=== PATIENT | male | born 1945 | race Caucasian/White ===

== ENCOUNTER 2020-11-05 15:00 | Emergency (ER) | payer MEDICARE, SELFPAY ==
[2020-11-05 15:14] VITALS: BP 174/87; PULSE 91; RESP 18; TEMP 37.4; O2SAT 98
--- NOTE | 2020-11-05 15:46 | ED.SKABFB ---
HPI - Skin/Abscess/Foreign Bdy General Chief complaint: Skin/Abscess/Foreign Body Stated complaint: rash to side of head Time Seen by Provider: 11/05/20 15:46 History of Present Illness HPI narrative: 75 yo male presents to the ED for a rash. Painful scabbed rash to the right side of the scalp for the past few days. No other symptoms. He has not tried anything for treatment. Related Data Allergies Allergy/AdvReac Type Severity Reaction Status Date / Time amoxicillin [From Augmentin] AdvReac Vomiting Verified 11/05/20 15:19 clavulanic acid AdvReac Vomiting Verified 11/05/20 15:19 [From Augmentin] oxycodone AdvReac Other Verified 11/05/20 15:19 Review of Systems Constitutional: Constitutional: Denies fever(s) and Denies weakness Eyes: Eyes: Reports no additional eye complaints and Denies change in vision ENT: Denies dizziness and Denies sore throat Cardiovascular: Cardiovascular: Denies chest pain Respiratory: Respiratory: Denies dyspnea Gastrointestinal: Gastrointestinal: Denies nausea Neurologic: Denies dizziness and Denies weakness PMFSH Past Medical History Medical History Diabetes mellitus, type II HTN (hypertension) Social History Social History Gender identity (if verbalized by the patient): Male Exam Const: General: no acute distress and alert Nutritional Appearance: well nourished Orientation/consciousness: patient oriented x3 HENMT: Ears: external ears normal and EAC's normal Other: vesicular rash with some open and scabbed areas in the right C2 dermatome. No facial involvement. Eyes: Conjunctivae: conjunctivae normal Pupils: Equal, round and reactive pupils present EOM: EOMs intact bilaterally Neck: Neck: normal visual inspection Resp: Effort & Inspection: normal respiratory effort Auscultation: clear to auscultation bilaterally Cardio: Rate: regular rate Rhythm: regular rhythm Skin: General skin exam: normal color Neuro: General: patient oriented x3, moves all extremities, no focal motor deficits and CN's II-XI intact bilaterally Speech: normal speech Psych: Mental Status: mental status grossly normal Affect: normal affect Course Vital Signs Vital signs: Vital Signs Temperature 37.4 C 11/05/20 15:14 Pulse Rate 91 11/05/20 15:14 Respiratory Rate 18 11/05/20 15:14 Blood Pressure 174/87 H 11/05/20 15:14 Pulse Oximetry 98 11/05/20 15:14 Temperature 37.4 C 11/05/20 15:14 Pulse Rate 91 11/05/20 15:14 Respiratory Rate 18 11/05/20 15:14 Blood Pressure 174/87 H 11/05/20 15:14 Pulse Oximetry 98 11/05/20 15:14 MDM - Skin/Abscess/Foreign Bdy MDM Narrative Medical decision making narrative: Examine consistent with shingles Medical Records Attestation: I reviewed the patient's medical records. Discharge Plan Discharge Clinical Impression: Shingles Patient Disposition: Home, Self-Care Condition: Stable Instructions: Antibiotic Pham Orosco (ED) Prescriptions: New valacyclovir 1 gram tablet 1,000 mg PO Q8H Qty: 20 RF: 0 Follow-up/Referrals: PHYSICIAN NOT ON STAFF,NONSTAFF [Non-Staff] -
[2020-11-05] MEDS: valACYclovir HCL 500 MG TABLET 1000 MG PO (16:35)
== END 2020-11-05 16:36 | disposition home or self-care (01) ==
PROVIDERS: Emergency Provider Emergency Medicine; PCP Internal Medicine
DX: B02.9 Zoster without complications (principal); E11.9 Type 2 diabetes mellitus without complications; I10 Essential (primary) hypertension
CPT/HCPCS: 99283; A9270

== ENCOUNTER 2023-05-15 09:05 | Inpatient (IN) | payer MEDICARE, SELFPAY ==
[2023-05-15] VITALS (11 sets, daily range): BP systolic 126–166; BP diastolic 67–94; PULSE 63–91; RESP 14–19; TEMP 36.2–37.6; O2SAT 97–100; BMI 23.6
--- NOTE | ~2023-05-15 | XR_ITS ---
Cervical Spine: AP, lateral, open-mouth views Clinical History: Pain Findings: There is anterior fusion from C6 to C7. There are anterior osteophytes throughout the cervi bonifacio spine. Remaining disc spaces are well preserved. There is moderate facet arthropathy throughout t he cervical spine. Pre-vertebral soft tissues are unremarkable. Impression: Moderate degenerative spondylosis. Anterior fusion of C6-C7. No fracture or subluxation evident. Reviewed, dictated and finalized at location . Impression: Moderate degenerative spondylosis. Anterior fusion of C6-C7. No fracture or subluxation evident.
--- NOTE | ~2023-05-15 | US_ITS ---
EXAMINATION: US carotid duplex BI DATE: 05/15/2023 15:33 INDICATION: Old infarct in the right basal ganglia. Cerebrovascular accident. TECHNIQUE: Grayscale, color Doppler, and pulsed Doppler images of the cervical carotid arteries were obtained. The degree of vessel stenosis is placed in one of the following categories: normal, <50%, 5 0-69%, >=70% but less than near-occlusion, near-occlusion, or total occlusion. Note that percent sten osis relative to normal distal artery lumen diameter is indirectly measured from velocity measurement s as described by Eusebio, et al. Radiology 2003; 229:340-346. COMPARISON: None. FINDINGS: RIGHT: The right common carotid artery (CCA) peak systolic velocity (PSV) is 63 cm/s. The right internal car otid artery (ICA) PSV is 10 cm/s. The right ICA end-diastolic velocity (EDV) is 5 cm/s. The right ICA /CCA PSV ratio is 0.1. Grayscale and color Doppler images yield an estimate of >=50% diameter reducti on from plaque in the ICA. There is antegrade flow in the right vertebral artery. LEFT: The left CCA PSV is 71 cm/s. The left ICA PSV is 92 cm/s. The left ICA EDV is 29 cm/s. The left ICA/C CA PSV ratio is 1.3. Grayscale and color Doppler images yield an estimate of <50% diameter reduction from plaque in the ICA. There is antegrade flow in the left vertebral artery. IMPRESSION: 1. 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 2. <50% stenosis in the left internal carotid artery. Reviewed, dictated and finalized at location A.
--- NOTE | ~2023-05-15 | CT_ITS ---
EXAMINATION: CT brain wo con DATE: 05/15/2023 10:01 INDICATION: One month of left-sided weakness TECHNIQUE: Computed tomography (CT) of the head was performed without intravenous contrast. Sagittal and coronal reconstructions were performed. The mA was adjusted according to patient size. Iterative reconstruction technique was employed. The dose-length product was 605.33 mGy-cm. COMPARISON: None FINDINGS: Moderate-sized region of encephalomalacia in the right frontal lobe extending to the insula and right basal ganglia consistent with sequela of chronic infarct. No acute intracranial hemorrhage, acute in farction or abnormal extra axial fluid collection. Symmetric prominence of the sulci consistent with mild age-appropriate diffuse cerebral volume loss. Ventricles are normal and symmetric. No mass/mass effect. Changes of bilateral intraocular lens replacement. The orbits, paranasal sinuses and mastoid air cells are normal. Intracranial calcified cerebral atherosclerosis is noted. IMPRESSION: 1. Encephalomalacia consistent with moderate-sized chronic infarct involving the right frontal lobe, basal ganglia and insula. Reviewed, dictated and finalized at location B. IMPRESSION: 1. Encephalomalacia consistent with moderate-sized chronic infarct involving th e right frontal lobe, basal ganglia and insula.
--- NOTE | ~2023-05-15 | MR_ITS ---
EXAMINATION: MR brain/brain stem wo/w con DATE: 05/15/2023 14:02 INDICATION: Cerebrovascular accident. Left hemiparesis. TECHNIQUE: Magnetic resonance imaging (MRI) of the brain and brainstem was performed without and with 15 mL MultiHance intravenous contrast. COMPARISON: Head CT 05/15/2023 FINDINGS: There are small old infarcts in left cerebellum. There is chronic encephalomalacia involvin g the right basal ganglia, right insula, and right frontoparietal region. There are old blood product s in the right basal ganglia. There are scattered areas of nonspecific increased T2-weighted signal i ntensity in the cerebral white matter, which is within normal limits for the patient's age. The ventr icles are normal in size. There are likely changes of ocular lens replacement surgeries. The paranasa l sinuses are clear. The mastoid air cells are normal. IMPRESSION: 1. Old infarcts involving the left cerebellum, right basal ganglia, right insula, and right frontopar ietal region. Reviewed, dictated and finalized at location A. IMPRESSION: 1. Old infarcts involving the left cerebellum, right basal ganglia, right insul a, and right frontoparietal region.
--- NOTE | ~2023-05-15 | CT_ITS ---
EXAMINATION: CTA brain carotid DATE: 05/16/2023 13:11 INDICATION: Cerebrovascular accident. Near occlusion stenosis of the right internal carotid artery. TECHNIQUE: Computed tomographic angiography (CTA) of the head was performed without and with 100 mL O mnipaque-350 intravenous contrast. CTA of the neck was performed with intravenous contrast. Automated exposure control and iterative reconstruction technique were employed. The dose-length product was 1 957.74 mGy-cm. Maximum intensity projection and volume rendered 3D-reconstructions were created by nohemi vasquez technologist on a separate workstation. COMPARISON: Head CT 05/15/2023, brain MRI 05/15/2023 FINDINGS: HEAD CTA: There is an old infarct in left cerebellum. There is an old infarct involving the right bas al ganglia, right insula, and right frontoparietal region. There is no intracranial hemorrhage, acute infarction, or abnormal intracranial mass lesion. The ventricles are normal in size. There are likel y changes of ocular lens replacement surgeries. There is mild mucosal thickening in left maxillary si nus. The mastoid air cells are normal. Left vertebral artery is dominant. There is no significant roseann nosis of basilar artery or the posterior cerebral arteries. There is total occlusion of right interna l carotid artery with supraclinoid reconstitution. There is no significant stenosis of left internal carotid artery. There is no significant stenosis of the anterior or middle cerebral arteries. Anterio r communicating artery is normal. The posterior communicating arteries are normal. There is no aneury sm. NECK CTA: There are no pathologically enlarged lymph nodes. There is no significant stenosis of the v ertebral arteries. 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 There is plaque in prox imal left internal carotid artery. There is 17% stenosis of the proximal left internal carotid artery relative to normal distal artery lumen diameter. There are changes of anterior fusion procedure at C 6-C7. There is moderate cervical spondylosis. IMPRESSION: 1. Old infarcts involving the left cerebellum, right basal ganglia, right insula, and right frontopar ietal region. 2. 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 3. 17% stenosis of the proximal left internal carotid artery relative to normal distal artery lumen d iameter (NASCET criteria). Reviewed, dictated and finalized at location A. IMPRESSION: 1. Old infarcts involving the left cerebellum, right basal ganglia, right insul a, and right frontoparietal region. 2. 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 3. 17% stenosis of the proximal left internal carotid artery relative to normal distal artery lumen diameter (NASCET criteria).
--- NOTE | 2023-05-15 09:08 | ECG_ITS ---
Measurements Intervals [place] Rate: 92 P: -31 [place]: 255 QRS: -27 QRSD: 134 T: 60 QT: 406 QTc: 502 Interpretive Statements SINUS RHYTHM WITH FIRST DEGREE AV BLOCK INTRAVENTRICULAR CONDUCTION DELAY INFERIOR INFARCT, AGE INDETERMINATE ANTERIOR INFARCT, AGE INDETERMINATE BORDERLINE ST-T WAVE ABNORMALITY- HIGH LATERAL LEADS BASELINE ARTIFACT- I, AVL ABNORMAL ECG NO PREVIOUS ECG AVAILABLE FOR COMPARISON Electronically Signed On 05-15-2023 9:50:36 CDT by Kal Rocha D.O.
[2023-05-15 09:19] LABS: Glucose Point of Care 144 mg/dl (65-105)
[2023-05-15 09:28] LABS: Basophils Percent Auto 0.4 % (0.2-1.2); Eosinophils Percent Auto 0.5 % (0-4.4); Hematocrit 42.5 % (42.0-52.0); Hemoglobin 14.2 g/dL (14.0-18.0); Immature Granulocyte Absolute 0.03 K/mm3 (0.00-0.031); Immature Granulocyte Percent A 0.4 % (0-0.5); Immature Platelet Fraction Pct 4.6 % (0.9-11.2); Lymphocytes Absolute Auto 1.18 K/mm3 (0.9-3.2); Lymphocytes Percent Auto 15.1 % (18.3-44.2); Mean Corpuscular HGB Conc 33.4 g/dl (32-36); Mean Corpuscular Hemoglobin 30.7 pg (26-34); Mean Platelet Volume 10.2 fl (7.4-10.4); Monocytes Absolute Auto 0.6 K/mm3 (0.1-0.6); Monocytes Percent Auto 7.1 % (2.6-8.5); Neutrophils Percent Auto 76.5 % (45.5-73.1); Platelet Count Result 129 k/mm3 (150-375); Red Blood Count 4.62 M/mm3 (4.6-6.20); Red Cell Distribution Width 12.8 % (11.5-14.5); White Blood Count 7.8 K/mm3 (4.5-10.0)
[2023-05-15 09:36] LABS: Alanine Aminotransferase 32 U/L (6-50); Albumin Level 4.5 g/dL (3.5-5.1); Alkaline Phosphatase 69 U/L (38-126); Anion Gap 9 mmol/L (8-16); Aspartate Amino Transferase 44 U/L (17-59); Bilirubin,Total 0.9 mg/dL (0.2-1.3); Blood Urea Nitrogen 16 mg/dL (9-20); Calcium 8.8 mg/dL (8.4-10.2); Carbon Dioxide 26 mmol/L (22-30); Chloride 107 mmol/L (98-107); Estimated CRCL calculation 62 ml/min; Estimated Glomerular Filt Rate > 60; Glucose 131 mg/dL (65-110); Sodium 142 mmol/L (137-145)
[2023-05-15 10:37] LABS: Appearance Urine Clear (Clear); Bacteria Urine None Seen /hpf; Bilirubin Urine Negative (Negative); Blood Urine 2+ (Negative); Color Urine Yellow (Yellow); Glucose Urine UA 2+ mg/dL (Negative); Ketones Urine Negative (Negative); Leukocyte Esterase Ur Negative LEU/UL (Negative); Nitrate Urine Negative (Negative); Non Pathogenic Casts 0-2; Protein Urine 1+ mg/dL (Negative); RBC Urine 0-2 /hpf (0-2); Specific Grav Ur 1.013 (1.001-1.035); Squamous Epithelial Cell Urine None seen /hpf (Few); Urobilinogen Urine 0.2 mg/dL (<2.0); WBC Urine 0-5 /hpf; pH Urine 5.5 (5.0-9.0)
[2023-05-15 10:44] LABS: Add Urine Microscopic? YES
--- NOTE | 2023-05-15 11:02 | PC.NURSE ---
Patient report given to LOBO De Dios. All questions answered and care of patient transferred.
--- NOTE | 2023-05-15 11:04 | ED.GENADULT ---
HPI - General Adult General Chief complaint: Weakness Stated complaint: weakness Time Seen by Provider: 05/15/23 09:07 History of Present Illness HPI narrative: 77-year-old male present emerged department for evaluation of generalized weakness, hypoglycemia and left-sided deficit that has been ongoing for months. Patient is a known diabetic and is on insulin. Patient is very noncompliant with his medications. Patient states that he was feeling weak this morning was unable to get off the floor and EMS was called. Upon arrival to the scene patient's blood sugar was 42. He was treated with oral glucose and patient's blood sugar improved but he still had generalized weakness. Patient was transported to the ED for further evaluation. Upon arrival to the ED patient does admit that he has had increased left hand weakness over the course of the last month. Patient states that he does have a prior history of CVA approximately 5 years ago but had no deficit from this. Patient does not take any blood thinners and does not take his prescribed aspirin. Related Data Home Medications Medication Instructions Recorded Confirmed atorvastatin 80 mg tablet 80 mg PO HS 05/15/23 05/15/23 dapagliflozin propanediol 5 mg 20 mg PO HS 05/15/23 05/15/23 tablet (Farxiga) gabapentin 400 mg capsule 400 mg PO HS PRN nerve pain 05/15/23 05/15/23 glimepiride 4 mg tablet 4 mg PO HS 05/15/23 05/15/23 lisinopril 5 mg tablet 5 mg PO HS 05/15/23 05/15/23 Allergies Allergy/AdvReac Type Severity Reaction Status Date / Time amoxicillin [From Augmentin] AdvReac Vomiting Verified 11/05/20 15:19 clavulanic acid AdvReac Vomiting Verified 11/05/20 15:19 [From Augmentin] oxycodone AdvReac Other Verified 11/05/20 15:19 Review of Systems Review of Systems: All systems reviewed & are unremarkable except as noted in HPI and below PMFSH Past Medical History Medical History (Updated 05/15/23 @ 13:36 by Katherin Marsh PA-C) Cerebrovascular accident Coronary artery disease Hypertension Nicotine dependence Shingles Type 2 diabetes mellitus Surgical History Surgical History (Updated 05/15/23 @ 13:32 by Katherin Marsh PA-C) History of amputation of toe (2016) History of cardiac catheterization History of coronary artery bypass graft (05/11/08) Family History Family History (Updated 05/15/23 @ 13:33 by Katherin Marsh PA-C) Other Cancer Diabetes mellitus Heart disease Social History Social History (Updated 05/15/23 @ 13:35 by Katherin Marsh PA-C) Social History: Surrogate medical decision maker: Domonique Adler, spouse. Code status: Full code. Smoking status: Current some day smoker Tobacco type: cigars Alcohol intake: current Drinks per week: 7 Substance use: never Lack of Transportation: No Lack of Food: Never True Current Housing: I Have Housing Concerned About Future Housing: No Difficulty Paying Gas/Electric Bills: No Difficulty Paying for Meds: No Currently Unemployed: No Education: Decline to Answer Difficulty w/ Childcare or Family Care: No Additional living arrangements comments: Lives with spouse in [place]. Additional occupation/education comments: Retired. Spiritual care concerns: No Exam Narrative: APPEARANCE: Well appearing, no pain, no distress, well-nourished. HEAD: normocephalic, atraumatic. EYES: PERRLA/EOMI, conjunctivae clear. NOSE: Normal no drainage NECK: Supple. No adenopathy, no masses. RESPIRATORY: Airway patent, respirations nonlabored. Clear to auscultation bilaterally, no rales, rhonchi, wheezing. CARDIOVASCULAR: Regular rate and rhythm without murmurs rubs or gallops. ABDOMINAL: Soft, nontender, nondistended, normal bowel sounds MUSCULOSKELETAL: Moves all extremities. Strength/ROM intact, No edema, No calf tenderness. NEURO: Left hand drift and ataxia SKIN: Warm, dry. Normal Color PSYCHIATRIC: Normal affect/mood. Course Course Emergenc
[2023-05-15] MEDS: ASPIRIN 81 MG CHEWABLE TABLET 324 MG PO (12:03)
--- NOTE | 2023-05-15 12:33 | ADMGEN ---
This patient, Santhosh Adler, was admitted to Medical Room 345-01. Patient/family oriented to hospital policies and general routines including ID bracelet, bed and alarms, visiting hours, pain management, procedures, bathroom and other care routines, personal items, smoking policy, room service/diet, and visiting hours. Information on how to activate the Rapid Response Team has been discussed. Patient/Family are encouraged to report perceived risks to care and to ask questions if they do not understand what they are told or what they should do.
--- NOTE | 2023-05-15 13:29 | PM.IMHP ---
H&P: HPI History of Present Illness Date/Time: 05/15/23 13:30 Chief Complaint: Weakness. Narrative: This is a 77-year-old male with history of stroke, coronary artery disease, hypertension, and type 2 diabetes mellitus who presented to the emergency department via EMS from home for evaluation of weakness. The patient provides the following history. He was feeling weak this morning and apparently had a fall and was unable to get off the floor. It is not unusual for him to fall as he has balance issues for several reasons. 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 EMS was summoned and his glucose was 42 on their arrival. He received oral glucose with improvement however he was still very weak and he was brought in for evaluation. On arrival to the ED he was noticed to have left-sided weakness however he goes on to say that this has been present for months however more recently his left arm and especially his left hand have been more weak and he is dropping things. He has thus far blames his symptoms on peripheral neuropathy. He had a stroke 5 years ago but reports having no deficits from that. CT of the brain shows an area of encephalomalacia related to a chronic infarct in the right frontal lobe, basal ganglia, and insula consistent with these findings. Vital signs have been stable since arrival. Labs are pretty unremarkable. He is being admitted in this setting for further workup and PT/OT evaluation as he was unable to ambulate without assistance in the ED. at the time my evaluation he has no acute complaints. Review of Systems Review of Systems: Twelve systems were reviewed. He has chronically poor balance as detailed above with frequent falls. No recent cold or flu symptoms. No chest pain, pleuritic pain, or palpitations. He denies cough and shortness of breath. Appetite has been good. No nausea, vomiting, or diarrhea. No dysuria. Except as documented, all other systems were reviewed and are negative PMFSH Past Medical History Medical History (Updated 05/15/23 @ 13:36 by Katherin Marsh PA-C) Cerebrovascular accident Coronary artery disease Hypertension Nicotine dependence Shingles Type 2 diabetes mellitus Surgical History Surgical History (Updated 05/15/23 @ 13:32 by Katherin Marsh PA-C) History of amputation of toe (2016) History of cardiac catheterization History of coronary artery bypass graft (05/11/08) Family History Family History (Updated 05/15/23 @ 13:33 by Katherin Marsh PA-C) Other Cancer Diabetes mellitus Heart disease Social History Social History (Updated 05/15/23 @ 13:35 by Katherin Marsh PA-C) Social History: Surrogate medical decision maker: Domonique Adler, spouse. Code status: Full code. Smoking status: Current some day smoker Tobacco type: cigars Alcohol intake: current Drinks per week: 7 Substance use: never Lack of Transportation: No Lack of Food: Never True Current Housing: I Have Housing Concerned About Future Housing: No Difficulty Paying Gas/Electric Bills: No Difficulty Paying for Meds: No Currently Unemployed: No Education: Decline to Answer Difficulty w/ Childcare or Family Care: No Additional living arrangements comments: Lives with spouse in [place]. Additional occupation/education comments: Retired. Spiritual care concerns: No Meds Home Medications and Allergies Home Medications Medication Instructions Recorded Confirmed Type atorvastatin 80 mg tablet 80 mg PO HS 05/15/23 05/15/23 History dapagliflozin propanediol 5 mg 20 mg PO HS 05/15/23 05/15/23 History tablet (Farxiga) gabapentin 400 mg capsule 400 mg PO HS PRN nerve pain 05/15/23 05/15/23 History glimepiride 4 mg tablet 4 mg PO HS 05/15/23 05/15/23 History lisinopril 5 mg tablet 5 mg PO HS 05/15/23 05/15/23 History Allergies Allergy/AdvReac Type Severity Reaction Status Date / Ti
[2023-05-15 13:54] LABS: Creatine Kinase 859 U/L (55-170)
[2023-05-15 13:56] LABS: Hemoglobin A1C 6.1 % (<5.7)
[2023-05-15 14:52] LABS: Thyroid Stimulating Hormone Reflex 0.588 uIU/mL (0.465-4.68)
[2023-05-15 17:03] LABS: Glucose Point of Care 207 mg/dl (65-105)
[2023-05-15] MEDS: lisinopriL 5 MG TABLET PO (20:02)
[2023-05-15 20:44] LABS: Glucose Point of Care 256 mg/dl (65-105)
[2023-05-16] VITALS (9 sets, daily range): BP systolic 118–148; BP diastolic 64–77; PULSE 52–81; RESP 13–16; TEMP 36.1–36.8; O2SAT 98–100
--- NOTE | 2023-05-16 | ECHO_ITS ---
Patient Info Name: Santhosh Adler Age: 77 years : 1945 Gender: Male Ht: 70 in Wt: 215 lbs BSA: 2.22 m2 HR: 70 bpm BP: 148 / 77 mmHg Heart Rhythm: Sinus Rhythm Technical Quality: Fair Exam Date: 05/16/2023 11:27 AM Exam Location: [facility] Pulmonary Patient Status: Inpatient Admit Date: 05/15/2023 Staff Ordering Physician: Katherin Marsh PA-C Radiology Interventional Physician: Karime Lima RDCS Attending Provider: Gomez Luis MD Referring Physician: Salma MILTON; Exam Type: CA echo doppler color flow Study Info Indications - cva/htn/cad Complete two-dimensional, color flow and Doppler transthoracic echocardiogram is performed. Summary 1. Complete two-dimensional, color flow and Doppler transthoracic echocardiogram is performed. 2. Left ventricular chamber dimension is normal. 3. Left ventricular systolic function is mildly reduced, estimated at 45-50%. 4. There is moderately increased left ventricular wall thickness. 5. Left ventricular septal wall motion is abnormal with septal motion related to bundle branch block. The inferior wall appears hypokinetic. The apex appears hypokinetic on some views. 6. Right ventricular chamber dimension is normal. 7. Right ventricular systolic function is reduced. 8. There is moderate mitral valve regurgitation. 9. There is trace tricuspid valve regurgitation. 10. The aortic root size at the sinus of Valsalva is dilated. Left Ventricle Left ventricular chamber dimension is normal. Left ventricular systolic function is mildly reduced, estimated at 45-50%. There is moderately increased left ventricular wall thickness. Left ventricular septal wall motion is abnormal with septal motion related to bundle branch block. The inferior wall appears hypokinetic. The apex appears hypokinetic on some views. Right Ventricle Right ventricular chamber dimension is normal. Right ventricular systolic function is reduced. Left Atria Left atrial chamber dimension is normal. Right Atria Right atrial chamber dimension is normal. Atrial Septum Intact interatrial septum visualized by color flow imaging. Aortic Valve The aortic valve is probable trileaflet. There is no aortic valve stenosis. There is no aortic valve regurgitation. There is mild aortic valve calcification. Pulmonic Valve The pulmonic valve is not well visualized. Mitral Valve There is moderate mitral valve regurgitation. The mitral valve annulus is mildly calcified. Tricuspid Valve There is trace tricuspid valve regurgitation. Pericardium/Pleural There is no pericardial effusion. Inferior Vena Cava Normal inferior vena cava with >50% collapse upon inspiration consistent with normal right atrial pressure, 3 mmHg. Aorta The aortic root size at the sinus of Valsalva is dilated. Left Ventricular Outflow Tract Name Value Normal LVOT 2D LVOT Diameter 2.2 cm LVOT Doppler LVOT Peak Gradient 3 mmHg LVOT Mean Gradient 1 mmHg LVOT VTI 14 cm LVOT VTI/AV VTI Ratio 0.6 LVOT Stroke Volume 52 ml LVOT CO 3.4 l/min
[2023-05-16 05:48] LABS: Hematocrit 42.1 % (42.0-52.0); Hemoglobin 13.9 g/dL (14.0-18.0); Immature Platelet Fraction Pct 5.7 % (0.9-11.2); Mean Corpuscular Hemoglobin 30.5 pg (26-34); Mean Corpuscular Volume 92.3 fl (80-100); Mean Platelet Volume 10.8 fl (7.4-10.4); Platelet Count Result 127 k/mm3 (150-375); Red Blood Count 4.56 M/mm3 (4.6-6.20); Red Cell Distribution Width 12.8 % (11.5-14.5); White Blood Count 6.4 K/mm3 (4.5-10.0)
[2023-05-16 05:57] LABS: Anion Gap 7 mmol/L (8-16); Blood Urea Nitrogen 18 mg/dL (9-20); Calcium 8.9 mg/dL (8.4-10.2); Carbon Dioxide 29 mmol/L (22-30); Chloride 105 mmol/L (98-107); Estimated CRCL calculation 64 ml/min; Estimated Glomerular Filt Rate > 60; Glucose 124 mg/dL (65-110); Sodium 141 mmol/L (137-145)
[2023-05-16] MEDS: GABAPENTIN 400 MG CAPSULE PO (06:39)
[2023-05-16] MEDS: ASPIRIN 81 MG ENTERIC TABLET PO (08:34)
[2023-05-16 08:37] LABS: Glucose Point of Care 112 mg/dl (65-105)
--- NOTE | 2023-05-16 10:04 | PM.IMPN ---
Progress Note: A&P Assessment and Plan (1) Generalized weakness: Code(s): R53.1 - Weakness Status: Acute (2) Hypoglycemia: Code(s): E16.2 - Hypoglycemia, unspecified Status: Acute (3) Cerebrovascular accident: Code(s): I63.9 - Cerebral infarction, unspecified Status: Acute (4) Type 2 diabetes mellitus: Code(s): E11.9 - Type 2 diabetes mellitus without complications Status: Acute (5) Thrombocytopenia: Code(s): D69.6 - Thrombocytopenia, unspecified Status: Acute (6) Hypertension: Code(s): I10 - Essential (primary) hypertension Status: Acute (7) Coronary artery disease: Code(s): I25.10 - Atherosclerotic heart disease of [place] coronary artery without angina pectoris Status: Acute (8) Carotid arterial disease: Code(s): I77.9 - Disorder of arteries and arterioles, unspecified Status: Acute (9) Acute CVA (cerebrovascular accident): Code(s): I63.9 - Cerebral infarction, unspecified Status: Acute Plan General weakness Multiple factors, overt CVA and hypoglycemia Hypoglycemia Oral medications Start is standing scale Hypoglycemia protocol is initiated Currently hypoglycemia is corrected Right internal carotid stenosis Neurologist saw examined the patient, continue aspirin Plavix p.o. Will transfer patient to other facility for vascular surgeon evaluation treatment old CVA Patient is on aspirin and Plavix Neuro check fall precaution Neurologist also recommended to continue home medications Atorvastatin 80 mg at night 2. Farsi eager 20 mg at night 3. Gabapentin 400 mg at night on p.r.n. lisinopril 5 mg at night .? Subjective Date/time seen: 05/16/23 10:04 Interval history: I saw on exam patient today, patient still has general weakness, Exam Narrative: GENERAL: Pleasant, in no acute distress. Well-nourished. - EYES: EOMI. Anicteric. - HENT: Moist mucous membranes. - LUNGS: Clear to auscultation bilaterally, no wheezing, rhonchi, or rales. - CARDIOVASCULAR: Regular rate and rhythm. No murmur. No JVD. - ABDOMEN: Soft, non-tender and non-distended. No palpable masses. - EXTREMITIES: No edema. Peripheral pulses 2+. Non-tender. - NEUROLOGIC: left hemiparesis and left hypoesthesia with hyperreflexia and upgoing left plantar response. . CN II-XII grossly intact. - PSYCHIATRIC: Awake, Alert and oriented x 3. Appropriate mood and affect. - SKIN: No rashes or lesions. Warm. - LYMPH: No cervical lymphadenopathy. Objective Data Vital Signs Vital Signs: Vital Signs - 24 hr 05/15/23 10:34 05/15/23 10:35 05/15/23 10:36 Temperature Pulse Rate 91 91 90 Respiratory Rate 19 19 15 Blood Pressure 144/78 H Pulse Oximetry 99 100 99 Oxygen Delivery 05/15/23 10:45 05/15/23 10:46 05/15/23 12:30 Temperature Pulse Rate 84 77 Respiratory Rate 17 16 Blood Pressure 126/67 Pulse Oximetry 98 98 Oxygen Delivery Room Air 05/15/23 14:51 05/15/23 16:00 05/15/23 20:00 Temperature 97.1 F L Pulse Rate 78 63 71 Respiratory Rate 16 Blood Pressure 158/78 H Pulse Oximetry 100 Oxygen Delivery 05/15/23 21:37 05/16/23 00:00 05/15/23 21:18 Temperature 99.6 F Pulse Rate 83 54 L Respiratory Rate 14 Blood Pressure 161/83 H Pulse Oximetry 97 97 Oxygen Delivery Room Air 05/16/23 04:00 05/16/23 05:40 05/16/23 08:30 Temperature 97.6 F Pulse Rate 66 70 Respiratory Rate 13 Blood Pressure 148/77 H Pulse Oximetry 98 Oxygen Delivery Room Air 05/16/23 08:00 Temperature Pulse Rate 81 Respiratory Rate Blood Pressure Pulse Oximetry Oxygen Delivery Intake/Output Intake/Output: Intake & Output 05/13/23 05/14/23 05/15/23 05/16/23 23:59 23:59 23:59 23:59 Intake Total 840 1560 Balance 840 1560 Meds/Results Medications: Active Medications Generic Name Dose Route Start Last Admin Trade Name Freq PRN Reason Stop Dose
--- NOTE | 2023-05-16 11:39 | WPDNEURCNPN ---
Assessment and Plan Assessment and plan (1) Type 2 diabetes mellitus: Qualifiers: Diabetes mellitus terminal makeup operator insulin use: with terminal makeup operator use Diabetes mellitus complication status: with circulatory complication Code(s): E11.9 - Type 2 diabetes mellitus without complications Status: Acute (2) Hypertension: Code(s): I10 - Essential (primary) hypertension Status: Acute (3) Coronary artery disease: Code(s): I25.10 - Atherosclerotic heart disease of [place] coronary artery without angina pectoris Status: Acute (4) Nicotine dependence: Code(s): F17.200 - Nicotine dependence, unspecified, uncomplicated Status: Acute (5) Carotid arterial disease: Code(s): I77.9 - Disorder of arteries and arterioles, unspecified Status: Acute Plan 1. 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 Near occlusion of the right internal carotid artery 3. Diabetic neuropathy plan obtain the echocardiogram in addition to the CTA of the brain and then arrange for the transfer to the vascular service. In the meantime will be continued on aspirin and Plavix. Consult date: 05/16/23 HPI: Santhosh Adler is a 77 year old maleAdmitted to the hospital through the emergency room for the complaints of generalized weakness in addition to the history of being diabetic, having had the left-sided neurological deficit from the previous stroke, and with the history that he has been on insulin as well though reportedly he is very noncompliant with his medication on the day of admission it was mentioned that he was feeling weak the morning and was unable to get off the floor when the EMS were called to the scene upon arrival his blood sugar was documented only 42 he was treated with oral glucose supplement but still he was complaining of being weak and was transported to emergency room for further evaluation. His medications included 1. Atorvastatin 80 mg at night 2. Farsi eager 20 mg at night 3. Gabapentin 400 mg at night on p.r.n. basis 4. glimepiride 4 mg at night 5.. lisinopril 5 mg at night . He does have ongoing history of hypertension, type 2 diabetes mellitus, coronary artery disease, and previous stroke in addition to the history of amputation of the toe and coronary artery bypass grafting in May of 2008 he is currently alcohol intake her 7 drinks per week currently some day smoker. Initial evaluation in the Emergency Room documented him to have the blood pressure 166/94 though he was afebrile CBC with low platelet count of 129 BMP he blood sugar of [address] normal lab. Initial CT of the head documented encephalomalacia consistent with moderate size chronic infarct involving the right frontal lobe basal ganglia and insular EKG revealed no atrial fibrillation. Subsequent to the hospitalization has had the brain MRI which documented in addition to right basal gangliar right insular and right frontoparietal stroke old infarcts involving the left cerebellum as well. And the carotid study showed near occlusion stenosis in the right internal carotid artery with less than 50% stenosis in left internal carotid artery. Echocardiogram is being done at this time. [facility] Past Medical History Medical History (Updated 05/16/23 @ 11:50 by Winston Foy MD) Cerebrovascular accident Coronary artery disease Hypertension Nicotine dependence Shingles Type 2 diabetes mellitus Surgical History Surgical History (Updated 05/15/23 @ 13:32 by Katherin Marsh PA-C) History of amputation of toe (2016) History of cardiac catheterization History of coronary artery bypass graft (05/11/08) Family History Family History (Updated 05/15/23 @ 13:33 by Katherin Marsh PA-C) Other Cancer Diabetes mellitus Heart disease Social History Social History (Updated 05/15/23 @ 13:35 by Katherin Marsh PA-C) Social History: Surrogate medical decision maker: Domonique Nayely, spouse. Code status: Full code. Smoking status: Curr
[2023-05-16] MEDS: CLOPIDOGREL BISULFATE 75 MG TABLET PO (12:29)
--- NOTE | 2023-05-16 13:21 | PCPTNOTE ---
On 05/16/23, the student, [Brisa Jones], provided care and completed [facility] documentation on this patient. I have reviewed the student's documentation and agree with the findings.
[2023-05-16 13:25] LABS: Glucose Point of Care 213 mg/dl (65-105)
[2023-05-16 17:02] LABS: Glucose Point of Care 263 mg/dl (65-105)
[2023-05-16] MEDS: INSULIN ASPART (*BKC) 100 UNITS/ML SUB-Q (17:08)
[2023-05-16] MEDS: lisinopriL 5 MG TABLET PO (20:25)
[2023-05-16 20:39] LABS: Glucose Point of Care 285 mg/dl (65-105)
[2023-05-17] VITALS (9 sets, daily range): BP systolic 130–150; BP diastolic 66–74; PULSE 49–83; RESP 16–18; TEMP 36.2–36.8; O2SAT 97–100
[2023-05-17 08:20] LABS: Glucose Point of Care 149 mg/dl (65-105)
[2023-05-17] MEDS: CLOPIDOGREL BISULFATE 75 MG TABLET PO (09:30)
[2023-05-17] MEDS: ASPIRIN 81 MG ENTERIC TABLET PO (09:30)
[2023-05-17 12:03] LABS: Glucose Point of Care 239 mg/dl (65-105)
[2023-05-17] MEDS: INSULIN ASPART (*BKC) 100 UNITS/ML SUB-Q ×2 (12:16→17:34)
--- NOTE | 2023-05-17 13:02 | PC.NURSE ---
Pt's came to nurses station requesting to speak with the RN. Pt's stated she wants the pt to be transferred to another hospital and stated that nothing is really being done here at [place]. RN educated pt's on CTA results and what neurology had written in their note yesterday. Family verbalized understanding. RN notified the hospitalist, Bryan, and neurologist, Yousif who both stated they would come and talk to the pt and family.
--- NOTE | 2023-05-17 14:29 | PM.IMPN ---
Progress Note: A&P Assessment and Plan (1) Generalized weakness: Code(s): R53.1 - Weakness Status: Acute (2) Hypoglycemia: Code(s): E16.2 - Hypoglycemia, unspecified Status: Acute (3) Cerebrovascular accident: Code(s): I63.9 - Cerebral infarction, unspecified Status: Acute (4) Type 2 diabetes mellitus: Qualifiers: Diabetes mellitus [facility] insulin use: with intermodal truck driver use Diabetes mellitus complication status: with circulatory complication Code(s): E11.9 - Type 2 diabetes mellitus without complications Status: Acute (5) Thrombocytopenia: Code(s): D69.6 - Thrombocytopenia, unspecified Status: Acute (6) Hypertension: Code(s): I10 - Essential (primary) hypertension Status: Acute (7) Coronary artery disease: Code(s): I25.10 - Atherosclerotic heart disease of [place] coronary artery without angina pectoris Status: Acute (8) Carotid arterial disease: Code(s): I77.9 - Disorder of arteries and arterioles, unspecified Status: Acute (9) Acute CVA (cerebrovascular accident): Code(s): I63.9 - Cerebral infarction, unspecified Status: Acute (10) Bradycardia: Code(s): R00.1 - Bradycardia, unspecified Status: Acute Plan General weakness Multiple factors, overt CVA and hypoglycemia Hypoglycemia Oral medications Start is standing scale Hypoglycemia protocol is initiated Currently hypoglycemia is corrected Right internal carotid stenosis Neurologist saw examined the patient, continue aspirin Plavix p.o. Management per neurologist recommendation old CVA Patient is on aspirin and Plavix Neuro check fall precaution Bradycardia Patient was monitors bradycardia 28 in the night Unclear etiology S Patient is not on beta-nida or calcium channel nida Consult court officer for evaluation and treatment, need to rule out sick sinus Neurologist also recommended to continue home medications Atorvastatin 80 mg at night 2. Farsi eager 20 mg at night 3. Gabapentin 400 mg at night on p.r.n. lisinopril 5 mg at night .? Subjective Date/time seen: 05/17/23 14:29 Interval history: I saw on exam patient today, patient still has general weakness, library monitor revealed bradycardia about 28 per minutes in the night Exam Narrative: GENERAL: Pleasant, in no acute distress. Well-nourished. - EYES: EOMI. Anicteric. - HENT: Moist mucous membranes. - LUNGS: Clear to auscultation bilaterally, no wheezing, rhonchi, or rales. - CARDIOVASCULAR: Regular rate and rhythm. No murmur. No JVD. - ABDOMEN: Soft, non-tender and non-distended. No palpable masses. - EXTREMITIES: No edema. Peripheral pulses 2+. Non-tender. - NEUROLOGIC: left hemiparesis and left hypoesthesia with hyperreflexia and upgoing left plantar response. . CN II-XII grossly intact. - PSYCHIATRIC: Awake, Alert and oriented x 3. Appropriate mood and affect. - SKIN: No rashes or lesions. Warm. - LYMPH: No cervical lymphadenopathy. Objective Data Vital Signs Vital Signs: Vital Signs - 24 hr 05/16/23 15:25 05/16/23 16:00 05/16/23 20:00 Temperature 97.0 F L Pulse Rate 52 L 70 61 Respiratory Rate 16 Blood Pressure 118/68 Pulse Oximetry 100 Oxygen Delivery 05/16/23 20:23 05/17/23 00:00 05/17/23 04:00 Temperature 98.2 F Pulse Rate 64 63 49 L Respiratory Rate 16 Blood Pressure 137/64 Pulse Oximetry 100 Oxygen Delivery 05/17/23 06:00 05/17/23 09:34 05/17/23 08:00 Temperature 97.2 F L Pulse Rate 75 67 Respiratory Rate 18 Blood Pressure 139/74 Pulse Oximetry 98 Oxygen Delivery Room Air 05/17/23 12:00 05/17/23 13:49 Temperature 97.3 F L Pulse Rate 83 76 Respiratory Rate 16 Blood Pressure 130/67 Pulse Oximetry 100 Oxygen Delivery Intake/Output Intake/Output: Intake & Output 05/14/23 05/15/23 05/16/23 05/17/23 23:59 23:59 23:59 23:59 Intake Tot
[2023-05-17 16:55] LABS: Glucose Point of Care 232 mg/dl (65-105)
--- NOTE | 2023-05-17 18:37 | PM.CNCAR ---
Assessment and Plan Assessment and plan (1) Second degree AV block, Mobitz type I: Code(s): I44.1 - Atrioventricular block, second degree Status: Acute Assessment and Plan: Asymptomatic second-degree AV block Mobitz type 1 on telemetry noted predominantly while patient is sleeping raising clinical concern for underlying obstructive sleep apneas contribution. -Avoid AV [place] blocking agents to avoid worsening or potentially symptomatic bradycardia or higher grade AV block. No prolonged pauses or high-grade AV blocks thus far. Transient 2:1 AV block while asleep with Mobitz type 1 noted elsewhere. Patient has evidence for conduction system disease with underlying first-degree AV block and QRS duration of 134 milliseconds with evidence of prior anterior and inferior infarct. there is no indication for pacemaker implantation at this time. TSH stable, electrolytes unremarkable last evaluation. Recheck electrolytes and renal function in a.m.. - Apnea link overnight to screen for obstructive sleep apnea. - Repeat 12 lead ECG in a.m.. Continue telemetry monitoring to assess for symptomatic radha or progressive conduction system disease. (2) Coronary artery disease: Qualifiers: Coronary Disease-Associated Artery/Lesion type: [place] artery [place] vs. transplanted heart: [place] heart Associated angina: without angina Qualified Code(s): I25.10 - Atherosclerotic heart disease of [place] coronary artery without angina pectoris Code(s): I25.10 - Atherosclerotic heart disease of [place] coronary artery without angina pectoris Status: Acute Assessment and Plan: Patient reports remote history of CABG 2007 at [place]. Will obtain records as available. Details unknown at this time. Continue aggressive medical therapy aspirin 81 mg daily, clopidogrel 75 mg daily, atorvastatin 80 mg at bedtime. repeat 12 lead ECG in a.m.. Continue telemetry. DVT prophylaxis - atorvastatin held secondary to elevated CK level 859 at a concern for patient's presenting complaint of weakness. Recheck CK level in a.m.. - PT OT (3) Ischemic cardiomyopathy: Code(s): I25.5 - Ischemic cardiomyopathy Status: Acute Assessment and Plan: patient well-compensated but EF 45-50% by echocardiogram whereas prior echo 2018 per records EF 60%. no report of recent ischemic evaluation. Although patient does not report ischemic symptoms further workup appropriate period optimization medical management as appropriate to include at minimum MONET-inhibitor therapy, resumption of Farxiga when able. Continue antiplatelet therapy with aspirin and clopidogrelas well as atorvastatin 80 mg bedtime. Anticipate outpatient ischemic workup when clinically appropriate given new LV dysfunction by echocardiogram. patient is well compensated and not in decompensated heart rate this time. (4) Carotid arterial disease: Qualifiers: Carotid artery disease type: occlusion Laterality: right Qualified Code(s): I65.21 - Occlusion and stenosis of right carotid artery Code(s): I77.9 - Disorder of arteries and arterioles, unspecified Status: Acute Assessment and Plan: Chronic total occlusion of right internal carotid artery, mild stenosis of the left by CTA neck. MRI negative for acute CVA although patient has history of old strokes. Aggressive atherosclerotic risk reduction, medical management. BP control, avoid significant hypotension. Resume atorvastatin 80 mg at bedtime when able, continued aspirin 81 mg daily and clopidogrel 75 mg daily to reduce risk for thrombotic emboli. Monitor for bleeding. Follow-up with neurology and or vascular surgery as outpatient. (5) Hypertension: Qualifiers: Hypertension type: secondary to endocrine disorders Qualified Code(s): I15.2 - Hypertension secondary to endocrine disorders Code(s): I10 - Essential (primary) hypertension Status: Acute Assess
[2023-05-17] MEDS: lisinopriL 5 MG TABLET PO (20:09)
[2023-05-17 21:09] LABS: Glucose Point of Care 310 mg/dl (65-105)
[2023-05-18] VITALS (10 sets, daily range): BP systolic 123–149; BP diastolic 56–86; PULSE 52–90; RESP 16–18; TEMP 36.4–37; O2SAT 95–100
[2023-05-18 06:25] LABS: Hematocrit 44.2 % (42.0-52.0); Hemoglobin 14.4 g/dL (14.0-18.0); Immature Platelet Fraction Pct 4.6 % (0.9-11.2); Mean Corpuscular HGB Conc 32.6 g/dl (32-36); Mean Corpuscular Volume 92.1 fl (80-100); Mean Platelet Volume 10.3 fl (7.4-10.4); Platelet Count Result 133 k/mm3 (150-375); Red Cell Distribution Width 12.5 % (11.5-14.5); White Blood Count 7.1 K/mm3 (4.5-10.0)
[2023-05-18 06:39] LABS: Anion Gap 3 mmol/L (8-16); Blood Urea Nitrogen 21 mg/dL (9-20); Carbon Dioxide 29 mmol/L (22-30); Chloride 103 mmol/L (98-107); Creatine Kinase 288 U/L (55-170); Estimated CRCL calculation 56 ml/min; Estimated Glomerular Filt Rate > 60; Glucose 218 mg/dL (65-110); Potassium 4.2 mmol/L (3.4-5.0); Sodium 135 mmol/L (137-145)
--- NOTE | 2023-05-18 08:00 | ECG_ITS ---
Measurements Intervals [place] Rate: 58 P: [place]: 0 QRS: -23 QRSD: 134 T: 60 QT: 433 QTc: 426 Interpretive Statements SINUS RHYTHM WITH 2ND DEGREE AV BLOCK, MOBITZ TYPE I ([place]) INTRAVENTRICULAR CONDUCTION DELAY ANTEROLATERAL INFARCT, AGE INDETERMINATE INFERIOR INFARCT, AGE INDETERMINATE BORDERLINE ST-T WAVE ABNORMALITY- HIGH LATERAL LEADS BASELINE ARTIFACT- I, II, III, AVR, AVL, AVF ABNORMAL ECG COMPARED TO ECG 05/15/2023 09:24:39 SECOND DEGREE AV BLOCK, TYPE I NOW PRESENT Electronically Signed On 05-18-2023 16:42:13 CDT by Kal Rocha D.O.
[2023-05-18 08:07] LABS: Glucose Point of Care 207 mg/dl (65-105)
[2023-05-18] MEDS: ASPIRIN 81 MG ENTERIC TABLET PO (08:52)
[2023-05-18] MEDS: CLOPIDOGREL BISULFATE 75 MG TABLET PO (08:52)
[2023-05-18] MEDS: INSULIN ASPART (*BKC) 100 UNITS/ML SUB-Q ×3 (08:52→17:27)
[2023-05-18 12:10] LABS: Glucose Point of Care 322 mg/dl (65-105)
--- NOTE | 2023-05-18 12:36 | PM.IMPN ---
Progress Note: A&P Assessment and Plan (1) Generalized weakness: Code(s): R53.1 - Weakness Status: Acute (2) Hypoglycemia: Code(s): E16.2 - Hypoglycemia, unspecified Status: Acute (3) Cerebrovascular accident: Code(s): I63.9 - Cerebral infarction, unspecified Status: Acute (4) Type 2 diabetes mellitus: Qualifiers: Diabetes mellitus watermelon inspector insulin use: with watermelon inspector use Diabetes mellitus complication status: with circulatory complication Code(s): E11.9 - Type 2 diabetes mellitus without complications Status: Acute (5) Thrombocytopenia: Code(s): D69.6 - Thrombocytopenia, unspecified Status: Acute (6) Hypertension: Qualifiers: Hypertension type: secondary to endocrine disorders Qualified Code(s): I15.2 - Hypertension secondary to endocrine disorders Code(s): I10 - Essential (primary) hypertension Status: Acute (7) Coronary artery disease: Qualifiers: Coronary Disease-Associated Artery/Lesion type: [place] artery [place] vs. transplanted heart: [place] heart Associated angina: without angina Qualified Code(s): I25.10 - Atherosclerotic heart disease of [place] coronary artery without angina pectoris Code(s): I25.10 - Atherosclerotic heart disease of [place] coronary artery without angina pectoris Status: Acute (8) Carotid arterial disease: Qualifiers: Carotid artery disease type: occlusion Laterality: right Qualified Code(s): I65.21 - Occlusion and stenosis of right carotid artery Code(s): I77.9 - Disorder of arteries and arterioles, unspecified Status: Acute (9) Acute CVA (cerebrovascular accident): Code(s): I63.9 - Cerebral infarction, unspecified Status: Acute (10) Bradycardia: Code(s): R00.1 - Bradycardia, unspecified Status: Acute Plan General weakness Multiple factors, overt CVA and hypoglycemia Hypoglycemia Start insulin sliding scale, hold oral medications for diabetes Hypoglycemia protocol is initiated Currently hypoglycemia is corrected Patient has difficulty with use and with hand feeding himself, and also has unstable gait, per PT OT evaluation, patient will benefit from rehab placement Right internal carotid stenosis Neurologist saw examined the patient, continue aspirin Plavix p.o. Discuss case with Dr. Dodd, she does not consider patient needs surgical intervention Management per neurologist recommendation old CVA Patient is on aspirin and Plavix Neuro check fall precaution Neurologist also recommended to continue aspirin 81 mg daily p.o., Plavix 75 mg daily p.o., Bradycardia Patient was monitors bradycardia 28 in the night Unclear etiology S Patient is not on beta-nida or calcium channel nida Consult computer education professor, and appreciate their recommendation, patient has type 2 av block Mobitz 1 and no need of pacemaker Patient is awaiting for placement to rehab Subjective Date/time seen: 05/18/23 12:36 Interval history: I saw on exam patient today, patient still has general weakness, and also has trouble to use right hand to feed himself. Per PT OT evaluation, patient will benefit from rehab and discharge. Patient is no new issue even over the night Exam Narrative: GENERAL: Pleasant, in no acute distress. Well-nourished. - EYES: EOMI. Anicteric. - HENT: Moist mucous membranes. - LUNGS: Clear to auscultation bilaterally, no wheezing, rhonchi, or rales. - CARDIOVASCULAR: Regular rate and rhythm. No murmur. No JVD. - ABDOMEN: Soft, non-tender and non-distended. No palpable masses. - EXTREMITIES: No edema. Peripheral pulses 2+. Non-tender. - NEUROLOGIC: left hemiparesis and left hypoesthesia with hyperreflexia and upgoing left plantar response. . CN II-XII grossly intact. - PSYCHIATRIC: Awake, Alert and oriented x 3. Appropriate mood and affect. - SKIN: No rashes or lesions. Warm. - LYMPH: No cervi
--- NOTE | 2023-05-18 13:55 | PM.PNCARD ---
Progress Note: A&P Assessment and Plan (1) Second degree AV block, Mobitz type I: Code(s): I44.1 - Atrioventricular block, second degree Status: Acute Assessment and Plan: Asymptomatic second-degree AV block Mobitz type 1 on telemetry noted predominantly while patient is sleeping raising clinical concern for underlying obstructive sleep apneas contribution. ApneaLink was fairly borderline, suggesting mild GEORGE, may not be contributing much. No prolonged pauses or high-grade AV blocks thus far. Transient 2:1 AV block while asleep with Mobitz type 1 noted elsewhere. --Avoid AV [place] blocking agents to avoid worsening or potentially symptomatic bradycardia or higher grade AV block. --Patient has evidence for conduction system disease with underlying first-degree AV block and QRS duration of 134 milliseconds with evidence of prior anterior and inferior infarct. there is no indication for pacemaker implantation at this time. However, he may have progressive conduction system disease as he ages and will need regular follow-up. --OPT 30 day monitor and office FU (2) Coronary artery disease: Qualifiers: Associated angina: without angina Coronary Disease-Associated Artery/Lesion type: [place] artery [place] vs. transplanted heart: eagle heart Qualified Code(s): I25.10 - Atherosclerotic heart disease of [place] coronary artery without angina pectoris Code(s): I25.10 - Atherosclerotic heart disease of [place] coronary artery without angina pectoris Status: Acute Assessment and Plan: Patient reports remote history of CABG 2007 at [place]. Appears to have an old IMI. Does not have a current contact acid plant operator. --Continue aggressive medical therapy for secondary prevention, with aspirin 81 mg daily, clopidogrel 75 mg daily, atorvastatin 80 mg at bedtime (on discharge). --atorvastatin held secondary to elevated CK level 859 at a concern for patient's presenting complaint of weakness. CPK today was 288, improving in. Probably had a degree of rhabdomyolysis. --resume atorvastatin on discharge (3) Ischemic cardiomyopathy: Code(s): I25.5 - Ischemic cardiomyopathy Status: Acute Assessment and Plan: patient well-compensated but EF 45-50% by echocardiogram. Appears to have an old inferior NM. --Continue medical therapy with aspirin and clopidogrel, lisinopril, as well as atorvastatin 80 mg bedtime. --Anticipate outpatient ischemic workup when clinically appropriate given LV dysfunction by echocardiogram. Patient is well compensated without a diuretic. (4) Hypertension: Qualifiers: Hypertension type: secondary to endocrine disorders Qualified Code(s): I15.2 - Hypertension secondary to endocrine disorders Code(s): I10 - Essential (primary) hypertension Status: Acute Assessment and Plan: BP reasonably controlled at this time. --continue lisinopril, try to titrate to 10 mg daily for blood pressure and LV dysfunction. (5) History of CVA (cerebrovascular accident): Code(s): Z86.73 - Personal history of transient ischemic attack (TIA), and cerebral infarction without residual deficits Status: Acute Assessment and Plan: History of old CVA by CT and MRI of brain without acute events. Severe carotid arterial disease with occlusion of the right internal carotid artery. --Continue antiplatelet therapy with aspirin, clopidogrel and atorvastatin when able to resume, for risk reduction. (6) Hypoglycemia: Code(s): E16.2 - Hypoglycemia, unspecified Status: Acute Assessment and Plan: Admitted with weakness, likely due to hypoglycemia. --Diabetes medications adjusted by hospitalist. --Resume Farxiga? (7) Hand numbness: Code(s): R20.0 - Anesthesia of skin Status: Acute Assessment and Plan: Complains of bilateral hand numbness, right side more acute. CT did not suggest any acute strokes. Etiology un
[2023-05-18 17:15] LABS: Glucose Point of Care 231 mg/dl (65-105)
[2023-05-18 21:01] LABS: Glucose Point of Care 338 mg/dl (65-105)
[2023-05-18] MEDS: lisinopriL 5 MG TABLET PO (21:35)
[2023-05-19] VITALS (10 sets, daily range): BP systolic 134–149; BP diastolic 65–82; PULSE 45–85; RESP 18; TEMP 36.4–37.1; O2SAT 97–99
--- NOTE | 2023-05-19 06:02 | ECG_ITS ---
Measurements Intervals [place] Rate: 63 P: SC: 0 QRS: -18 QRSD: 134 T: 92 QT: 438 QTc: 452 Interpretive Statements SINUS RHYTHM WITH SECOND DEGREE AV BLOCK, TYPE I INTRAVENTRICULAR CONDUCTION DELAY EXTENSIVE ANTERIOR INFARCT, AGE INDETERMINATE INFERIOR INFARCT, AGE INDETERMINATE BORDERLINE ST-T WAVE ABNORMALITY- HIGH LATERAL LEADS BASELINE ARTIFACT- I, III, AVR, AVL, AVF ABNORMAL ECG COMPARED TO ECG 05/18/2023 13:05:22 NO SIGNIFICANT CHANGES Electronically Signed On 05-19-2023 7:40:02 CDT by Kal Rocha D.O.
--- NOTE | 2023-05-19 06:30 | PC.NURSE ---
Dr Pratt notified of possible rhythm change to 3rd degree heart block. EKG was taken which reads 2nd degree heart block type 1. Provider notified of EKG report.
[2023-05-19 08:14] LABS: Glucose Point of Care 221 mg/dl (65-105)
[2023-05-19] MEDS: CLOPIDOGREL BISULFATE 75 MG TABLET PO (08:34)
[2023-05-19] MEDS: ASPIRIN 81 MG ENTERIC TABLET PO (08:34)
[2023-05-19] MEDS: INSULIN ASPART (*BKC) 100 UNITS/ML SUB-Q ×3 (08:34→17:31)
--- NOTE | 2023-05-19 10:37 | PM.IMPN ---
Progress Note: A&P Assessment and Plan (1) Generalized weakness: Code(s): R53.1 - Weakness Status: Acute (2) Hypoglycemia: Code(s): E16.2 - Hypoglycemia, unspecified Status: Acute (3) Cerebrovascular accident: Code(s): I63.9 - Cerebral infarction, unspecified Status: Acute (4) Type 2 diabetes mellitus: Qualifiers: Diabetes mellitus complication status: with circulatory complication Diabetes mellitus termite control representative insulin use: with termite control representative use Code(s): E11.9 - Type 2 diabetes mellitus without complications Status: Acute (5) Thrombocytopenia: Code(s): D69.6 - Thrombocytopenia, unspecified Status: Acute (6) Hypertension: Qualifiers: Hypertension type: secondary to endocrine disorders Qualified Code(s): I15.2 - Hypertension secondary to endocrine disorders Code(s): I10 - Essential (primary) hypertension Status: Acute (7) Coronary artery disease: Qualifiers: Associated angina: without angina Coronary Disease-Associated Artery/Lesion type: [place] artery [place] vs. transplanted heart: [place] heart Qualified Code(s): I25.10 - Atherosclerotic heart disease of [place] coronary artery without angina pectoris Code(s): I25.10 - Atherosclerotic heart disease of [place] coronary artery without angina pectoris Status: Acute (8) Carotid arterial disease: Qualifiers: Carotid artery disease type: occlusion Laterality: right Qualified Code(s): I65.21 - Occlusion and stenosis of right carotid artery Code(s): I77.9 - Disorder of arteries and arterioles, unspecified Status: Acute (9) Acute CVA (cerebrovascular accident): Code(s): I63.9 - Cerebral infarction, unspecified Status: Acute (10) Bradycardia: Code(s): R00.1 - Bradycardia, unspecified Status: Acute Plan General weakness Multiple factors, overt CVA and hypoglycemia Hypoglycemia Start insulin sliding scale, hold oral medications for diabetes Hypoglycemia protocol is initiated Currently hypoglycemia is corrected Patient has difficulty with use and with hand feeding himself, and also has unstable gait, per PT OT evaluation, patient will benefit from rehab placement Right internal carotid stenosis Neurologist saw examined the patient, continue aspirin Plavix p.o. Discuss case with Dr. Dodd, she does not consider patient needs surgical intervention Management per neurologist recommendation old CVA Patient is on aspirin and Plavix Neuro check fall precaution Neurologist also recommended to continue aspirin 81 mg daily p.o., Plavix 75 mg daily p.o., Bradycardia Patient was monitors bradycardia 28 in the night Unclear etiology S Patient is not on beta-nida or calcium channel nida Consult sand shoveler, and appreciate their recommendation, patient has type 2 av block Mobitz 1 and no need of pacemaker Patient is awaiting for placement to rehab Subjective Date/time seen: 05/19/23 10:37 Interval history: I saw on exam patient today, patient has no new issue events overnight. Patient still has general weakness, and also has trouble to use right hand to feed himself.? Patient is awaiting for placement to rehab Exam Narrative: GENERAL: Pleasant, in no acute distress. Well-nourished. - EYES: EOMI. Anicteric. - HENT: Moist mucous membranes. - LUNGS: Clear to auscultation bilaterally, no wheezing, rhonchi, or rales. - CARDIOVASCULAR: Regular rate and rhythm. No murmur. No JVD. - ABDOMEN: Soft, non-tender and non-distended. No palpable masses. - EXTREMITIES: No edema. Peripheral pulses 2+. Non-tender. Has difficulty to coordinate right arm to feed himself - NEUROLOGIC: left hemiparesis and left hypoesthesia with hyperreflexia and upgoing left plantar response. . CN II-XII grossly intact. - PSYCHIATRIC: Awake, Alert and oriented x 3. Appropriate mood and affect. - SKIN: No rashes or lesi
[2023-05-19] MEDS: GABAPENTIN 400 MG CAPSULE PO ×2 (11:54→20:04)
[2023-05-19 12:16] LABS: Glucose Point of Care 211 mg/dl (65-105)
--- NOTE | 2023-05-19 15:45 | WPDNEUROPN ---
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 On today's visit patient was concerned about the complaints of numbness in the right hand which he did not have before and was explained that he will need the EMG nerve conduction study as an outpatient to rule out the possibility of the carpal tunnel syndrome versus ulnar neuropathy which he is most likely prone to but the MRI does not explain his symptoms otherwise. Also patient being monitored for bradycardia which could be additional risk factor. Patient has been seen by the autoc[employer] with diagnosis of a symptomatic second-degree AV block Mobitz type 1 with underlying first-degree AV block and QRS prolongation and previous anterior and inferior infarct but no indication for the pacemaker at this stage though he will require a follow-up an outpatient monitoring for 30 days Objective Data Vital Signs Vital Signs: Vital Signs - 24 hr 05/18/23 16:00 05/18/23 20:01 05/18/23 20:18 Temperature 37.0 C Pulse Rate 56 L 52 L 81 Respiratory Rate 16 Blood Pressure 137/86 Pulse Oximetry 98 Oxygen Delivery 05/19/23 04:25 05/19/23 00:00 05/19/23 04:00 Temperature 37.1 C Pulse Rate 85 73 56 L Respiratory Rate 18 Blood Pressure 148/82 H Pulse Oximetry 97 Oxygen Delivery 05/19/23 08:30 05/19/23 14:00 05/19/23 08:00 Temperature 36.4 C Pulse Rate 85 72 71 Respiratory Rate 18 18 Blood Pressure 134/65 Pulse Oximetry 97 99 Oxygen Delivery Room Air 05/19/23 12:00 Temperature Pulse Rate 45 L Respiratory Rate Blood Pressure Pulse Oximetry Oxygen Delivery Intake/Output Intake/Output: Intake & Output 05/16/23 05/17/23 05/18/23 05/19/23 23:59 23:59 23:59 23:59 Intake Total 2340 1790 1690 830 Output Total 400 1300 1150 700 Balance 1940 490 540 130 Meds/Results Medications: Active Medications Generic Name Dose Route Start Last Admin Trade Name Oj PRN Reason Stop Dose Admin Aspirin 81 mg 05/16/23 09:00 05/19/23 08:34 Aspirin 81 Mg Enteric Tablet PO 81 mg QAM SARAH BETH Administration Clopidogrel Bisulfate 75 mg 05/16/23 12:30 05/19/23 08:34 Clopidogrel Bisulfate 75 Mg Tablet PO 75 mg QAM SARAH BETH Administration Dextrose 12.5 gm 05/15/23 13:26 Dextrose 50% 25 Gm/50 Ml Syringe IV PUSH PRN PRN Hypoglycemia Protocol Gabapentin 400 mg 05/15/23 13:27 05/19/23 11:54 Gabapentin 400 Mg Capsule PO 400 mg HS PRN Administration nerve pain Glucagon 1 mg 05/15/23 13:26 Glucagon For Inj 1 Mg Vial IM PRN PRN Hypoglycemia Protocol Glucose 15 gm 05/15/23 13:26 Glucose Oral Gel 15 Gm Of Glucse In 37.5 Gm Tube PO PRN PRN Hypoglycemia Protocol Dextrose 1,000 mls @ 100 mls/hr 05/15/23 13:26 Dextrose 5% 1,000 Ml IVPB PRN PRN Hypoglycemia Protocol Insulin Aspart 2 - 5 units 05/16/23 17:00 05/19/23 12:34 Insulin Aspart (*Bkc) 100 Units/Ml SUB-Q 2 units TIDWM SARAH BETH Administration Protocol Lisinopril 5 mg 05/15/23 21:00 05/18/23 21:35 Lisinopril 5 Mg Tablet PO 5 mg HS SARAH BETH Administration Radiology Results: ITS Impressions Head CT 05/15/23 10:06 IMPRESSION: 1. Encephalomalacia consistent with moderate-sized chronic infarct involving the right frontal lobe, basal ganglia and insula. Brain MRI 05/15/23 14:04 IMPRESSION: 1. Old infarcts involving the left
[2023-05-19 16:59] LABS: Glucose Point of Care 277 mg/dl (65-105)
[2023-05-19] MEDS: lisinopriL 5 MG TABLET PO (20:04)
[2023-05-19 22:07] LABS: Glucose Point of Care 217 mg/dl (65-105)
[2023-05-20] VITALS (10 sets, daily range): BP systolic 97–129; BP diastolic 54–61; PULSE 48–83; RESP 15–18; TEMP 36.2–37; O2SAT 95–96
[2023-05-20 08:15] LABS: Glucose Point of Care 146 mg/dl (65-105)
[2023-05-20] MEDS: CLOPIDOGREL BISULFATE 75 MG TABLET PO (09:54)
[2023-05-20] MEDS: ASPIRIN 81 MG ENTERIC TABLET PO (09:54)
[2023-05-20 12:05] LABS: Glucose Point of Care 181 mg/dl (65-105)
--- NOTE | 2023-05-20 12:28 | WPDNEUROPN ---
Subjective Date/time seen: 05/20/23 12:28 Interval history: remains awake alert follows all the instruction is still complaining of the numbness of the right hand for which obviously will need the EMG and nerve conduction study and he has been advised accordingly will be done as an outpatient even otherwise the machine is down right now Objective Data Vital Signs Vital Signs: Vital Signs - 24 hr 05/19/23 14:00 05/19/23 16:00 05/19/23 20:34 Temperature 36.4 C 37.2 C Pulse Rate 72 67 73 Respiratory Rate 18 18 Blood Pressure 134/65 152/61 H Pulse Oximetry 99 97 Oxygen Delivery 05/19/23 20:00 05/19/23 21:01 05/19/23 20:00 Temperature 37.0 C Pulse Rate 82 71 71 Respiratory Rate 18 18 Blood Pressure 149/69 H Pulse Oximetry 98 98 Oxygen Delivery Room Air 05/20/23 00:00 05/20/23 04:00 05/20/23 04:35 Temperature 37.0 C Pulse Rate 72 83 62 Respiratory Rate 18 Blood Pressure 129/61 Pulse Oximetry 95 Oxygen Delivery 05/20/23 09:55 Temperature Pulse Rate 62 Respiratory Rate 18 Blood Pressure Pulse Oximetry 95 Oxygen Delivery Room Air Intake/Output Intake/Output: Intake & Output 05/17/23 05/18/23 05/19/23 05/20/23 23:59 23:59 23:59 23:59 Intake Total 1790 1690 1570 610 Output Total 1300 1150 1150 1200 Balance 490 540 420 -590 Meds/Results Medications: Active Medications Generic Name Dose Route Start Last Admin Trade Name Freq PRN Reason Stop Dose Admin Aspirin 81 mg 05/16/23 09:00 05/20/23 09:54 Aspirin 81 Mg Enteric Tablet PO 81 mg QAM SARAH BETH Administration Clopidogrel Bisulfate 75 mg 05/16/23 12:30 05/20/23 09:54 Clopidogrel Bisulfate 75 Mg Tablet PO 75 mg QAM SARAH BETH Administration Dextrose 12.5 gm 05/15/23 13:26 Dextrose 50% 25 Gm/50 Ml Syringe IV PUSH PRN PRN Hypoglycemia Protocol Gabapentin 300 mg 05/20/23 13:00 Gabapentin 300 Mg Capsule PO TID SARAH BETH Glucagon 1 mg 05/15/23 13:26 Glucagon For Inj 1 Mg Vial IM PRN PRN Hypoglycemia Protocol Glucose 15 gm 05/15/23 13:26 Glucose Oral Gel 15 Gm Of Glucse In 37.5 Gm Tube PO PRN PRN Hypoglycemia Protocol Dextrose 1,000 mls @ 100 mls/hr 05/15/23 13:26 Dextrose 5% 1,000 Ml IVPB PRN PRN Hypoglycemia Protocol Insulin Aspart 2 - 5 units 05/16/23 17:00 05/20/23 09:50 Insulin Aspart (*Bkc) 100 Units/Ml SUB-Q Not Given TIDWM SARAH BETH Protocol Lisinopril 5 mg 05/15/23 21:00 05/19/23 20:04 Lisinopril 5 Mg Tablet PO 5 mg HS SARAH BETH Administration Radiology Results: ITS Impressions Head CT 05/15/23 10:06 IMPRESSION: 1. Encephalomalacia consistent with moderate-sized chronic infarct involving the right frontal lobe, basal ganglia and insula. Brain MRI 05/15/23 14:04 IMPRESSION: 1. Old infarcts involving the left cerebellum, right basal ganglia, right insula, and right frontoparietal region. Carotid Doppler Study 05/15/23 15:35 IMPRESSION: 1. 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 2. <50% stenosis in the left internal carotid artery. Head/Neck CTA 05/16/23 13:14 IMPRESSION: 1. Old infarcts involving the left cerebellum, right basal ganglia, right insula, and right frontoparietal region. 2. 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 3. 17% stenosis of the proximal left internal carotid artery relative to normal distal artery lumen diameter (NASCET criteria). Labs Labs: Laboratory Results - last 24 hr 05/19/23 05/19/23 05/20/23 16:57 21:07 08:11 POC Capillary Glucose 277 H 217 H 146 H 05/20/23 11:53 POC Capillary Glucose 181 H Amg [facility]up [facility]illing [facility] Follow-up Hospital Follow-up: [id number] [facility] [place]
[2023-05-20] MEDS: GABAPENTIN 300 MG CAPSULE PO ×2 (13:04→17:39)
--- NOTE | 2023-05-20 14:15 | PM.IMPN ---
Progress Note: A&P Assessment and Plan (1) Generalized weakness: Code(s): R53.1 - Weakness Status: Acute (2) Hypoglycemia: Code(s): E16.2 - Hypoglycemia, unspecified Status: Acute (3) Cerebrovascular accident: Code(s): I63.9 - Cerebral infarction, unspecified Status: Acute (4) Type 2 diabetes mellitus: Qualifiers: Diabetes mellitus fdc insulin use: with petroleum terminal plant operator use Diabetes mellitus complication status: with circulatory complication Code(s): E11.9 - Type 2 diabetes mellitus without complications Status: Acute (5) Thrombocytopenia: Code(s): D69.6 - Thrombocytopenia, unspecified Status: Acute (6) Hypertension: Qualifiers: Hypertension type: secondary to endocrine disorders Qualified Code(s): I15.2 - Hypertension secondary to endocrine disorders Code(s): I10 - Essential (primary) hypertension Status: Acute (7) Coronary artery disease: Qualifiers: Coronary Disease-Associated Artery/Lesion type: [place] artery [place] vs. transplanted heart: [place] heart Associated angina: without angina Qualified Code(s): I25.10 - Atherosclerotic heart disease of [place] coronary artery without angina pectoris Code(s): I25.10 - Atherosclerotic heart disease of [place] coronary artery without angina pectoris Status: Acute (8) Carotid arterial disease: Qualifiers: Carotid artery disease type: occlusion Laterality: right Qualified Code(s): I65.21 - Occlusion and stenosis of right carotid artery Code(s): I77.9 - Disorder of arteries and arterioles, unspecified Status: Acute (9) Acute CVA (cerebrovascular accident): Code(s): I63.9 - Cerebral infarction, unspecified Status: Acute (10) Bradycardia: Code(s): R00.1 - Bradycardia, unspecified Status: Acute Plan General weakness Multiple factors, overt CVA and hypoglycemia Hypoglycemia Start insulin sliding scale, hold oral medications for diabetes Hypoglycemia protocol is initiated Currently hypoglycemia is corrected Right hand numbness Patient has difficulty with use and with hand feeding himself, and also has unstable gait, per PT OT evaluation, patient will benefit from rehab placement Suspecting carpal tunnel syndrome. patient had history of left hand carpal tunnel syndrome, resolves under surgical treatment Neurologist recommends Right internal carotid stenosis Neurologist saw examined the patient, continue aspirin Plavix p.o. Discuss case with Dr. Dodd, she does not consider patient needs surgical intervention Management per neurologist recommendation old CVA Patient is on aspirin and Plavix Neuro check fall precaution Neurologist also recommended to continue aspirin 81 mg daily p.o., Plavix 75 mg daily p.o., Bradycardia Patient was monitors bradycardia 28 in the night Unclear etiology S Patient is not on beta-nida or calcium channel nida Consult ems manager, and appreciate their recommendation, patient has type 2 av block Mobitz 1 and no need of pacemaker Patient is awaiting for placement to rehab Subjective Date/time seen: 05/20/23 14:15 Interval history: I saw examination today, patient still has numbness of right hand, no no focal deficit, patient denies palpitation, dizziness, chest pain, belly pain, nausea vomiting diarrhea Exam Narrative: GENERAL: Pleasant, in no acute distress. Well-nourished. - EYES: EOMI. Anicteric. - HENT: Moist mucous membranes. - LUNGS: Clear to auscultation bilaterally, no wheezing, rhonchi, or rales. - CARDIOVASCULAR: Regular rate and rhythm. No murmur. No JVD. - ABDOMEN: Soft, non-tender and non-distended. No palpable masses. - EXTREMITIES: No edema. Peripheral pulses 2+. Non-tender. Has difficulty to coordinate right arm to feed himself - NEUROLOGIC: left hemiparesis and left hypoesthesia with hyperreflexia and upgoing left planta
[2023-05-20 17:23] LABS: Glucose Point of Care 210 mg/dl (65-105)
[2023-05-20] MEDS: INSULIN ASPART (*BKC) 100 UNITS/ML SUB-Q (17:36)
[2023-05-20] MEDS: lisinopriL 5 MG TABLET PO (20:16)
[2023-05-20 21:40] LABS: Glucose Point of Care 214 mg/dl (65-105)
[2023-05-21] VITALS (9 sets, daily range): BP systolic 103–127; BP diastolic 50–53; PULSE 50–86; RESP 14–16; TEMP 36.2–36.6; O2SAT 96–99
[2023-05-21 07:23] LABS: Glucose Point of Care 165 mg/dl (65-105)
[2023-05-21] MEDS: GABAPENTIN 300 MG CAPSULE PO ×3 (09:10→17:24)
[2023-05-21] MEDS: ASPIRIN 81 MG ENTERIC TABLET PO (09:10)
[2023-05-21] MEDS: CLOPIDOGREL BISULFATE 75 MG TABLET PO (09:10)
[2023-05-21 11:51] LABS: Glucose Point of Care 230 mg/dl (65-105)
[2023-05-21] MEDS: INSULIN ASPART (*BKC) 100 UNITS/ML SUB-Q (11:58)
--- NOTE | 2023-05-21 13:09 | PM.IMPN ---
Progress Note: A&P Assessment and Plan (1) Generalized weakness: Code(s): R53.1 - Weakness Status: Acute (2) Hypoglycemia: Code(s): E16.2 - Hypoglycemia, unspecified Status: Acute (3) Cerebrovascular accident: Code(s): I63.9 - Cerebral infarction, unspecified Status: Acute (4) Type 2 diabetes mellitus: Qualifiers: Diabetes mellitus senior care insulin use: with laborer marine terminal use Diabetes mellitus complication status: with circulatory complication Code(s): E11.9 - Type 2 diabetes mellitus without complications Status: Acute (5) Thrombocytopenia: Code(s): D69.6 - Thrombocytopenia, unspecified Status: Acute (6) Hypertension: Qualifiers: Hypertension type: secondary to endocrine disorders Qualified Code(s): I15.2 - Hypertension secondary to endocrine disorders Code(s): I10 - Essential (primary) hypertension Status: Acute (7) Coronary artery disease: Qualifiers: Coronary Disease-Associated Artery/Lesion type: [place] artery [place] vs. transplanted heart: [place] heart Associated angina: without angina Qualified Code(s): I25.10 - Atherosclerotic heart disease of [place] coronary artery without angina pectoris Code(s): I25.10 - Atherosclerotic heart disease of [place] coronary artery without angina pectoris Status: Acute (8) Carotid arterial disease: Qualifiers: Carotid artery disease type: occlusion Laterality: right Qualified Code(s): I65.21 - Occlusion and stenosis of right carotid artery Code(s): I77.9 - Disorder of arteries and arterioles, unspecified Status: Acute (9) Acute CVA (cerebrovascular accident): Code(s): I63.9 - Cerebral infarction, unspecified Status: Acute (10) Bradycardia: Code(s): R00.1 - Bradycardia, unspecified Status: Acute Plan General weakness Multiple factors, overt CVA Right hand numbness Patient has difficulty with use and with hand feeding himself, and also has unstable gait, per PT OT evaluation, patient will benefit from rehab placement Suspecting carpal tunnel syndrome. patient had history of left hand carpal tunnel syndrome, resolves under surgical treatment Neurologist recommends, order joint panel and xray of neck Right internal carotid stenosis Neurologist saw examined the patient, continue aspirin Plavix p.o. Discuss case with Dr. Dodd, she does not consider patient needs surgical intervention Management per neurologist recommendation old CVA Patient is on aspirin and Plavix Neuro check fall precaution Neurologist also recommended to continue aspirin 81 mg daily p.o., Plavix 75 mg daily p.o., Bradycardia Patient was monitors bradycardia 28 in the night Unclear etiology S Patient is not on beta-nida or calcium channel nida Consult warehouser, and appreciate their recommendation, patient has type 2 av block Mobitz 1 and no need of pacemaker Patient is awaiting for placement to rehab Subjective Date/time seen: 05/21/23 13:09 Interval history: I saw examination today, patient still has numbness of right hand history of old CVA on left side I will order Arthropathy panel and neck xray Pt awaiting placement continue PT here for now More exercises to the thigh Review of Systems Review of Systems: Weakness, recent numbness to R hand Exam Narrative: GENERAL: Pleasant, in no acute distress. Well-nourished. - EYES: EOMI. Anicteric. - HENT: Moist mucous membranes. - LUNGS: Clear to auscultation bilaterally, no wheezing, rhonchi, or rales. - CARDIOVASCULAR: Regular rate and rhythm. No murmur. No JVD. - ABDOMEN: Soft, non-tender and non-distended. No palpable masses. - EXTREMITIES: No edema. Peripheral pulses 2+. Non-tender. Has difficulty to coordinate right arm to feed himself - NEUROLOGIC: left hemiparesis and left hypoesthesia with hyperreflexia and upgoing left planta
[2023-05-21 14:31] LABS: CRP 4.3 mg/dL (<1.0); Rheumatoid Factor < 12.0 IU/ML (<12)
[2023-05-21 15:25] LABS: Erythrocyte Sedimentation Rate 22 mm/hr (0-20)
[2023-05-21 16:45] LABS: Glucose Point of Care 177 mg/dl (65-105)
[2023-05-21 21:08] LABS: Glucose Point of Care 246 mg/dl (65-105)
[2023-05-21] MEDS: lisinopriL 5 MG TABLET PO (21:10)
[2023-05-22] VITALS: PULSE 76
[2023-05-22 04:00] VITALS: PULSE 75
[2023-05-22 06:00] VITALS: BP 150/86; PULSE 75; RESP 14; TEMP 36.4; O2SAT 100
[2023-05-22 08:31] LABS: Glucose Point of Care 154 mg/dl (65-105)
[2023-05-22] MEDS: CLOPIDOGREL BISULFATE 75 MG TABLET PO (08:38)
[2023-05-22] MEDS: ASPIRIN 81 MG ENTERIC TABLET PO (08:38)
[2023-05-22] MEDS: GABAPENTIN 300 MG CAPSULE PO ×2 (08:38→12:58)
[2023-05-22 12:00] VITALS: PULSE 43
--- NOTE | 2023-05-22 12:15 | PM.DS ---
DS: Admitting Diagnosis Discharge Date 05/22/2023 Admitting Diagnosis Weakness. DS: Discharge Diagnosis Discharge Diagnosis (1) Generalized weakness: Code(s): R53.1 - Weakness Status: Acute (2) Hypoglycemia: Code(s): E16.2 - Hypoglycemia, unspecified Status: Acute (3) Cerebrovascular accident: Code(s): I63.9 - Cerebral infarction, unspecified Status: Acute (4) Type 2 diabetes mellitus: Qualifiers: Diabetes mellitus termite inspector insulin use: with termite inspector use Diabetes mellitus complication status: with circulatory complication Code(s): E11.9 - Type 2 diabetes mellitus without complications Status: Acute (5) Thrombocytopenia: Code(s): D69.6 - Thrombocytopenia, unspecified Status: Acute (6) Hypertension: Qualifiers: Hypertension type: secondary to endocrine disorders Qualified Code(s): I15.2 - Hypertension secondary to endocrine disorders Code(s): I10 - Essential (primary) hypertension Status: Acute (7) Coronary artery disease: Qualifiers: Coronary Disease-Associated Artery/Lesion type: [place] artery [place] vs. transplanted heart: [place] heart Associated angina: without angina Qualified Code(s): I25.10 - Atherosclerotic heart disease of [place] coronary artery without angina pectoris Code(s): I25.10 - Atherosclerotic heart disease of [place] coronary artery without angina pectoris Status: Acute (8) Carotid arterial disease: Qualifiers: Carotid artery disease type: occlusion Laterality: right Qualified Code(s): I65.21 - Occlusion and stenosis of right carotid artery Code(s): I77.9 - Disorder of arteries and arterioles, unspecified Status: Acute (9) Acute CVA (cerebrovascular accident): Code(s): I63.9 - Cerebral infarction, unspecified Status: Acute (10) Bradycardia: Code(s): R00.1 - Bradycardia, unspecified Status: Acute Plan General weakness Multiple factors, overt CVA Right hand numbness Patient has difficulty with use and with hand feeding himself, and also has unstable gait, per PT OT evaluation, patient will benefit from rehab placement Suspecting carpal tunnel syndrome. patient had history of left hand carpal tunnel syndrome, resolves under surgical treatment Neurologist recommends nerve conduction and EMB on return clinic visit, I order joint panel and xray of neck, Rheumatoid factor and AUDREY not back Right internal carotid stenosis Neurologist saw examined the patient, continue aspirin Plavix p.o. Discuss case with Dr. Dodd, she does not consider patient needs surgical intervention Management per neurologist recommendation old CVA Patient is on aspirin and Plavix pt has history of Left sided weakness from old stroke Neuro check fall precaution Neurologist also recommended to continue aspirin 81 mg daily p.o., Plavix 75 mg daily p.o., Bradycardia Unclear etiology S Patient is not on beta-nida or calcium channel nida Consult director instructional material, and appreciate their recommendation, patient has type 2 av block Mobitz 1 and no need of pacemaker Patient is awaiting for placement to rehab pt accepted in [facility] for rehab DS: Summary Hospital Course Hospital Course: 77-year-old male with history of stroke, coronary artery disease, hypertension, and type 2 diabetes mellitus who presented to the emergency department via EMS from home for evaluation of weakness. The patient provides the following history. He was feeling weak this morning and apparently had a fall and was unable to get off the floor. It is not unusual for him to fall as he has balance issues for several reasons. 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 EMS was summoned and his glucose was 42 on their arrival. He received oral glucose with improvement however he was still very weak and he was manuel
[2023-05-22 12:43] LABS: Glucose Point of Care 209 mg/dl (65-105)
[2023-05-22] MEDS: INSULIN ASPART (*BKC) 100 UNITS/ML SUB-Q (12:59)
[2023-05-22 14:30] VITALS: BP 117/57; PULSE 54; RESP 17; TEMP 36.3; O2SAT 99
--- NOTE | 2023-05-22 14:31 | PC.NURSE ---
Message left for letting her know that Santhosh was transported via ambulance to [facility].
== END 2023-05-22 14:35 | DRG 309 ==
LOC: ANHED 10:16 → ANH3MED 11:46
PROVIDERS: Hospitalist; Physician Assistant; Admitting Provider Internal Medicine; Emergency Provider Emergency Medicine; Visit Provider Family Medicine
DX: R00.1 Bradycardia, unspecified (principal); I69.354 Hemiplegia and hemiparesis following cerebral infarction affecting left non-dominant side; E11.649 Type 2 diabetes mellitus with hypoglycemia without coma; I25.10 Atherosclerotic heart disease of native coronary artery without angina pectoris; I10 Essential (primary) hypertension; I65.21 Occlusion and stenosis of right carotid artery; I44.1 Atrioventricular block, second degree; I25.5 Ischemic cardiomyopathy; D69.6 Thrombocytopenia, unspecified; E11.40 Type 2 diabetes mellitus with diabetic neuropathy, unspecified; E11.51 Type 2 diabetes mellitus with diabetic peripheral angiopathy without gangrene; E78.5 Hyperlipidemia, unspecified; R20.0 Anesthesia of skin; R53.1 Weakness; R29.6 Repeated falls; F17.290 Nicotine dependence, other tobacco product, uncomplicated; Z89.432 Acquired absence of left foot; Z95.1 Presence of aortocoronary bypass graft; Z89.411 Acquired absence of right great toe; Z89.421 Acquired absence of other right toe(s); Z79.4 Long term (current) use of insulin
CPT/HCPCS: 36415; 70450; 70496; 70498; 70553; 72040; 80048; 80053; 81001; 82550; 82948; 83036; 83735; 84443; 85025; 85027; 85055; 85652; 86038; 86140; 86430; 93005; 93306; 93880; 94762; 97110; 97112; 97161; 97166; 97530; 97535; 99285; A9270; A9577; G0378; J1815; Q9967

== ENCOUNTER 2023-07-18 16:01 | Inpatient (IN) | payer MEDICARE, SELFPAY ==
[2023-07-18] VITALS (22 sets, daily range): BP systolic 104–141; BP diastolic 53–77; PULSE 63–86; RESP 12–26; TEMP 36.1–36.7; O2SAT 96–100; BMI 23.8
--- NOTE | ~2023-07-18 | MR_ITS ---
EXAMINATION: MR lumbar spine wo con DATE: 07/19/2023 15:09 INDICATION: Bilateral lower extremity weakness. TECHNIQUE: Magnetic resonance imaging (MRI) of the lumbar spine was performed without intravenous con trast. COMPARISON: None FINDINGS: There is 5 degrees dextrocurvature of thoracolumbar spine. There are chronic bilateral L5 p ars defects. There is 9 mm anterolisthesis of L5 on S1. There is mild chronic anterior wedging of T12 and L1 vertebral bodies. There is severely decreased disc height at L5-S1 with endplate remodeling a nd 1/5 height loss of L5 vertebral body. The distal spinal cord signal intensity is normal. The conus medullaris is at T12-L1. The following disc levels are specifically discussed: L1-L2: The disc is bulging and has an annular fissure. There is moderate bilateral facet joint osteoa rthritis. There is mild bilateral neural foraminal stenosis. There is mild central canal stenosis. L2-L3: The disc is bulging. There is moderate bilateral facet joint osteoarthritis. There is mild freida ateral neural foraminal stenosis. There is mild central canal stenosis. L3-L4: The disc is bulging. There is mild bilateral facet joint osteoarthritis. There is mild bilater al neural foraminal stenosis. There is mild central canal stenosis. L4-L5: The disc is bulging. There is severe bilateral facet joint osteoarthritis. There is moderate r ight and mild left neural foraminal stenosis. There is mild central canal stenosis. L5-S1: The disc is bulging and has an annular fissure. There is mild bilateral facet joint osteoarthr itis. There is severe right and moderate left neural foraminal stenosis. There is mild central canal stenosis. IMPRESSION: 1. Chronic bilateral L5 pars defects with grade 2 anterolisthesis of L5 on S1. 2. Severe lower lumbar spondylosis. Reviewed, dictated and finalized at location A.
--- NOTE | ~2023-07-18 | XR_ITS ---
EXAMINATION: XR chest 2V DATE: 07/18/2023 17:12 INDICATION: Hypoglycemia. TECHNIQUE: Frontal and lateral views of the chest were obtained. COMPARISON: None. FINDINGS: There is mild atelectasis in lingula. There are small pleural effusions. No pneumothorax. C ardiomegaly is noted. Median sternotomy wires and mediastinal surgical clips are seen, likely from pr ior coronary artery bypass grafting. There are changes of anterior fusion procedure in cervical spine . IMPRESSION: 1. Small pleural effusions. 2. Cardiomegaly. Reviewed, dictated and finalized at location E.
--- NOTE | ~2023-07-18 | XR_ITS ---
EXAMINATION: XR fluoroscopy no charge DATE: 07/23/2023 19:45 CDT INDICATION: CERVICAL DISCECTOMY . TECHNIQUE: 3 fluoroscopic images of the cervical spine were obtained during cervical discectomy and f usion performed by the surgeon. I was not present in the operating room. Fluoroscopy exposure time wa s 6.6 seconds. Air Kerma 0.6222 mGy. DAP 0.0123 mGym2. COMPARISON: MR C-spine 07/19/2023 FINDINGS: Probes identify the disc spaces of C3-4 and C4-5, as well as the anteroinferior corner of the C5 vert ebral body. Subsequently there is ACDF hardware spanning C3-C5 with interbody bone plugs in good posi tion at C3-4 and C4-5 IMPRESSION: Fluoroscopic documentation of cervical discectomy and fusion. Please refer to the operative note for complete procedural details . Reviewed, dictated and finalized at location K. IMPRESSION: Fluoroscopic documentation of cervical discectomy and fusion. Please refer to [facility] operative note for complete procedural details .
--- NOTE | ~2023-07-18 | MR_ITS ---
EXAMINATION: MR cervical spine wo con DATE: 07/19/2023 15:01 INDICATION: Bilateral upper extremity and lower extremity weakness. TECHNIQUE: Magnetic resonance imaging (MRI) of the cervical spine was performed without intravenous c ontrast. Sequences included sagittal T2-weighted FSE, sagittal T2-weighted FS FSE, sagittal T1-weight ed FSE, axial MERGE, and axial T2-weighted FSE. COMPARISON: Cervical spine radiographs 05/22/2023 FINDINGS: There are small bilateral pleural effusions. There is 3 mm anterolisthesis of C5 on C6. The re are changes of anterior fusion procedure at C6-C7 with healed interbody bone graft and anterior pl ate and screws. There is kyphosis of lower cervical spine. There is mildly decreased disc height at C 3-C4. There is increased T2-weighted signal intensity in the spinal cord at C3-C4 and C4-C5, consiste nt with myelomalacia. The following disc levels are specifically discussed: C2-C3: There is a central protrusion. There is no uncovertebral joint osteoarthritis. There is modera te right and severe left facet joint osteoarthritis. There is mild left neural foraminal stenosis. Th ere is no central canal stenosis. C3-C4: The disc is bulging. There is severe bilateral uncovertebral joint osteoarthritis. There is se joan bilateral facet joint osteoarthritis. There is severe right and moderate left neural foraminal s tenosis. There is severe central canal stenosis with ventral and dorsal indentation of the cord. C4-C5: The disc is bulging. There is severe bilateral uncovertebral joint osteoarthritis. There is se joan bilateral facet joint osteoarthritis. There is severe right and moderate left neural foraminal s tenosis. There is severe central canal stenosis with ventral and dorsal indentation of the cord. C5-C6: The disc does not extend beyond the endplate margin. There is moderate right and mild left unc overtebral joint hypertrophy. There is mild right and severe left facet joint osteoarthritis. There i s mild bilateral neural foraminal stenosis. There is no central canal stenosis. C6-C7: There is mild bilateral uncovertebral joint hypertrophy. There is no facet joint osteoarthriti s. There is no neural foraminal stenosis. There is no central canal stenosis. C7-T1: There is a central extrusion. There is no uncovertebral joint osteoarthritis. There is severe bilateral facet joint osteoarthritis. There is mild bilateral neural foraminal stenosis. There is mil d central canal stenosis. IMPRESSION: 1. 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 2. Severe cervical spondylosis. 3. Anterior fusion procedure at C6-C7. Reviewed, dictated and finalized at location A.
[2023-07-18 16:49] LABS: Glucose Point of Care 95 mg/dl (65-105)
[2023-07-18 17:05] LABS: Basophils Percent Auto 0.3 % (0.2-1.2); Eosinophils Percent Auto 0.3 % (0-4.4); Hematocrit 33.2 % (42.0-52.0); Hemoglobin 10.5 g/dL (14.0-18.0); Immature Granulocyte Absolute 0.04 K/mm3 (0.00-0.031); Immature Granulocyte Percent A 0.5 % (0-0.5); Immature Platelet Fraction Pct 6.4 % (0.9-11.2); Lymphocytes Absolute Auto 0.43 K/mm3 (0.9-3.2); Lymphocytes Percent Auto 5.6 % (18.3-44.2); Mean Corpuscular HGB Conc 31.6 g/dl (32-36); Mean Corpuscular Hemoglobin 30.2 pg (26-34); Mean Corpuscular Volume 95.4 fl (80-100); Mean Platelet Volume 11.5 fl (7.4-10.4); Monocytes Absolute Auto 0.7 K/mm3 (0.1-0.6); Monocytes Percent Auto 8.8 % (2.6-8.5); Neutrophils Absolute Auto 6.5 K/mm3 (1.3-6.7); Neutrophils Percent Auto 84.5 % (45.5-73.1); Platelet Count Result 117 k/mm3 (150-375); Red Blood Count 3.48 M/mm3 (4.6-6.20); Red Cell Distribution Width 14.7 % (11.5-14.5); White Blood Count 7.7 K/mm3 (4.5-10.0)
[2023-07-18 17:20] LABS: Anion Gap 11 mmol/L (8-16); Blood Urea Nitrogen 46 mg/dL (9-20); Calcium 8.3 mg/dL (8.4-10.2); Carbon Dioxide 23 mmol/L (22-30); Chloride 106 mmol/L (98-107); Estimated CRCL calculation 40 ml/min; Estimated Glomerular Filt Rate 45; Glucose 96 mg/dL (65-110); Potassium 4.5 mmol/L (3.4-5.0); Sodium 140 mmol/L (137-145)
[2023-07-18 17:56] LABS: Appearance Urine Turbid (Clear); Bacteria Urine 4+ /hpf; Bilirubin Urine Negative (Negative); Blood Urine 3+ (Negative); Color Urine Yellow (Yellow); Glucose Urine UA 2+ mg/dL (Negative); Ketones Urine Negative (Negative); Leukocyte Esterase Ur 3+ LEU/UL (Negative); Nitrate Urine Positive (Negative); Non Pathogenic Casts 0-2; Protein Urine 2+ mg/dL (Negative); RBC Urine 21-50 /hpf (0-2); Specific Grav Ur 1.016 (1.001-1.035); Squamous Epithelial Cell Urine None seen /hpf (Few); Urobilinogen Urine 0.2 mg/dL (<2.0); WBC Urine >100 /hpf; pH Urine 5.5 (5.0-9.0)
[2023-07-18 18:00] LABS: Add Urine Microscopic? YES
--- NOTE | 2023-07-18 18:07 | ED.GENADULT ---
HPI - General Adult General Chief complaint: Recheck/Abnormal Lab/Rx Stated complaint: hypoglycemic Time Seen by Provider: 07/18/23 17:11 Source: patient Mode of arrival: ambulatory Limitations: no limitations History of Present Illness HPI narrative: This is a 77-year-old male with PMH of recent CVA, CAD, HTN, T2DM who is presenting to the ED via EMS with chief complaint of hypoglycemia. Apparently per EMS family states that the patient was acting sick and thought he maybe had a UTI. Patient was recently discharged from rehab center after having a stroke in May. Per EMS his initial blood glucose at home when they arrived was 34 and after given D10 he had repeat glucose of 108. Patient arrives alert and oriented. He reports pain in the buttocks region and is concerned for a bedsore. Denies urinary symptoms. Denies fevers, chills, chest pain, abdominal pain, cough, problems with bowel movements. Denies any GI bleeding symptoms. He denies any changes to his medications and states he has been taking his glimepiride, Farxiga as prescribed. He is able to tell me about all of the medications he takes. Past surgical history of bilateral foot amputation. Per chart review patient is on dual antiplatelet therapy with aspirin and Plavix. Related Data Home Medications Medication Instructions Recorded Confirmed atorvastatin 80 mg tablet 80 mg PO HS 05/15/23 07/18/23 dapagliflozin propanediol 5 mg 20 mg PO HS 05/15/23 07/18/23 tablet (Farxiga) gabapentin 400 mg capsule 400 mg PO HS PRN nerve pain 05/15/23 07/18/23 glimepiride 4 mg tablet 4 mg PO HS 05/15/23 07/18/23 lisinopril 5 mg tablet 5 mg PO HS 05/15/23 07/18/23 aspirin 325 mg tablet 325 mg PO DAILY 07/18/23 07/18/23 diphenhydramine 25 1 tablet PO HS 07/18/23 07/18/23 mg-acetaminophen 500 mg tablet (Tylenol PM Extra Strength) tizanidine 2 mg tablet 2 mg PO HS PRN muscle spasms 07/18/23 07/18/23 Allergies Allergy/AdvReac Type Severity Reaction Status Date / Time amoxicillin [From Augmentin] AdvReac Vomiting Verified 07/18/23 16:10 clavulanic acid AdvReac Vomiting Verified 07/18/23 16:10 [From Augmentin] oxycodone AdvReac Other Verified 07/18/23 16:10 Review of Systems Review of Systems: All systems as dictated in [facility] Past Medical History Medical History (Updated 07/19/23 @ 00:34 by Indy Lorenzo MD) Cerebrovascular accident Coronary artery disease Hypertension Nicotine dependence Shingles Type 2 diabetes mellitus Surgical History Surgical History (Updated 07/18/23 @ 22:28 by Indy Lorenzo MD) History of amputation of toe (2017) History of cardiac catheterization History of coronary artery bypass graft (05/11/08) Family History Family History Other Cancer Diabetes mellitus Heart disease Social History Social History Social History: Surrogate medical decision maker: Domonique Adler, spouse. Code status: Full code. Smoking status: Never smoker Tobacco type: cigars Alcohol intake: never Drinks per week: 7 Substance use: never Lack of Transportation: No Lack of Food: Never True Current Housing: I Have Housing Concerned About Future Housing: No Difficulty Paying Gas/Electric Bills: No Difficulty Paying for Meds: No Currently Unemployed: No Education: Decline to Answer Difficulty w/ Childcare or Family Care: No Additional living arrangements comments: Lives with spouse in [place]. Additional occupation/education comments: Retired. Spiritual care concerns: No Exam Narrative: GENERAL: Well-appearing, well-nourished, and in no acute distress. HEAD: Normocephalic, atraumatic. EYES: PERRLA and EOMI. ENT: Nares clear, no rhinorrhea or epistaxis. Mucous membranes moist. Oropharynx without tonsillar hypertrophy exudate or other lesions. NECK: Supple. No adenopath
[2023-07-18 18:49] LABS: Glucose Point of Care 48 mg/dl (65-105)
[2023-07-18] MEDS: DEXTROSE 50% 25 GM/50 ML SYRINGE IV PUSH (18:51)
--- NOTE | 2023-07-18 18:51 | PCCCNOTE ---
Call received from pt's spouse requesting assistance with help at home. Pt was in at least 2 different nursing facilities and did not like any of them. She would like to be able to bring him home but will need more help than HH can provide. She is not here now. I left the private duty list and DME list with pt. She is aware and if those are lost she will ask the CC on Saturday for another copy. Following
--- NOTE | 2023-07-18 19:03 | PC.NURSE ---
Patient report given to LOBO Goodman. All questions answered and care of patient transferred.
[2023-07-18 19:39] LABS: Glucose Point of Care 107 mg/dl (65-105)
[2023-07-18 19:54] LABS: Glucose Point of Care 105 mg/dl (65-105)
[2023-07-18] MEDS: ACETAMINOPHEN 500 MG TABLET 1000 MG PO (20:20)
--- NOTE | 2023-07-18 21:10 | PM.IMHP ---
H&P: HPI History of Present Illness Date/Time: 07/18/23 21:10 Chief Complaint: AMS Narrative: This is a 77 yo male with PMHx significant for T2DM, HTN, R transmetatarzal amputation, L foot amputation, Tobacco dependence, PVD, CAD.Patient was brought for evaluation to ED due to lethargy for the last 2 days, poor per oral intake. History has been taken mainly from ED medical records, patient is obtunded and delirious.According to ED patient was brought via EMS at home he had a blood sugar in the 30's, and given D50. Upon arrival to ED patient another episode of hypoglycemia. Preliminary work up was significant for urine with numerous WBC's present. EXAMINATION: XR chest 2V DATE: 07/18/2023 17:12 INDICATION: Hypoglycemia. TECHNIQUE: Frontal and lateral views of the chest were obtained. COMPARISON: None. FINDINGS: There is mild atelectasis in lingula. There are small pleural effusions. No pneumothorax. Cardiomegaly is noted. Median sternotomy wires and mediastinal surgical clips are seen, likely from prior coronary artery bypass grafting. There are changes of anterior fusion procedure in cervical spine. IMPRESSION: 1. Small pleural effusions. 2. Cardiomegaly. Review of Systems Review of Systems: ROS unobtainable: Yes unobtainable due to mental status (delirious) [facility] Past Medical History Medical History (Updated 07/19/23 @ 00:34 by Indy Lorenzo MD) Cerebrovascular accident Coronary artery disease Hypertension Nicotine dependence Shingles Type 2 diabetes mellitus Surgical History Surgical History (Updated 07/18/23 @ 22:28 by Indy Lorenzo MD) History of amputation of toe (2016) History of cardiac catheterization History of coronary artery bypass graft (05/11/08) Family History Family History Other Cancer Diabetes mellitus Heart disease Social History Social History Social History: Surrogate medical decision maker: Domonique Adler, spouse. Code status: Full code. Smoking status: Never smoker Tobacco type: cigars Alcohol intake: never Drinks per week: 7 Substance use: never Lack of Transportation: No Lack of Food: Never True Current Housing: I Have Housing Concerned About Future Housing: No Difficulty Paying Gas/Electric Bills: No Difficulty Paying for Meds: No Currently Unemployed: No Education: Decline to Answer Difficulty w/ Childcare or Family Care: No Additional living arrangements comments: Lives with spouse in [place]. Additional occupation/education comments: Retired. Spiritual care concerns: No Meds Home Medications and Allergies Home Medications Medication Instructions Recorded Confirmed Type atorvastatin 80 mg tablet 80 mg PO HS 05/15/23 07/18/23 History dapagliflozin propanediol 5 mg 20 mg PO HS 05/15/23 07/18/23 History tablet (Farxiga) gabapentin 400 mg capsule 400 mg PO HS PRN nerve pain 05/15/23 07/18/23 History glimepiride 4 mg tablet 4 mg PO HS 05/15/23 07/18/23 History lisinopril 5 mg tablet 5 mg PO HS 05/15/23 07/18/23 History aspirin 325 mg tablet 325 mg PO DAILY 07/18/23 07/18/23 History diphenhydramine 25 1 tablet PO HS 07/18/23 07/18/23 History mg-acetaminophen 500 mg tablet (Tylenol PM Extra Strength) tizanidine 2 mg tablet 2 mg PO HS PRN muscle spasms 07/18/23 07/18/23 History Allergies Allergy/AdvReac Type Severity Reaction Status Date / Time amoxicillin [From Augmentin] AdvReac Vomiting Verified 07/18/23 16:10 clavulanic acid AdvReac Vomiting Verified 07/18/23 16:10 [From Augmentin] oxycodone AdvReac Other Verified 07/18/23 16:10 Vital Signs Vital Signs - 24 hr 07/18/23 16:00 07/18/23 18:27 07/18/23 18:39 Temperature Pulse Rate 63 70 72 Respiratory Rate 22 H 17 12 Blood Pressure 133/72 140/75 Pulse Oximetry 100 99 Oxygen Delivery Room Air
[2023-07-18 21:28] LABS: Glucose Point of Care 87 mg/dl (65-105)
--- NOTE | 2023-07-18 22:18 | ADMGEN ---
This patient, Santhosh Adler, was admitted to IMU Room 205-02. Patient/family oriented to hospital policies and general routines including ID bracelet, bed and alarms, visiting hours, pain management, procedures, bathroom and other care routines, personal items, smoking policy, room service/diet, and visiting hours. Information on how to activate the Rapid Response Team has been discussed. Patient/Family are encouraged to report perceived risks to care and to ask questions if they do not understand what they are told or what they should do.
[2023-07-18 22:46] LABS: Glucose Point of Care 66 mg/dl (65-105)
[2023-07-18 23:56] LABS: Glucose Point of Care 104 mg/dl (65-105)
[2023-07-18] MEDS: DEXTROSE 10% 1,000 ML 80 ML IV CONT (23:56)
[2023-07-18] MEDS: ACETAMINOPHEN 500 MG TABLET BY MOUTH (23:56)
[2023-07-18] MEDS: lisinopriL 5 MG TABLET PO (23:57)
[2023-07-18] MEDS: diphenhydrAMINE HCl CAP 25 MG CAPSULE PO (23:57)
[2023-07-18] MEDS: ATORVASTATIN 40 MG TABLET 80 MG PO (23:57)
[2023-07-19] VITALS (11 sets, daily range): BP systolic 82–163; BP diastolic 40–85; PULSE 39–73; RESP 14–20; TEMP 36.7–37.1; O2SAT 95–98
--- NOTE | 2023-07-19 01:51 | ECG_ITS ---
Measurements Intervals [place] Rate: 42 P: DC: 0 QRS: -17 QRSD: 126 T: 73 QT: 517 QTc: 434 Interpretive Statements ATRIAL FLUTTER/TACHYCARDIA WITH SLOW VENTRICULAR RESPONSE INTRAVENTRICULAR CONDUCTION DELAY INFERIOR INFARCT, AGE INDETERMINATE ANTERIOR INFARCT, AGE INDETERMINATE BORDERLINE ST-T WAVE ABNORMALITY- HIGH LATERAL LEADS BASELINE ARTIFACT- I, III, AVR, AVL, AVF ABNORMAL ECG COMPARED TO ECG 05/19/2023 06:21:59 ATRIAL FLUTTER NOW PRESENT Electronically Signed On 07-19-2023 7:00:17 CDT by Kal Rocha D.O.
[2023-07-19 02:08] LABS: Glucose Point of Care 166 mg/dl (65-105)
[2023-07-19 05:26] LABS: Glucose Point of Care 183 mg/dl (65-105)
--- NOTE | 2023-07-19 08:01 | PM.IMPN ---
Progress Note: A&P Assessment and Plan (1) Acute UTI: Code(s): N39.0 - Urinary tract infection, site not specified Status: Acute Assessment and Plan: Rocephin started 07/18 Follow-up urine culture (2) AMS (altered mental status): Code(s): R41.82 - Altered mental status, unspecified Status: Acute Assessment and Plan: Improving, monitor, multifactorial (3) GAYLE (acute kidney injury): Code(s): N17.9 - Acute kidney failure, unspecified Status: Acute Assessment and Plan: Hold lisinopril, IV fluids, monitor Creatinine pending (4) Hypoglycemia: Code(s): E16.2 - Hypoglycemia, unspecified Status: Acute Assessment and Plan: Hold home oral anti diabetics Hypoglycemia resolved, monitor (5) Type 2 diabetes mellitus: Qualifiers: Diabetes mellitus complication status: with circulatory complication Diabetes mellitus oil heaterman insulin use: with oil heaterman use Code(s): E11.9 - Type 2 diabetes mellitus without complications Status: Acute Assessment and Plan: Blood glucose reviewed 07/19 Accu-Cheks sliding scale insulin (6) Hypertension: Qualifiers: Hypertension type: secondary to endocrine disorders Qualified Code(s): I15.2 - Hypertension secondary to endocrine disorders Code(s): I10 - Essential (primary) hypertension Status: Acute Assessment and Plan: Blood pressure reviewed 07/19 Home lisinopril currently being held (7) Cerebrovascular accident: Code(s): I63.9 - Cerebral infarction, unspecified Status: Acute Assessment and Plan: Stable, monitor (8) Coronary artery disease: Qualifiers: Associated angina: without angina Coronary Disease-Associated Artery/Lesion type: [place] artery [place] vs. transplanted heart: [place] heart Qualified Code(s): I25.10 - Atherosclerotic heart disease of [place] coronary artery without angina pectoris Code(s): I25.10 - Atherosclerotic heart disease of [place] coronary artery without angina pectoris Status: Acute Assessment and Plan: Stable, monitor (9) Generalized weakness: Code(s): R53.1 - Weakness Status: Acute Assessment and Plan: Multifactorial, likely secondary to acute illness Appears to be progressively worsening since May, concern for cervical spine lesion versus transverse myelitis versus other etiologies, will order MRI of the cervical and lumbar spine Neurology consult ordered and pending (10) Amputation of left foot: Code(s): S98.912A - Complete traumatic amputation of left foot, level unspecified, initial encounter Status: Acute (11) Status post transmetatarsal amputation of right foot: Code(s): Z89.431 - Acquired absence of right foot Status: Acute Plan DVT prophylaxis with SCDs GI prophylaxis not indicated Code status full code Subjective Date/time seen: 07/19/23 08:01 Interval history: 77-year-old male with history of diabetes, hypertension, bilateral foot amputations is presenting with altered mental status and currently being treated for a UTI as well as hypoglycemia. Of note, patient's family members in the room and states that since May patient has had progressively worsening upper and lower extremity bilateral weakness that is becoming so severe he is having difficulty caring for himself. No overnight events noted. No chest pain or shortness of breath. No nausea, vomiting or diarrhea. No fevers or chills. Review of Systems Review of Systems: 12 point review of systems was assessed and was negative except as noted in the HPI Exam Narrative: General: No acute distress, alert and oriented per baseline HEENT: Atraumatic, normocephalic, mucous membranes moist CV: Regular rate and rhythm, S1, S2 Lungs: Clear to auscultation bilaterally, no rales or crackles noted, no wheezes, good air en
[2023-07-19 08:09] LABS: Glucose Point of Care 197 mg/dl (65-105)
[2023-07-19] MEDS: ASPIRIN 325 MG TABLET PO (08:34)
[2023-07-19 09:09] LABS: Basophils Percent Auto 0.5 % (0.2-1.2); Eosinophils Absolute Auto 0.1 K/mm3 (0-0.3); Eosinophils Percent Auto 1.6 % (0-4.4); Hematocrit 30.9 % (42.0-52.0); Hemoglobin 9.9 g/dL (14.0-18.0); Immature Granulocyte Absolute 0.04 K/mm3 (0.00-0.031); Immature Granulocyte Percent A 0.6 % (0-0.5); Lymphocytes Absolute Auto 0.87 K/mm3 (0.9-3.2); Lymphocytes Percent Auto 14.1 % (18.3-44.2); Mean Corpuscular Hemoglobin 30.2 pg (26-34); Mean Corpuscular Volume 94.2 fl (80-100); Mean Platelet Volume 11.2 fl (7.4-10.4); Monocytes Absolute Auto 0.6 K/mm3 (0.1-0.6); Monocytes Percent Auto 9.5 % (2.6-8.5); Neutrophils Absolute Auto 4.6 K/mm3 (1.3-6.7); Neutrophils Percent Auto 73.7 % (45.5-73.1); Platelet Count Result 110 k/mm3 (150-375); Red Blood Count 3.28 M/mm3 (4.6-6.20); Red Cell Distribution Width 14.5 % (11.5-14.5); White Blood Count 6.2 K/mm3 (4.5-10.0)
[2023-07-19 09:20] LABS: Alanine Aminotransferase 112 U/L (6-50); Albumin Level 3.1 g/dL (3.5-5.1); Alkaline Phosphatase 125 U/L (38-126); Anion Gap 10 mmol/L (8-16); Aspartate Amino Transferase 180 U/L (17-59); Bilirubin,Total 0.8 mg/dL (0.2-1.3); Blood Urea Nitrogen 40 mg/dL (9-20); Calcium 7.8 mg/dL (8.4-10.2); Carbon Dioxide 20 mmol/L (22-30); Chloride 106 mmol/L (98-107); Estimated CRCL calculation 45 ml/min; Estimated Glomerular Filt Rate 54; Glucose 209 mg/dL (65-110); Potassium 4.2 mmol/L (3.4-5.0); Sodium 136 mmol/L (137-145)
[2023-07-19 09:29] LABS: Hemoglobin A1C 6.5 % (<5.7)
[2023-07-19 09:46] LABS: Glucose Point of Care 249 mg/dl (65-105)
[2023-07-19 11:41] LABS: Glucose Point of Care 267 mg/dl (65-105)
[2023-07-19 13:52] LABS: Glucose Point of Care 264 mg/dl (65-105)
[2023-07-19 16:20] LABS: Glucose Point of Care 216 mg/dl (65-105)
--- NOTE | 2023-07-19 17:16 | PC.NURSE ---
This patient, Santhosh Adler, was transferred to [facility] on 07/19/23 at 1710. Personal belongings sent with patient. Report given to Mi. Appropriate documentation sent with patient.
[2023-07-19] MEDS: ATORVASTATIN 40 MG TABLET 80 MG PO (20:20)
[2023-07-19] MEDS: diphenhydrAMINE HCl CAP 25 MG CAPSULE PO (20:20)
[2023-07-19] MEDS: ACETAMINOPHEN 500 MG TABLET BY MOUTH (20:20)
[2023-07-19 20:47] LABS: Glucose Point of Care 172 mg/dl (65-105)
[2023-07-19] MEDS: TIZANIDINE HCL 2 MG TABLET PO (21:24)
[2023-07-19] MEDS: GABAPENTIN 400 MG CAPSULE PO (21:24)
[2023-07-20] MEDS: ACETAMINOPHEN 325 MG TABLET 650 MG PO (00:35)
[2023-07-20 05:22] LABS: Basophils Percent Auto 0.3 % (0.2-1.2); Eosinophils Absolute Auto 0.2 K/mm3 (0-0.3); Eosinophils Percent Auto 1.9 % (0-4.4); Hematocrit 29.7 % (42.0-52.0); Hemoglobin 9.6 g/dL (14.0-18.0); Immature Granulocyte Absolute 0.08 K/mm3 (0.00-0.031); Lymphocytes Absolute Auto 1.24 K/mm3 (0.9-3.2); Lymphocytes Percent Auto 15.7 % (18.3-44.2); Mean Corpuscular HGB Conc 32.3 g/dl (32-36); Mean Corpuscular Hemoglobin 30.1 pg (26-34); Mean Corpuscular Volume 93.1 fl (80-100); Mean Platelet Volume 11.8 fl (7.4-10.4); Monocytes Absolute Auto 0.7 K/mm3 (0.1-0.6); Monocytes Percent Auto 9.2 % (2.6-8.5); Neutrophils Absolute Auto 5.7 K/mm3 (1.3-6.7); Neutrophils Percent Auto 71.9 % (45.5-73.1); Platelet Count Result 129 k/mm3 (150-375); Red Blood Count 3.19 M/mm3 (4.6-6.20); Red Cell Distribution Width 14.4 % (11.5-14.5); White Blood Count 7.9 K/mm3 (4.5-10.0)
[2023-07-20 05:36] LABS: Alanine Aminotransferase 116 U/L (6-50); Albumin Level 2.9 g/dL (3.5-5.1); Alkaline Phosphatase 134 U/L (38-126); Anion Gap 8 mmol/L (8-16); Aspartate Amino Transferase 113 U/L (17-59); Bilirubin,Total 0.8 mg/dL (0.2-1.3); Blood Urea Nitrogen 41 mg/dL (9-20); Calcium 7.8 mg/dL (8.4-10.2); Carbon Dioxide 22 mmol/L (22-30); Chloride 107 mmol/L (98-107); Estimated CRCL calculation 42 ml/min; Estimated Glomerular Filt Rate 49; Glucose 141 mg/dL (65-110); Potassium 4.4 mmol/L (3.4-5.0); Sodium 137 mmol/L (137-145)
[2023-07-20 06:33] VITALS: BP 148/73; PULSE 61; RESP 16; TEMP 36.7; O2SAT 98
[2023-07-20] MEDS: ASPIRIN 325 MG TABLET PO (08:35)
[2023-07-20 08:57] LABS: Glucose Point of Care 136 mg/dl (65-105)
--- NOTE | 2023-07-20 11:37 | P.PNIM_ITS ---
Progress Note: A&P Assessment and Plan (1) Generalized weakness: Code(s): R53.1 - Weakness Status: Acute Assessment and Plan: Multifactorial, likely secondary to acute illness Appears to be progressively worsening since May, concern for cervical spine lesion versus transverse myelitis versus other etiologies, MRI of the cervical and lumbar spine severely abnormal Neurology and neurosurgery consults appreciated Plan for surgical decompression per NS, follow (2) Acute UTI: Code(s): N39.0 - Urinary tract infection, site not specified Status: Acute Assessment and Plan: Rocephin started 07/18 Follow-up urine culture (3) AMS (altered mental status): Code(s): R41.82 - Altered mental status, unspecified Status: Acute Assessment and Plan: Improving, monitor, multifactorial (4) GAYLE (acute kidney injury): Code(s): N17.9 - Acute kidney failure, unspecified Status: Acute vomiting or diarrhea. No fevers or chills. Review of Systems Review of Systems: 12 point review of systems was assessed and was negative except as noted in the HPI Exam Narrative: General: No acute distress, alert and oriented per baseline HEENT: Atraumatic, normocephalic, mucous membranes moist CV: Regular rate and rhythm, S1, S2 Lungs: Clear to auscultation bilaterally, no rales or crackles noted, no wheezes, good air entry Abdomen: Soft, nontender, nondistended Extremities: Normal to inspection Skin: No rashes noted, no lesions or wounds seen Psych: Euthymic, normal affect Neuro: Cranial nerves 2-12 grossly intact, strength +3/5 upper and lower extremities bilaterally Objective Data Vital Signs Vital Signs: Vital Signs - 24 hr 07/19/23 11:44 07/19/23 12:00 07/19/23 12:00 Temperature 98.8 F Pulse Rate 62 64 64 Respiratory Rate 14 Blood Pressure 110/55 L Pulse Oximetry 95 Oxygen Delivery Room Air 07/19/23 14:00 07/19/23 16:00 07/19/23 17:20 Temperature 98.4 F Pulse Rate 67 65 Respiratory Rate 20 Blood Pressure 125/67 Pulse Oximetry 96 Oxygen Delivery Room Air 07/19/23 19:41 07/20/23 06:33 07/20/23 08:28 Temperature 98.5 F 98.1 F Pulse Rate 73 61 Respiratory Rate 16 16 Blood Pressure 163/85 H 148/73 H Pulse Oximetry 95 98 Oxygen Delivery Room Air Intake/Output Intake/Output: Intake & Output 07/17/23 07/18/23 07/19/23 07/20/23 23:59 23:59 23:59 23:59 Intake Total 50 1340 250 Output Total 400 250 350 Balance -350 1090 -100 Meds/Results Medications: Active Medications Generic Name Dose Route Start Last Admin Trade Name Freq PRN Reason Stop Dose Admin Acetaminophen 650 mg 07/18/23 21:20 07/20/23 00:35 Acetaminophen 325 Mg Tablet PO 650 mg Q4H PRN Administration Mild Pain (1-3) or Fever Acetaminophen 500 mg 07/18/23 23:42 07/19/23 20:20 Acetaminophen 500 Mg Tablet BY MOUTH 500 mg HS SARAH BETH Administration Aspirin 325 mg
--- NOTE | 2023-07-20 11:37 | PM.IMPN ---
Progress Note: A&P Assessment and Plan (1) Generalized weakness: Code(s): R53.1 - Weakness Status: Acute Assessment and Plan: Multifactorial, likely secondary to acute illness Appears to be progressively worsening since May, concern for cervical spine lesion versus transverse myelitis versus other etiologies, MRI of the cervical and lumbar spine severely abnormal Neurology and neurosurgery consults appreciated Plan for surgical decompression per NS, follow (2) Acute UTI: Code(s): N39.0 - Urinary tract infection, site not specified Status: Acute Assessment and Plan: Rocephin started 07/18 Follow-up urine culture (3) AMS (altered mental status): Code(s): R41.82 - Altered mental status, unspecified Status: Acute Assessment and Plan: Improving, monitor, multifactorial (4) GAYLE (acute kidney injury): Code(s): N17.9 - Acute kidney failure, unspecified Status: Acute Assessment and Plan: Hold lisinopril, IV fluids, monitor Creatinine pending (5) Hypoglycemia: Code(s): E16.2 - Hypoglycemia, unspecified Status: Acute Assessment and Plan: Hold home oral anti diabetics Hypoglycemia resolved, monitor (6) Type 2 diabetes mellitus: Qualifiers: Diabetes mellitus complication status: with circulatory complication Diabetes mellitus exterminator termite insulin use: with exterminator termite use Code(s): E11.9 - Type 2 diabetes mellitus without complications Status: Acute Assessment and Plan: Blood glucose reviewed 07/19 Accu-Cheks sliding scale insulin (7) Hypertension: Qualifiers: Hypertension type: secondary to endocrine disorders Qualified Code(s): I15.2 - Hypertension secondary to endocrine disorders Code(s): I10 - Essential (primary) hypertension Status: Acute Assessment and Plan: Blood pressure reviewed 07/20 Home lisinopril currently being held (8) Cerebrovascular accident: Code(s): I63.9 - Cerebral infarction, unspecified Status: Acute Assessment and Plan: Stable, monitor (9) Coronary artery disease: Qualifiers: Associated angina: without angina Coronary Disease-Associated Artery/Lesion type: [place] artery [place] vs. transplanted heart: [place] heart Qualified Code(s): I25.10 - Atherosclerotic heart disease of [place] coronary artery without angina pectoris Code(s): I25.10 - Atherosclerotic heart disease of [place] coronary artery without angina pectoris Status: Acute Assessment and Plan: Stable, monitor (10) Amputation of left foot: Code(s): S98.912A - Complete traumatic amputation of left foot, level unspecified, initial encounter Status: Acute (11) Status post transmetatarsal amputation of right foot: Code(s): Z89.431 - Acquired absence of right foot Status: Acute Plan DVT prophylaxis with SCDs GI prophylaxis not indicated Code status full code Subjective Date/time seen: 07/20/23 11:37 Interval history: 77-year-old male with history of diabetes, hypertension, bilateral foot amputations is presenting with altered mental status and currently being treated for a UTI as well as hypoglycemia. Of note, patient's family members in the room and states that since May patient has had progressively worsening upper and lower extremity bilateral weakness that is becoming so severe he is having difficulty caring for himself. No overnight events noted. No chest pain or shortness of breath. No nausea, vomiting or diarrhea. No fevers or chills. Review of Systems Review of Systems: 12 point review of systems was assessed and was negative except as noted in the HPI Exam Narrative: General: No acute distress, alert and oriented per baseline HEENT: Atraumatic, normocephalic, mucous membranes moist CV: Regular rate and rhythm, S1, S2 Lungs: Clear to auscultation
[2023-07-20 11:55] LABS: Glucose Point of Care 143 mg/dl (65-105)
--- NOTE | 2023-07-20 12:23 | WPDNEURCNPN ---
Assessment and Plan Assessment and plan (1) AMS (altered mental status): Code(s): R41.82 - Altered mental status, unspecified Status: Acute (2) History of atrial fibrillation less than 8 weeks after coronary artery bypass graft: Code(s): Z86.79 - Personal history of other diseases of the circulatory system Status: Acute (3) History of CVA (cerebrovascular accident): Code(s): Z86.73 - Personal history of transient ischemic attack (TIA), and cerebral infarction without residual deficits Status: Acute (4) Carotid arterial disease: Qualifiers: Carotid artery disease type: occlusion Laterality: right Qualified Code(s): I65.21 - Occlusion and stenosis of right carotid artery Code(s): I77.9 - Disorder of arteries and arterioles, unspecified Status: Acute Plan 1 metabolic encephalopathy with ongoing history of hypoglycemia and UTI in addition to documented hypoglycemia 2his MRI in May was consistent with old infarct involving the left cerebellum right basal ganglia right insula and right frontoparietal region and also CTA documenting total occlusion right internal carotid artery with 17% stenosis of proximal left internal carotid 3aspirin can be continued as such in addition we can add the Plavix 75 mg daily for the next 3 months and obviously he will be treated for the infection at this particular time. Consult date: 07/20/23 HPI: Santhosh Adler is a 77 year old maleRichard to the hospital for the complaints of being sick, Patient has recently been discharged from the hospital with the diagnosis of 1. Cerebrovascular accident 2. Coronary artery disease 3. Diabetes mellitus type 2 and 4. Hypertension reportedly patient was acting sec and assuming it was secondary to UTI his initial blood glucose was 34 after receiving D10 the repeat blood sugar was 108 Natalia arrived to the ER he was alert and oriented but complained of pain in the buttocks he gave no history of any other symptomatology he gave no history of any changes in the medication and had been taking glimepiride and Farsi as prescribed patient does have ongoing history of bilateral foot amputation . At the time of visit to the emergency room his medication included atorvastatin 80 mg at night glimepiride 4 mg at night lisinopril 5 mg at night aspirin 325 mg daily and tizanidine 2 mg at night on p.r.n. basis. He does have ongoing history of coronary artery bypass graft May 11, 2008, there is no history of smoking or drinking, his initial vital signs in the emergency room was normal except 1 blood pressure 82/40, initial lab was with BUN of 46, blood sugar of 48, he has had MRIs with cervical MRI documenting myelomalacia at C3-4 and C4-5 with severe cervical spondylosis and anterior fusion procedure at C6 and 7 lumbar spine MRI with chronic bilateral L5 pars defect with grade 2 anterolisthesis of L5 on S1 with severe lumbar spondylosis Review of Systems Review of Systems: All systems reviewed & are unremarkable except as noted in HPI and below PMFSH Past Medical History Medical History (Updated 07/19/23 @ 00:34 by Indy Lorenzo MD) Cerebrovascular accident Coronary artery disease Hypertension Nicotine dependence Shingles Type 2 diabetes mellitus Surgical History Surgical History (Updated 07/18/23 @ 22:28 by Indy Lorenzo MD) History of amputation of toe (2016) History of cardiac catheterization History of coronary artery bypass graft (05/11/08) Family History Family History Other Cancer Diabetes mellitus Heart disease Social History Social History Social History: Surrogate medical decision maker: Domonique Adler, spouse. Code status: Full code. Smoking status: Never smoker Tobacco type: cigars Alcohol intake: never Drinks per week: 7 Substance use: never Lack of Transportation:
--- NOTE | 2023-07-20 13:06 | WPDNEUROSGCN ---
Assessment and Plan Assessment and plan (1) Cervical stenosis of spinal canal: Code(s): M48.02 - Spinal stenosis, cervical region Status: Acute (2) Pars defect with spondylolisthesis: Code(s): M43.10 - Spondylolisthesis, site unspecified Status: Acute Plan Santhosh is a 77-year-old gentleman has fairly severe cervical myelopathy rendering him unable to effectively use his arms and legs. This will require surgical decompression by way of C3-C6 anterior cervical diskectomy and fusion as the vector is mostly anterior. This should be done in the next few days and during this admission if possible. I will try to make those arrangements soon as I can. He may participate in physical and occupational therapy in the meantime. Steroids could be helpful. I would consider Decadron if it is okay with his other treating physicians. Starting dose of 10 mg x 1 followed by 4 mg q.6 hours could help with his myelopathic symptoms but has a been going on for couple of months may not have much impact. The reason to do the surgery would be to stop the process that is currently happening. Whether it will reverse himself and he will become more functional is unknown but certainly will not happen without the severe compression currently taking place being dealt with surgically. Consult date: 07/20/23 HPI: Santhosh Adler is a 77 year old male who was presented to the hospital for blood sugar issues and generalized weakness as well as an inability for him to take care of himself at home with his who is 77. In May he apparently had an episode of weakness associated with a fall and since that time has not been ambulatory. Of note, he has amputations of both feet but is ambulatory with prosthetics. However, he has not been ambulatory since early May according to the patient. He was for a brief time in a rehabilitation facility but and desired to go home and his thought she could take care of him. Santhosh describes an inability to walk and is nonspecific about why. It seems that there are strength issues and perhaps balance issues. On questioning he also admits to weakness and numbness in his hands and a loss of dexterity that make it difficult for him to use his hands. He has some vague neck discomfort but this is not his main symptom. He has undergone MRI evaluation of both cervical and lumbar spine which is available for my review. Review of Systems Review of Systems: Patient denies shortness of breath, cough, fever, chills, nausea, vomiting, weight loss, weight gain, chest pain, dysuria. He has generalized weakness and other myelopathic symptoms as above. [facility] Past Medical History Medical History Cerebrovascular accident Coronary artery disease Hypertension Nicotine dependence Shingles Type 2 diabetes mellitus Surgical History Surgical History History of amputation of toe (2017) History of cardiac catheterization History of coronary artery bypass graft (05/11/08) Family History Family History Other Cancer Diabetes mellitus Heart disease Social History Social History Social History: Surrogate medical decision maker: Domonique Adler, spouse. Code status: Full code. Smoking status: Never smoker Tobacco type: cigars Alcohol intake: never Drinks per week: 7 Substance use: never Lack of Transportation: No Lack of Food: Never True Current Housing: I Have Housing Concerned About Future Housing: No Difficulty Paying Gas/Electric Bills: No Difficulty Paying for Meds: No Currently Unemployed: No Education: Decline to Answer Difficulty w/ Childcare or Family Care: No Additional living arrangements comments: Lives with spouse in [place]. Additional occupation
--- NOTE | 2023-07-20 15:14 | PCPTNOTE ---
Discussed with patient participating in therapy. Neurology note states he is able to participate in PT/OT between now and surgery for C3-C6. Pt declines at this time stating he would rather tomorrow morning. Will check back with patient tomorrow.
--- NOTE | 2023-07-20 15:15 | PCOTNOTE ---
Attempted OT evaluation. Pt. refused stating he was tired and will be having surgery on his neck soon. Educated on importance of participating in therapy prior to surgery. Pt. again refused stating he will participate tomorrow am.
[2023-07-20 15:17] VITALS: BP 140/71; PULSE 62; RESP 20; TEMP 36.5; O2SAT 98
[2023-07-20 16:51] LABS: Glucose Point of Care 259 mg/dl (65-105)
[2023-07-20] MEDS: INSULIN ASPART (*BKC) 100 UNITS/ML SUB-Q (17:14)
[2023-07-20] MEDS: DEXAMETHASONE SOD PHOS INJ 4 MG/ML VIAL IV PUSH (18:10)
[2023-07-20 19:53] VITALS: BP 126/79; PULSE 66; RESP 16; TEMP 36.5; O2SAT 97
[2023-07-20] MEDS: ATORVASTATIN 40 MG TABLET 80 MG PO (21:10)
[2023-07-20] MEDS: ACETAMINOPHEN 500 MG TABLET BY MOUTH (21:11)
[2023-07-20] MEDS: diphenhydrAMINE HCl CAP 25 MG CAPSULE PO (21:11)
[2023-07-20 22:25] LABS: Glucose Point of Care 258 mg/dl (65-105)
[2023-07-21] MEDS: DEXAMETHASONE SOD PHOS INJ 4 MG/ML VIAL IV PUSH ×4 (00:43→18:00)
[2023-07-21 05:03] LABS: Basophils Percent Auto 0.3 % (0.2-1.2); Eosinophils Percent Auto 0.2 % (0-4.4); Hematocrit 33.1 % (42.0-52.0); Hemoglobin 10.8 g/dL (14.0-18.0); Immature Granulocyte Absolute 0.13 K/mm3 (0.00-0.031); Immature Granulocyte Percent A 2.2 % (0-0.5); Lymphocytes Absolute Auto 0.44 K/mm3 (0.9-3.2); Lymphocytes Percent Auto 7.5 % (18.3-44.2); Mean Corpuscular HGB Conc 32.6 g/dl (32-36); Mean Corpuscular Hemoglobin 30.3 pg (26-34); Monocytes Absolute Auto 0.2 K/mm3 (0.1-0.6); Monocytes Percent Auto 3.6 % (2.6-8.5); Neutrophils Percent Auto 86.2 % (45.5-73.1); Platelet Count Result 144 k/mm3 (150-375); Red Blood Count 3.56 M/mm3 (4.6-6.20); White Blood Count 5.8 K/mm3 (4.5-10.0)
[2023-07-21 05:20] LABS: Alanine Aminotransferase 100 U/L (6-50); Albumin Level 3.2 g/dL (3.5-5.1); Alkaline Phosphatase 145 U/L (38-126); Anion Gap 14 mmol/L (8-16); Aspartate Amino Transferase 67 U/L (17-59); Bilirubin,Total 0.8 mg/dL (0.2-1.3); Blood Urea Nitrogen 45 mg/dL (9-20); Calcium 8.2 mg/dL (8.4-10.2); Carbon Dioxide 18 mmol/L (22-30); Chloride 105 mmol/L (98-107); Estimated CRCL calculation 45 ml/min; Estimated Glomerular Filt Rate 54; Glucose 280 mg/dL (65-110); Potassium 5.2 mmol/L (3.4-5.0); Sodium 137 mmol/L (137-145)
[2023-07-21 05:25] VITALS: BP 144/73; PULSE 62; RESP 16; TEMP 36.8; O2SAT 97
[2023-07-21 07:55] LABS: Glucose Point of Care 264 mg/dl (65-105)
[2023-07-21] MEDS: ASPIRIN 325 MG TABLET PO (08:49)
[2023-07-21] MEDS: INSULIN ASPART (*BKC) 100 UNITS/ML SUB-Q ×3 (08:49→17:58)
--- NOTE | 2023-07-21 08:58 | PM.IMPN ---
Progress Note: A&P Assessment and Plan (1) Generalized weakness: Code(s): R53.1 - Weakness Status: Acute Assessment and Plan: Multifactorial, likely secondary to acute illness Appears to be progressively worsening since May, concern for cervical spine lesion versus transverse myelitis versus other etiologies MRI of the cervical and lumbar spine severely abnormal, neurology and neurosurgery consults appreciated Plan for surgical decompression per NS, follow, likely scheduled for Saturday, 07/23 (2) Acute UTI: Code(s): N39.0 - Urinary tract infection, site not specified Status: Acute Assessment and Plan: Rocephin started 07/18 Follow-up urine culture Culture came back positive MRSA, d/c rocephin, initiate vancomycin (3) AMS (altered mental status): Code(s): R41.82 - Altered mental status, unspecified Status: Acute Assessment and Plan: Improving, monitor, multifactorial (4) GAYLE (acute kidney injury): Code(s): N17.9 - Acute kidney failure, unspecified Status: Acute Assessment and Plan: Hold lisinopril, IV fluids, monitor Creat stable Resolved (5) Hypoglycemia: Code(s): E16.2 - Hypoglycemia, unspecified Status: Acute Assessment and Plan: Hold home oral anti diabetics Hypoglycemia resolved, monitor (6) Type 2 diabetes mellitus: Qualifiers: Diabetes mellitus complication status: with circulatory complication Diabetes mellitus group home insulin use: with joint terminal attack controller use Code(s): E11.9 - Type 2 diabetes mellitus without complications Status: Acute Assessment and Plan: Blood glucose reviewed 07/21 Accu-Cheks sliding scale insulin (7) Hypertension: Qualifiers: Hypertension type: secondary to endocrine disorders Qualified Code(s): I15.2 - Hypertension secondary to endocrine disorders Code(s): I10 - Essential (primary) hypertension Status: Acute Assessment and Plan: Blood pressure reviewed 07/21 Home lisinopril currently being held (8) Cerebrovascular accident: Code(s): I63.9 - Cerebral infarction, unspecified Status: Acute Assessment and Plan: Stable, monitor (9) Coronary artery disease: Qualifiers: Associated angina: without angina Coronary Disease-Associated Artery/Lesion type: [place] artery [place] vs. transplanted heart: [place] heart Qualified Code(s): I25.10 - Atherosclerotic heart disease of [place] coronary artery without angina pectoris Code(s): I25.10 - Atherosclerotic heart disease of [place] coronary artery without angina pectoris Status: Acute Assessment and Plan: Stable, monitor (10) Amputation of left foot: Code(s): S98.912A - Complete traumatic amputation of left foot, level unspecified, initial encounter Status: Acute (11) Status post transmetatarsal amputation of right foot: Code(s): Z89.431 - Acquired absence of right foot Status: Acute Plan DVT prophylaxis with SCDs GI prophylaxis not indicated Code status full code Subjective Date/time seen: 07/21/23 08:58 Interval history: 77-year-old male with history of diabetes, hypertension, bilateral foot amputations is presenting with altered mental status and currently being treated for a UTI as well as hypoglycemia. Of note, patient's family members in the room and states that since May patient has had progressively worsening upper and lower extremity bilateral weakness that is becoming so severe he is having difficulty caring for himself. No overnight events noted. No chest pain or shortness of breath. No nausea, vomiting or diarrhea. No fevers or chills. Review of Systems Review of Systems: 12 point review of systems was assessed and was negative except as noted in the HPI Exam Narrative: General: No acute distress, alert and oriented per baseline HEENT: [place]
[2023-07-21 10:09] VITALS: BMI 10.0
--- NOTE | 2023-07-21 10:29 | WPDNEUROSGPN ---
Progress Note: A&P Assessment and Plan (1) Cervical stenosis of spinal canal: Code(s): M48.02 - Spinal stenosis, cervical region Status: Acute Plan Timing of surgery is not yet been determined. It will likely take until morning to figure the schedules out. We will keep him appraised. Prognostically I think there is not much chance that he will gain a ton of functional improvement. Still, the surgery needs to be done in order to stop the process and hopefully give him some hope of return of function. Subjective Date/time seen: 07/21/23 10:29 Interval history: Santhosh is about the same today. He is not experiencing any pain. He has diffuse weakness is in his upper and lower extremities. He remains nonambulatory. Exam Narrative: There is diffuse weakness in the bilateral upper and lower extremities. Reflexes are difficult to elicit in the upper or lower extremities. Sensation is intact but decreased in the hands subjectively. Objective Data Vital Signs Vital Signs: Vital Signs - 24 hr 07/20/23 15:17 07/20/23 19:53 07/20/23 20:00 Temperature 97.7 F 97.7 F Pulse Rate 62 66 Respiratory Rate 20 16 Blood Pressure 140/71 126/79 Pulse Oximetry 98 97 Oxygen Delivery Room Air 07/21/23 05:25 07/21/23 10:09 Temperature 98.2 F Pulse Rate 62 Respiratory Rate 16 Blood Pressure 144/73 H Pulse Oximetry 97 Oxygen Delivery Room Air Intake/Output Intake/Output: Intake & Output 07/18/23 07/19/23 07/20/23 07/21/23 23:59 23:59 23:59 23:59 Intake Total 50 1340 1290 100 Output Total 400 250 750 600 Balance -350 1090 540 -500 Meds/Results Medications: Active Medications Generic Name Dose Route Start Last Admin Trade Name Freq PRN Reason Stop Dose Admin Acetaminophen 650 mg 07/18/23 21:20 07/20/23 00:35 Acetaminophen 325 Mg Tablet PO 650 mg Q4H PRN Administration Mild Pain (1-3) or Fever Acetaminophen 500 mg 07/18/23 23:42 07/20/23 21:11 Acetaminophen 500 Mg Tablet BY MOUTH 500 mg HS SARAH BETH Administration Aspirin 325 mg 07/19/23 08:00 07/21/23 08:49 Aspirin 325 Mg Tablet PO 325 mg DAILY@0800 SARAH BETH Administration Atorvastatin Calcium 80 mg 07/18/23 23:25 07/20/23 21:10 Atorvastatin 40 Mg Tablet PO 80 mg HS SARAH BETH Administration Dexamethasone Sodium Phosphate 4 mg 07/20/23 18:00 07/21/23 06:02 Dexamethasone Sod Phos Inj 4 Mg/Ml Vial IV PUSH 4 mg Q6HR SARAH BETH Administration Dextrose 12.5 gm 07/18/23 16:51 07/18/23 18:51 Dextrose 50% 25 Gm/50 Ml Syringe IV PUSH 12.5 gm PRN PRN Administration Hypoglycemia Protocol Diphenhydramine HCl 25 mg 07/18/23 23:42 07/20/23 21:11 Diphenhydramine Hcl Cap 25 Mg Capsule PO 25 mg HS SARAH BETH Administration Gabapentin 400 mg 07/18/23 23:09 07/19/23 21:24 Gabapentin 400 Mg Capsule PO 400 mg HS PRN Administration nerve pain Glucagon 1 mg 07/18/23 16:51 Glucagon For Inj 1 Mg Vial IM PRN PRN Hypoglycemia Protocol Glucose 15 gm 07/18/23 16:51 Glucose Oral Gel 15 Gm Of Glucse In 37.5 Gm Tube PO PRN PRN Hypoglycemia Protocol Dextrose 1,000 mls @ 100 mls/hr 07/18/23 20:42 Dextrose 5% 1,000 Ml IVPB PRN PRN Hypoglycemia Protocol Vancomycin HCl 1,500 mg in 500 mls @ 250 mls/hr 07/20/23 13:00 07/20/23 16:14 Vancomycin 1,500 Mg/D5w 500 Ml IVPB Infused Q24H SARAH BETH Infusion Insulin Aspart 2 - 5 units 07/20/23 17:00 07/21/23 08:49 Insulin Aspart (*Bkc) 100 Units/Ml SUB-Q 3 units TIDWM SARAH BETH Administration Protocol Miconazole Nitrate 1 applic 07/19/23 09:00 07/21/23 08:49 Miconazole 2% Antifungal Ointment 56 Gm TOPICAL 1 applic Q12HR SARAH BETH Administration Ondansetron HCl 4 mg 07/18/23 21:20 Ondansetron Inj 4 Mg/2 Ml Vial IV PUSH Q4H PRN Nausea Tizanidine HCl 2 mg 07/18/23 23:09 07/19/23 21:24 Tizanidine Hcl 2 Mg Tablet PO 2 mg HS PRN Adm
[2023-07-21 11:50] LABS: Glucose Point of Care 349 mg/dl (65-105)
[2023-07-21 14:50] VITALS: BP 164/66; PULSE 59; RESP 20; TEMP 36.7; O2SAT 99
[2023-07-21 17:03] LABS: Glucose Point of Care 438 mg/dl (65-105)
[2023-07-21 17:56] LABS: Glucose Point of Care 480 mg/dl (65-105)
[2023-07-21] MEDS: INSULIN ASPART (*BKC) 100 UNITS/ML 10 UNITS SUB-Q ×2 (17:58→22:22)
[2023-07-21 19:35] LABS: Glucose Point of Care 444 mg/dl (65-105)
[2023-07-21] MEDS: ATORVASTATIN 40 MG TABLET 80 MG PO (21:11)
[2023-07-21 22:01] LABS: Glucose Point of Care 381 mg/dl (65-105)
[2023-07-21] MEDS: diphenhydrAMINE HCl CAP 25 MG CAPSULE PO (22:21)
[2023-07-21] MEDS: ACETAMINOPHEN 500 MG TABLET BY MOUTH (22:21)
[2023-07-22] VITALS: BP 168/81; PULSE 57; RESP 18; TEMP 36.3; O2SAT 98
[2023-07-22] MEDS: DEXAMETHASONE SOD PHOS INJ 4 MG/ML VIAL IV PUSH ×4 (00:23→17:28)
[2023-07-22 00:35] LABS: Glucose Point of Care 424 mg/dl (65-105)
[2023-07-22] MEDS: INSULIN ASPART (*BKC) 100 UNITS/ML 15 UNITS SUB-Q ×2 (01:08→04:25)
[2023-07-22] MEDS: INSULIN GLARGINE (*BKC) 100 UNITS/ML 10 UNITS SUB-Q ×2 (01:09→12:02)
[2023-07-22 04:15] LABS: Glucose Point of Care 374 mg/dl (65-105)
[2023-07-22 05:32] LABS: Basophils Percent Auto 0.3 % (0.2-1.2); Hematocrit 34.7 % (42.0-52.0); Hemoglobin 11.5 g/dL (14.0-18.0); Immature Granulocyte Absolute 0.62 K/mm3 (0.00-0.031); Immature Granulocyte Percent A 4.3 % (0-0.5); Lymphocytes Absolute Auto 0.49 K/mm3 (0.9-3.2); Lymphocytes Percent Auto 3.4 % (18.3-44.2); Mean Corpuscular HGB Conc 33.1 g/dl (32-36); Mean Corpuscular Hemoglobin 30.3 pg (26-34); Mean Corpuscular Volume 91.6 fl (80-100); Mean Platelet Volume 11.3 fl (7.4-10.4); Monocytes Absolute Auto 0.8 K/mm3 (0.1-0.6); Monocytes Percent Auto 5.4 % (2.6-8.5); Neutrophils Absolute Auto 12.6 K/mm3 (1.3-6.7); Neutrophils Percent Auto 86.6 % (45.5-73.1); Platelet Count Result 252 k/mm3 (150-375); Red Blood Count 3.79 M/mm3 (4.6-6.20); Red Cell Distribution Width 13.7 % (11.5-14.5); White Blood Count 14.5 K/mm3 (4.5-10.0)
[2023-07-22 05:45] LABS: Alanine Aminotransferase 79 U/L (6-50); Albumin Level 3.4 g/dL (3.5-5.1); Alkaline Phosphatase 153 U/L (38-126); Anion Gap 13 mmol/L (8-16); Aspartate Amino Transferase 42 U/L (17-59); Bilirubin,Total 0.6 mg/dL (0.2-1.3); Blood Urea Nitrogen 60 mg/dL (9-20); Calcium 8.4 mg/dL (8.4-10.2); Carbon Dioxide 19 mmol/L (22-30); Chloride 102 mmol/L (98-107); Estimated CRCL calculation 45 ml/min; Estimated Glomerular Filt Rate 54; Glucose 352 mg/dL (65-110); Potassium 4.4 mmol/L (3.4-5.0); Sodium 134 mmol/L (137-145)
[2023-07-22 06:00] LABS: Anisocytosis 1+ (NORMAL); Platelet Estimate Adequate (Adequate)
[2023-07-22 06:01] LABS: Poikilocytosis 1+ (NORMAL); Schistocytes Rare (NORMAL)
[2023-07-22 08:23] LABS: Glucose Point of Care 257 mg/dl (65-105)
--- NOTE | 2023-07-22 08:31 | PM.IMPN ---
Progress Note: A&P Assessment and Plan (1) Generalized weakness: Code(s): R53.1 - Weakness Status: Acute Assessment and Plan: MRI of the cervical and lumbar spine severely abnormal, neurology and neurosurgery consults appreciated Plan for surgical decompression per NS, follow, likely scheduled for Saturday, 07/23 (2) Acute UTI: Code(s): N39.0 - Urinary tract infection, site not specified Status: Acute Assessment and Plan: Rocephin started 07/18 Follow-up urine culture Culture came back positive MRSA, d/c rocephin, initiate vancomycin (3) AMS (altered mental status): Code(s): R41.82 - Altered mental status, unspecified Status: Acute Assessment and Plan: Improving, monitor, multifactorial (4) GAYLE (acute kidney injury): Code(s): N17.9 - Acute kidney failure, unspecified Status: Acute Assessment and Plan: Hold lisinopril, IV fluids, monitor Creat stable Resolved (5) Hypoglycemia: Code(s): E16.2 - Hypoglycemia, unspecified Status: Acute Assessment and Plan: Hold home oral anti diabetics Hypoglycemia resolved, monitor Now hyperglycemic (6) Type 2 diabetes mellitus: Qualifiers: Diabetes mellitus complication status: with circulatory complication Diabetes mellitus manager long term care insulin use: with manager long term care use Code(s): E11.9 - Type 2 diabetes mellitus without complications Status: Acute Assessment and Plan: Blood glucose reviewed 07/22 Accu-Cheks sliding scale insulin Lantus 10 units started now, d/c after decadron d/c (7) Hypertension: Qualifiers: Hypertension type: secondary to endocrine disorders Qualified Code(s): I15.2 - Hypertension secondary to endocrine disorders Code(s): I10 - Essential (primary) hypertension Status: Acute Assessment and Plan: Blood pressure reviewed 07/22 Home lisinopril currently being held (8) Cerebrovascular accident: Code(s): I63.9 - Cerebral infarction, unspecified Status: Acute Assessment and Plan: Stable, monitor (9) Coronary artery disease: Qualifiers: Associated angina: without angina Coronary Disease-Associated Artery/Lesion type: [place] artery [place] vs. transplanted heart: [place] heart Qualified Code(s): I25.10 - Atherosclerotic heart disease of [place] coronary artery without angina pectoris Code(s): I25.10 - Atherosclerotic heart disease of [place] coronary artery without angina pectoris Status: Acute Assessment and Plan: Stable, monitor (10) Amputation of left foot: Code(s): S98.912A - Complete traumatic amputation of left foot, level unspecified, initial encounter Status: Acute (11) Status post transmetatarsal amputation of right foot: Code(s): Z89.431 - Acquired absence of right foot Status: Acute Plan DVT prophylaxis with SCDs GI prophylaxis not indicated Code status full code Subjective Date/time seen: 07/22/23 08:31 Interval history: 77-year-old male with history of diabetes, hypertension, bilateral foot amputations is presenting with altered mental status and currently being treated for a UTI as well as hypoglycemia, also found to have progressively worsening weakness requiring spinal decompression surgery, OR 07/23. No overnight events noted. No chest pain or shortness of breath. No nausea, vomiting or diarrhea. No fevers or chills. Review of Systems Review of Systems: 12 point review of systems was assessed and was negative except as noted in the HPI Exam Narrative: General: No acute distress, alert and oriented per baseline HEENT: Atraumatic, normocephalic, mucous membranes moist CV: Regular rate and rhythm, S1, S2 Lungs: Clear to auscultation bilaterally, no rales or crackles noted, no wheezes, good air entry Abdomen: Soft, nontender, nondistended Extremities: Normal
[2023-07-22] MEDS: INSULIN ASPART (*BKC) 100 UNITS/ML SUB-Q ×3 (08:43→17:28)
[2023-07-22] MEDS: ASPIRIN 325 MG TABLET PO (08:43)
[2023-07-22 09:50] VITALS: BP 158/74; PULSE 60; RESP 18; TEMP 36.3; O2SAT 97
--- NOTE | 2023-07-22 10:12 | PCPTNOTE ---
Patient refused treatment this session due to sacral pain. Educated patient on the importance of therapy and mobility, patient continue to refuse.
[2023-07-22 11:55] LABS: Glucose Point of Care 322 mg/dl (65-105)
[2023-07-22 14:19] VITALS: BP 155/72; PULSE 50; RESP 18; TEMP 36.1; O2SAT 99
[2023-07-22 17:14] LABS: Glucose Point of Care 367 mg/dl (65-105)
[2023-07-22 19:31] VITALS: BP 175/81; PULSE 64; RESP 18; TEMP 36.4; O2SAT 100
[2023-07-22 21:24] LABS: Glucose Point of Care 312 mg/dl (65-105)
[2023-07-22] MEDS: INSULIN GLARGINE (*BKC) 100 UNITS/ML 15 UNITS SUB-Q (21:58)
[2023-07-22] MEDS: diphenhydrAMINE HCl CAP 25 MG CAPSULE PO (21:59)
[2023-07-22] MEDS: ATORVASTATIN 40 MG TABLET 80 MG PO (21:59)
[2023-07-22] MEDS: ACETAMINOPHEN 500 MG TABLET BY MOUTH (22:00)
[2023-07-23] VITALS (9 sets, daily range): BP systolic 134–153; BP diastolic 59–75; PULSE 46–70; RESP 12–18; TEMP 36.3–36.4; O2SAT 98–100
[2023-07-23] MEDS: DEXAMETHASONE SOD PHOS INJ 4 MG/ML VIAL IV PUSH ×3 (00:01→12:16)
[2023-07-23 01:40] LABS: Glucose Point of Care 288 mg/dl (65-105)
[2023-07-23] MEDS: INSULIN ASPART (*BKC) 100 UNITS/ML 6 UNITS SUB-Q (01:48)
[2023-07-23 06:00] LABS: Basophils Percent Auto 0.2 % (0.2-1.2); Hemoglobin 11.4 g/dL (14.0-18.0); Immature Granulocyte Absolute 0.37 K/mm3 (0.00-0.031); Immature Granulocyte Percent A 2.5 % (0-0.5); Lymphocytes Absolute Auto 0.78 K/mm3 (0.9-3.2); Lymphocytes Percent Auto 5.3 % (18.3-44.2); Mean Corpuscular HGB Conc 32.6 g/dl (32-36); Mean Corpuscular Hemoglobin 30.2 pg (26-34); Mean Corpuscular Volume 92.8 fl (80-100); Mean Platelet Volume 11.1 fl (7.4-10.4); Monocytes Absolute Auto 0.8 K/mm3 (0.1-0.6); Monocytes Percent Auto 5.4 % (2.6-8.5); Neutrophils Absolute Auto 12.7 K/mm3 (1.3-6.7); Neutrophils Percent Auto 86.6 % (45.5-73.1); Platelet Count Result 261 k/mm3 (150-375); Red Blood Count 3.77 M/mm3 (4.6-6.20); Red Cell Distribution Width 13.9 % (11.5-14.5); White Blood Count 14.7 K/mm3 (4.5-10.0)
[2023-07-23 06:07] LABS: Alanine Aminotransferase 63 U/L (6-50); Albumin Level 3.2 g/dL (3.5-5.1); Alkaline Phosphatase 123 U/L (38-126); Anion Gap 10 mmol/L (8-16); Aspartate Amino Transferase 31 U/L (17-59); Bilirubin,Total 0.7 mg/dL (0.2-1.3); Blood Urea Nitrogen 61 mg/dL (9-20); Calcium 8.5 mg/dL (8.4-10.2); Carbon Dioxide 22 mmol/L (22-30); Chloride 103 mmol/L (98-107); Estimated CRCL calculation 49 ml/min; Estimated Glomerular Filt Rate 59; Glucose 299 mg/dL (65-110); Potassium 4.9 mmol/L (3.4-5.0); Sodium 135 mmol/L (137-145)
[2023-07-23 08:52] LABS: Glucose Point of Care 262 mg/dl (65-105)
[2023-07-23] MEDS: INSULIN ASPART (*BKC) 100 UNITS/ML SUB-Q ×2 (08:56→12:16)
--- NOTE | 2023-07-23 08:59 | PM.IMPN ---
Progress Note: A&P Assessment and Plan (1) Generalized weakness: Code(s): R53.1 - Weakness Status: Acute Assessment and Plan: MRI of the cervical and lumbar spine severely abnormal, neurology and neurosurgery consults appreciated Plan for surgical decompression per NS 07/23 (2) Acute UTI: Code(s): N39.0 - Urinary tract infection, site not specified Status: Acute Assessment and Plan: Rocephin started 07/18, 07/20: Culture came back positive MRSA, d/c rocephin, initiate vancomycin (3) AMS (altered mental status): Code(s): R41.82 - Altered mental status, unspecified Status: Acute Assessment and Plan: Improving, monitor, multifactorial (4) GAYLE (acute kidney injury): Code(s): N17.9 - Acute kidney failure, unspecified Status: Acute Assessment and Plan: Hold lisinopril, IV fluids, monitor Creat stable Resolved (5) Hypoglycemia: Code(s): E16.2 - Hypoglycemia, unspecified Status: Acute Assessment and Plan: Hold home oral anti diabetics Hypoglycemia resolved, monitor Now hyperglycemic (6) Type 2 diabetes mellitus: Qualifiers: Diabetes mellitus complication status: with circulatory complication Diabetes mellitus extermination supervisor insulin use: with extermination supervisor use Code(s): E11.9 - Type 2 diabetes mellitus without complications Status: Acute Assessment and Plan: Blood glucose reviewed 07/23 Accu-Cheks sliding scale insulin Lantus 10 units started now, d/c after decadron d/c (7) Hypertension: Qualifiers: Hypertension type: secondary to endocrine disorders Qualified Code(s): I15.2 - Hypertension secondary to endocrine disorders Code(s): I10 - Essential (primary) hypertension Status: Acute Assessment and Plan: Blood pressure reviewed 07/23 Home lisinopril currently being held (8) Cerebrovascular accident: Code(s): I63.9 - Cerebral infarction, unspecified Status: Acute Assessment and Plan: Stable, monitor (9) Coronary artery disease: Qualifiers: Associated angina: without angina Coronary Disease-Associated Artery/Lesion type: [place] artery [place] vs. transplanted heart: [place] heart Qualified Code(s): I25.10 - Atherosclerotic heart disease of [place] coronary artery without angina pectoris Code(s): I25.10 - Atherosclerotic heart disease of [place] coronary artery without angina pectoris Status: Acute Assessment and Plan: Stable, monitor (10) Amputation of left foot: Code(s): S98.912A - Complete traumatic amputation of left foot, level unspecified, initial encounter Status: Acute (11) Status post transmetatarsal amputation of right foot: Code(s): Z89.431 - Acquired absence of right foot Status: Acute Plan DVT prophylaxis with SCDs GI prophylaxis not indicated Code status full code Subjective Date/time seen: 07/23/23 08:59 Interval history: 77-year-old male with history of diabetes, hypertension, bilateral foot amputations is presenting with altered mental status and currently being treated for a UTI as well as hypoglycemia, also found to have progressively worsening weakness requiring spinal decompression surgery, OR 07/23. No overnight events noted. No chest pain or shortness of breath. No nausea, vomiting or diarrhea. No fevers or chills. Review of Systems Review of Systems: 12 point review of systems was assessed and was negative except as noted in the HPI Exam Narrative: General: No acute distress, alert and oriented per baseline HEENT: Atraumatic, normocephalic, mucous membranes moist CV: Regular rate and rhythm, S1, S2 Lungs: Clear to auscultation bilaterally, no rales or crackles noted, no wheezes, good air entry Abdomen: Soft, nontender, nondistended Extremities: Normal to inspection Skin: No rashes noted, no lesions or wounds
[2023-07-23 12:06] LABS: Glucose Point of Care 252 mg/dl (65-105)
[2023-07-23 13:00] LABS: Vancomycin Trough 15.2 ug/mL (10.0-20.0)
--- NOTE | 2023-07-23 13:30 | PCOTNOTE ---
Attempted to see Patient at this time. Patient currently sleeping, Patients family present and declined services at this time. Patient is to go to surgery this P.M.
--- NOTE | 2023-07-23 14:00 | PC.NURSE ---
On 07/23/23, the student, [Daphnie Tomlinson], provided care and completed [facility] documentation on this patient. I have reviewed the student's documentation and agree with the findings.
--- NOTE | 2023-07-23 15:51 | WPDHPUPDATE1 ---
History and Physical Update Update Date/Time: 07/23/23 15:51 History and Physical has been reviewed, including an updated exam of the patient. There are NO changes in the patient's condition. Risks, benefits, and alternatives have been discussed and questions answered. Patient agrees to proceed with procedure.
[2023-07-23 16:54] LABS: Glucose Point of Care 229 mg/dl (65-105)
--- NOTE | 2023-07-23 18:32 | WPDANESEPPF ---
Anes - Initial Pre Proc Eval Procedure: Operation Date: 07/23/23 16:30 Proposed Procedures p C3-4, C4-5, C5-6 Anterior Cervical Discectomy and Fusion - Haroldo Martínez MD Date/Time: 07/23/23 18:32 Surgeon: Indy Lorenzo MD Pre Op Diagnosis: UTI, Persistent Hypoglycemia Patient Data Age: 77 Gender: M Height: 1.8 m Weight: 77.9 kg Last Vital Signs Temp 36.4 C L 07/23/23 17:32 Pulse 46 L 07/23/23 17:32 Resp 16 07/23/23 17:32 BP 148/59 H 07/23/23 17:32 Pulse Ox 100 07/23/23 17:32 O2 Del Method Room Air 07/23/23 17:32 Allergies Allergy/AdvReac Type Severity Reaction Status Date / Time amoxicillin [From Augmentin] AdvReac Vomiting Verified 07/23/23 16:54 clavulanic acid AdvReac Vomiting Verified 07/23/23 16:54 [From Augmentin] oxycodone AdvReac Other Verified 07/23/23 16:54 Home Medications Medication Instructions Recorded Confirmed Type atorvastatin 80 mg tablet 80 mg PO HS 05/15/23 07/18/23 History dapagliflozin propanediol 5 mg 20 mg PO HS 05/15/23 07/18/23 History tablet (Farxiga) gabapentin 400 mg capsule 400 mg PO HS PRN nerve pain 05/15/23 07/18/23 History glimepiride 4 mg tablet 4 mg PO HS 05/15/23 07/18/23 History lisinopril 5 mg tablet 5 mg PO HS 05/15/23 07/18/23 History aspirin 325 mg tablet 325 mg PO DAILY 07/18/23 07/18/23 History diphenhydramine 25 1 tablet PO HS 07/18/23 07/18/23 History mg-acetaminophen 500 mg tablet (Tylenol PM Extra Strength) tizanidine 2 mg tablet 2 mg PO HS PRN muscle spasms 07/18/23 07/18/23 History Laboratory Tests 07/22/23 07/23/23 07/23/23 21:19 01:36 05:05 WBC 14.7 H K/mm3 (4.5-10.0) RBC 3.77 L M/mm3 (4.6-6.20) Hgb 11.4 L g/dL (14.0-18.0) Hct 35.0 L % (42.0-52.0) MCV 92.8 fl (80-100) MCH 30.2 pg (26-34) MCHC 32.6 g/dl (32-36) RDW 13.9 % (11.5-14.5) Plt Count 261 k/mm3 (150-375) MPV 11.1 H fl (7.4-10.4) Immature Gran % (Auto) 2.5 H % (0-0.5) Neut % (Auto) 86.6 H % (45.5-73.1) Lymph % (Auto) 5.3 L % (18.3-44.2) [place] % (Auto) 5.4 % (2.6-8.5) Eos % (Auto) 0.0 % (0-4.4) Baso % (Auto) 0.2 % (0.2-1.2) Lymph # (Auto) 0.78 L K/mm3 (0.9-3.2) [place] # (Auto) 0.8 H K/mm3 (0.1-0.6) Eos # (Auto) 0.0 K/mm3 (0-0.3) Baso # (Auto) 0.0 K/mm3 (0.0-0.1) Abs Immat Gran (auto) 0.37 H K/mm3 (0.00-0.031) Absolute Neuts (auto) 12.7 H K/mm3 (1.3-6.7) Absolute Nucleated RBC 0.0 K/mm3 (0.0-0.012) Nucleated RBC % 0.0 % (0.0-0.2) Sodium 135 L mmol/L (137-145) Potassium 4.9 mmol/L (3.4-5.0) Chloride 103 mmol/L (98-107) Carbon Dioxide 22 mmol/L (22-30) Anion Gap 10 mmol/L (8-16) BUN 61 H mg/dL (9-20) Creatinine 1.20 mg/dL (0.7-1.3) Estim Creat Clear Calc 49 ml/min Estimated GFR 59 (59 - ) Glucose 299 H mg/dL (65-110) POC Capillary Glucose 312 H mg/dl 288 H mg/dl (65-105) (65-105) Calcium 8.5 mg/dL (8.4-10.2) Total Bilirubin 0.7 mg/dL (0.2-1.3) AST 31 U/L (17-59) ALT 63 H U/L (6-50) Alkaline Phosphatase 123 U/L (38-126) Total Protein 7.0 g/dL (6.3-8.2) Albumin 3.2 L g/dL (3.5-5.1) Vancomycin Trough 07/23/23 07/23/23 07/23/23 08:48 12:01 12:17 WBC RBC Hgb Hct MCV MCH MCHC RDW Plt Count MPV Immature Gran % (Auto) Neut % (Auto) Lymph % (Auto) [place] % (Auto) Eos % (Auto) Baso % (Auto) Lymph # (Auto) [place] # (Auto) E
[2023-07-23] MEDS: LIDO 1%/EPINEPHRINE 1:100,000 20 ML VIAL 10 ML INFILTRATE (20:42)
[2023-07-23] MEDS: VANCOMYCIN 1,250 MG/NS 250 ML 1,250 MG/250 ML BAG 166.67 MG IVPB (21:00)
[2023-07-23] MEDS: LACTATED RINGERS 1,000 ML 30 ML IV CONT (22:25)
[2023-07-23 22:51] LABS: Glucose Point of Care 252 mg/dl (65-105)
--- NOTE | 2023-07-23 23:20 | PC.NURSE ---
Pt arrived from surgery at 2319.
[2023-07-24] VITALS (8 sets, daily range): BP systolic 127–160; BP diastolic 42–83; PULSE 50–83; RESP 14–18; TEMP 35.6–36.8; O2SAT 94–100; BMI 11.0
--- NOTE | 2023-07-24 | ECHO_ITS ---
Patient Info Name: Santhosh Adler Age: 77 years : 1945 Gender: Male Ht: 71 in Wt: 171 lbs BSA: 1.97 m2 HR: 43 bpm BP: 160 / 83 mmHg Heart Rhythm: Indeterminant Technical Quality: Good Exam Date: 07/24/2023 3:25 PM Exam Location: [facility] Card Pulmonary Patient Status: Inpatient Admit Date: 07/20/2023 Staff Ordering Physician: Gomez Luis MD [employer] [place] Log: Francesca Bahena RDCS Attending Provider: Indy Lorenzo MD Exam Type: CA echo doppler color flow Study Info Indications - STAPH UTI Complete two-dimensional, color flow and Doppler transthoracic echocardiogram is performed. Summary 1. Complete two-dimensional, color flow and Doppler transthoracic echocardiogram is performed. 2. Left ventricular chamber dimension is mildly enlarged. 3. Left ventricular systolic function is at lower limits of normal, estimated at 50-55%. 4. There is mildly increased left ventricular wall thickness. 5. Right ventricular systolic function is normal. 6. Left atrial chamber dimension is mildly enlarged. 7. There is moderate mitral valve regurgitation. 8. There is mild tricuspid valve regurgitation. 9. Pulmonary hypertension. Estimated pulmonary arterial systolic pressure is 58 mmHg. 10. Cannot rule out bicuspid aortic valve. Left Ventricle Left ventricular chamber dimension is mildly enlarged. Left ventricular systolic function is at lower limits of normal, estimated at 50-55%. There is mildly increased left ventricular wall thickness. The left ventricular diastolic function is indeterminate. Right Ventricle Right ventricular chamber dimension is normal. Right ventricular systolic function is normal. Left Atria Left atrial chamber dimension is mildly enlarged. Right Atria Right atrial chamber dimension is normal. Atrial Septum Intact interatrial septum visualized by color flow imaging. Aortic Valve Cannot rule out bicuspid aortic valve. There is no aortic valve stenosis. There is no aortic valve regurgitation. There is moderate aortic valve calcification. Pulmonic Valve The pulmonic valve is not well visualized. There is trace pulmonic regurgitation. Mitral Valve The mitral valve has thickened leaflets. There is moderate mitral valve regurgitation. The mitral valve annulus is moderately calcified. Tricuspid Valve There is mild tricuspid valve regurgitation. Pulmonary hypertension. Estimated pulmonary arterial systolic pressure is 58 mmHg. Pericardium/Pleural There is no pericardial effusion. Inferior Vena Cava Dilated inferior vena cava with no collapse upon inspiration consistent with elevated right atrial pressure, 15 mmHg. Aorta The aortic root size at the sinus of Valsalva is normal. Left Ventricular Outflow Tract Name Value Normal LVOT 2D LVOT Diameter 2.1 cm LVOT Doppler LVOT Peak Gradient 3 mmHg LVOT Mean Gradient 1 mmHg LVOT VTI 16 cm LVOT VTI/AV VTI Ratio 0.7 LVOT Stroke Volume 56 ml LVOT CO 10.1 l/min LVOT CI 5.1 l/min/m2 Pulmonic Valve ----
--- NOTE | 2023-07-24 00:01 | PC.NURSE ---
Asked charge nurse, Giselle Knox, if pt should have medications still administered from 2100 bc diet was not changed from NPO. Charge nurse said diet must have not been addressed when orders put in and to give meds with sips of water only.
[2023-07-24] MEDS: INSULIN GLARGINE (*BKC) 100 UNITS/ML 10 UNITS SUB-Q ×2 (00:06→20:37)
[2023-07-24] MEDS: ATORVASTATIN 40 MG TABLET 80 MG PO ×2 (00:07→20:36)
[2023-07-24] MEDS: diphenhydrAMINE HCl CAP 25 MG CAPSULE PO ×2 (00:07→20:36)
[2023-07-24] MEDS: ACETAMINOPHEN 500 MG TABLET BY MOUTH ×2 (00:07→20:36)
[2023-07-24] MEDS: DEXAMETHASONE SOD PHOS INJ 4 MG/ML VIAL IV PUSH ×4 (00:08→17:21)
[2023-07-24 00:34] LABS: Glucose Point of Care 238 mg/dl (65-105)
[2023-07-24 05:30] LABS: Basophils Percent Auto 0.1 % (0.2-1.2); Hematocrit 32.6 % (42.0-52.0); Hemoglobin 10.8 g/dL (14.0-18.0); Immature Granulocyte Absolute 0.34 K/mm3 (0.00-0.031); Lymphocytes Absolute Auto 0.77 K/mm3 (0.9-3.2); Lymphocytes Percent Auto 4.5 % (18.3-44.2); Mean Corpuscular HGB Conc 33.1 g/dl (32-36); Mean Corpuscular Hemoglobin 30.5 pg (26-34); Mean Corpuscular Volume 92.1 fl (80-100); Mean Platelet Volume 10.9 fl (7.4-10.4); Monocytes Absolute Auto 0.8 K/mm3 (0.1-0.6); Monocytes Percent Auto 4.6 % (2.6-8.5); Neutrophils Absolute Auto 15.1 K/mm3 (1.3-6.7); Neutrophils Percent Auto 88.8 % (45.5-73.1); Platelet Count Result 211 k/mm3 (150-375); Red Blood Count 3.54 M/mm3 (4.6-6.20); Red Cell Distribution Width 13.8 % (11.5-14.5)
[2023-07-24 05:52] LABS: Alanine Aminotransferase 48 U/L (6-50); Albumin Level 2.9 g/dL (3.5-5.1); Alkaline Phosphatase 104 U/L (38-126); Anion Gap 6 mmol/L (8-16); Aspartate Amino Transferase 28 U/L (17-59); Bilirubin,Total 0.7 mg/dL (0.2-1.3); Blood Urea Nitrogen 54 mg/dL (9-20); Calcium 8.1 mg/dL (8.4-10.2); Carbon Dioxide 23 mmol/L (22-30); Chloride 107 mmol/L (98-107); Estimated CRCL calculation 53 ml/min; Estimated Glomerular Filt Rate > 60; Glucose 286 mg/dL (65-110); Sodium 136 mmol/L (137-145)
[2023-07-24 06:57] LABS: Platelet Estimate Adequate (Adequate)
[2023-07-24 06:58] LABS: Burr Cells 2+ (NORMAL); Ovalocytes 1+ (NORMAL); Poikilocytosis 1+ (NORMAL); Schistocytes Rare (NORMAL)
[2023-07-24 08:19] LABS: Glucose Point of Care 276 mg/dl (65-105)
[2023-07-24] MEDS: ASPIRIN 325 MG TABLET PO (08:28)
[2023-07-24] MEDS: INSULIN ASPART (*BKC) 100 UNITS/ML SUB-Q ×3 (08:31→16:56)
--- NOTE | 2023-07-24 10:25 | WPDANESPN ---
Anes - Prog Note Post-Op Date/Time: 07/24/23 10:25 Cardiovascular status: normal Respiratory status: normal Airway patency: baseline Mental status: baseline Post-Op hydration status: normal Vital Signs: Last Vital Signs Temp 36.5 C 07/24/23 05:19 Pulse 50 L 07/24/23 05:19 Resp 17 07/24/23 05:19 BP 127/54 L 07/24/23 05:19 Pulse Ox 94 07/24/23 05:19 O2 Del Method Room Air 07/24/23 09:16 O2 Flow Rate 6 07/23/23 22:25 Pain Score (VAS): 12/21 I/O: Intake & Output 07/23/23 07/24/23 07/24/23 23:59 07:59 15:59 Intake Total 330 250 240 Output Total 350 600 Balance -20 -350 240 Laboratory Tests 07/24/23 04:49 07/24/23 04:49 07/23/23 07/23/23 07/23/23 12:01 12:17 16:48 WBC RBC Hgb Hct MCV MCH MCHC RDW Plt Count MPV Immature Gran % (Auto) Neut % (Auto) Lymph % (Auto) [place] % (Auto) Eos % (Auto) Baso % (Auto) Lymph # (Auto) [place] # (Auto) Eos # (Auto) Baso # (Auto) Abs Immat Gran (auto) Absolute Neuts (auto) Absolute Nucleated RBC Nucleated RBC % Platelet Estimate Poikilocytosis Ovalocytes [place] Cells Schistocytes Sodium Potassium Chloride Carbon Dioxide Anion Gap BUN Creatinine Estim Creat Clear Calc Estimated GFR Glucose POC Capillary Glucose 252 H 229 H Calcium Total Bilirubin AST ALT Alkaline Phosphatase Total Protein Albumin Vancomycin Trough 15.2 07/23/23 07/23/23 07/24/23 22:48 23:48 04:49 WBC 17.0 H RBC 3.54 L Hgb 10.8 L Hct 32.6 L MCV 92.1 MCH 30.5 MCHC 33.1 RDW 13.8 Plt Count 211 MPV 10.9 H Immature Gran % (Auto) 2.0 H Neut % (Auto) 88.8 H Lymph % (Auto) 4.5 L [place] % (Auto) 4.6 Eos % (Auto) 0.0 Baso % (Auto) 0.1 L Lymph # (Auto) 0.77 L [place] # (Auto) 0.8 H Eos # (Auto) 0.0 Baso # (Auto) 0.0 Abs Immat Gran (auto) 0.34 H Absolute Neuts (auto) 15.1 H Absolute Nucleated RBC 0.0 Nucleated RBC % 0.0 Platelet Estimate Adequate Poikilocytosis 1+ Ovalocytes 1+ [place] Cells 2+ Schistocytes Rare Sodium 136 L Potassium 5.0 Chloride 107 Carbon Dioxide 23 Anion Gap 6 L BUN 54 H Creatinine 1.10 Estim Creat Clear Calc 53 Estimated GFR > 60 Glucose 286 H POC Capillary Glucose 252 H 238 H Calcium 8.1 L Total Bilirubin 0.7 AST 28 ALT 48 Alkaline Phosphatase 104 Total Protein 6.0 L Albumin 2.9 L Vancomycin Trough 07/24/23 08:12 WBC RBC Hgb Hct MCV MCH MCHC RDW Plt Count MPV Immature Gran % (Auto) Neut % (Auto) Lymph % (Auto) [place] % (Auto) Eos % (Auto) Baso % (Auto) Lymph # (Auto) [place] # (Auto) Eos # (Auto) Baso # (Auto) Abs Immat Gran (auto) Absolute Neuts (auto) Absolute Nucleated RBC Nucleated RBC % Platelet Estimate Poikilocytosis Ovalocytes [place] Cells Schistocytes Sodium Potassium Chloride Carbon Dioxide Anion Gap BUN Creatinine Estim Creat Clear Calc Estimated GFR Glucose POC Capillary Glucose 276 H Calcium Total Bilirubin AST ALT Alkaline Phosphatase Total Protein Albumin Vancomycin Trough Post-procedural complaints: none Patient Feedback: Patient satisfied with anesthetic care.
[2023-07-24 11:51] LABS: Glucose Point of Care 264 mg/dl (65-105)
--- NOTE | 2023-07-24 13:49 | PM.IMPN ---
Progress Note: A&P Assessment and Plan (1) Generalized weakness: Code(s): R53.1 - Weakness Status: Acute Assessment and Plan: MRI of the cervical and lumbar spine severely abnormal, neurology and neurosurgery consults appreciated Patient underwent surgical decompression per NS 07/23 and tolerated the procedure well. Continue PT and OT. (2) Cervical stenosis of spinal canal: Code(s): M48.02 - Spinal stenosis, cervical region Status: Acute Assessment and Plan: As above (3) Acute UTI: Code(s): N39.0 - Urinary tract infection, site not specified Status: Acute Assessment and Plan: UA is consistent with UTI. Rocephin started 07/18. Blood cultures were not collected on admission but collected on 07/20 and are no growth to date. Urine culture growing MRSA on 07/20. Rocephin stopped and vancomycin started. Day 5 of vancomycin. Check echocardiogram. Consider repeating blood cultures off antibiotics. (4) AMS (altered mental status): Code(s): R41.82 - Altered mental status, unspecified Status: Acute Assessment and Plan: Patient with altered mental status felt to be multifactorial. Symptoms are better. Continue to monitor. (5) Type 2 diabetes mellitus: Qualifiers: Diabetes mellitus truck terminal manager insulin use: with truck terminal manager use Diabetes mellitus complication status: with circulatory complication Code(s): E11.9 - Type 2 diabetes mellitus without complications Status: Acute Assessment and Plan: A1c 6.5. The patient's blood glucose was reviewed on 07/24 Glucose remains well controlled. Continue AccuCheks covering with sliding scale. Hypoglycemia protocol available as needed. Continue to monitor (6) Hypertension: Qualifiers: Hypertension type: secondary to endocrine disorders Qualified Code(s): I15.2 - Hypertension secondary to endocrine disorders Code(s): I10 - Essential (primary) hypertension Status: Acute Assessment and Plan: Patient's blood pressure was reviewed on 07/24 Blood pressure remains well controlled. Will continue to monitor (7) Cerebrovascular accident: Code(s): I63.9 - Cerebral infarction, unspecified Status: Acute Assessment and Plan: Patient has a history CVA. Continue aspirin and Lipitor. (8) Coronary artery disease: Qualifiers: Coronary Disease-Associated Artery/Lesion type: [place] artery [place] vs. transplanted heart: [place] heart Associated angina: without angina Qualified Code(s): I25.10 - Atherosclerotic heart disease of [place] coronary artery without angina pectoris Code(s): I25.10 - Atherosclerotic heart disease of [place] coronary artery without angina pectoris Status: Acute Assessment and Plan: Stable. Continue medical management. (9) GAYLE (acute kidney injury): Code(s): N17.9 - Acute kidney failure, unspecified Status: Acute Assessment and Plan: BUN climbed to 61. Creatinine is 1.5 and has trended down to 1.1 today. BUN elevated related to steroids. Acute kidney injury has resolved. Continue to hold lisinopril. IV fluids have been stopped. (10) Hypoglycemia: Code(s): E16.2 - Hypoglycemia, unspecified Status: Acute Assessment and Plan: Resolved Plan DVT prophylaxis with SCDs GI prophylaxis Protonix Code status full code Subjective Date/time seen: 07/24/23 13:49 Interval history: 77-year-old male with history of diabetes, hypertension, bilateral foot amputations is presenting with altered mental status and currently being treated for a UTI as well as hypoglycemia, also found to have progressively worsening weakness requiring spinal decompression surgery, OR 07/23. Assuming care. Chart reviewed. Patient states his neck feels ?stiff? but pain is well controlled. He has been working with therapy since the surgery. No n
[2023-07-24] MEDS: PANTOPRAZOLE 40 MG TABLET PO (14:34)
[2023-07-24] MEDS: ACETAMINOPHEN 325 MG TABLET 650 MG PO (14:58)
[2023-07-24 16:52] LABS: Glucose Point of Care 222 mg/dl (65-105)
[2023-07-24 19:54] LABS: Glucose Point of Care 210 mg/dl (65-105)
[2023-07-24] MEDS: GABAPENTIN 400 MG CAPSULE PO (20:35)
[2023-07-24] MEDS: TIZANIDINE HCL 2 MG TABLET PO (20:36)
[2023-07-24] MEDS: VANCOMYCIN 1,250 MG/NS 250 ML 1,250 MG/250 ML BAG 166.67 MG IVPB (20:36)
[2023-07-25] VITALS (7 sets, daily range): BP systolic 108–154; BP diastolic 40–64; PULSE 50–60; RESP 15–18; TEMP 35.8–37.1; O2SAT 97–100
[2023-07-25] MEDS: DEXAMETHASONE SOD PHOS INJ 4 MG/ML VIAL IV PUSH ×3 (01:44→11:54)
[2023-07-25 06:09] LABS: Basophils Percent Auto 0.1 % (0.2-1.2); Hematocrit 31.1 % (42.0-52.0); Hemoglobin 10.2 g/dL (14.0-18.0); Immature Granulocyte Absolute 0.25 K/mm3 (0.00-0.031); Immature Granulocyte Percent A 1.8 % (0-0.5); Lymphocytes Absolute Auto 1.02 K/mm3 (0.9-3.2); Lymphocytes Percent Auto 7.2 % (18.3-44.2); Mean Corpuscular HGB Conc 32.8 g/dl (32-36); Mean Corpuscular Hemoglobin 30.6 pg (26-34); Mean Corpuscular Volume 93.4 fl (80-100); Mean Platelet Volume 11.1 fl (7.4-10.4); Monocytes Absolute Auto 0.7 K/mm3 (0.1-0.6); Monocytes Percent Auto 4.6 % (2.6-8.5); Neutrophils Absolute Auto 12.3 K/mm3 (1.3-6.7); Neutrophils Percent Auto 86.3 % (45.5-73.1); Platelet Count Result 189 k/mm3 (150-375); Red Blood Count 3.33 M/mm3 (4.6-6.20); White Blood Count 14.2 K/mm3 (4.5-10.0)
[2023-07-25 06:21] LABS: Alanine Aminotransferase 40 U/L (6-50); Albumin Level 2.8 g/dL (3.5-5.1); Alkaline Phosphatase 83 U/L (38-126); Anion Gap 4 mmol/L (8-16); Aspartate Amino Transferase 24 U/L (17-59); Bilirubin,Total 0.8 mg/dL (0.2-1.3); Blood Urea Nitrogen 54 mg/dL (9-20); Carbon Dioxide 24 mmol/L (22-30); Chloride 108 mmol/L (98-107); Estimated CRCL calculation 45 ml/min; Estimated Glomerular Filt Rate 54; Glucose 195 mg/dL (65-110); Sodium 136 mmol/L (137-145)
[2023-07-25] MEDS: ASPIRIN 325 MG TABLET PO (08:02)
[2023-07-25] MEDS: PANTOPRAZOLE 40 MG TABLET PO (08:02)
[2023-07-25] MEDS: FLUTICASONE PROPIONATE 0.05% NA SPR 16 GM BTL (*BKC) 1 SPRAY NASAL ×2 (08:03→21:04)
[2023-07-25 08:27] LABS: Glucose Point of Care 196 mg/dl (65-105)
--- NOTE | 2023-07-25 11:48 | PM.IMPN ---
Progress Note: A&P Assessment and Plan (1) Generalized weakness: Code(s): R53.1 - Weakness Status: Acute Assessment and Plan: MRI of the cervical and lumbar spine severely abnormal, neurology and neurosurgery consults appreciated Patient underwent surgical decompression per NS 07/23 and tolerated the procedure well. He remains on Decadron. Call out to neurosurgery about duration or if can be stopped. Activity level per neurosurgery Continue PT and OT. (2) Cervical stenosis of spinal canal: Code(s): M48.02 - Spinal stenosis, cervical region Status: Acute Assessment and Plan: As above (3) Acute UTI: Code(s): N39.0 - Urinary tract infection, site not specified Status: Acute Assessment and Plan: UA is consistent with UTI. Rocephin started 07/18. Blood cultures were not collected on admission but collected on 07/20 and are no growth to date. Urine culture growing MRSA on 07/20 so Rocephin stopped and vancomycin started. Day 6 of vancomycin. Murmur noted. Echocardiogram pending. Consider repeating blood cultures off antibiotics. (4) GAYLE (acute kidney injury): Code(s): N17.9 - Acute kidney failure, unspecified Status: Acute Assessment and Plan: BUN climbed to 61. Creatinine is 1.5 and has trended down to 1.1. BUN elevated related to steroids. Acute kidney injury has resolved. Cr up today to 1.3 Continue to hold lisinopril. IV fluids have been stopped. Follow (5) AMS (altered mental status): Code(s): R41.82 - Altered mental status, unspecified Status: Acute Assessment and Plan: Patient with altered mental status felt to be multifactorial. Symptoms are better. Continue to monitor. (6) Type 2 diabetes mellitus: Qualifiers: Diabetes mellitus complication status: with circulatory complication Diabetes mellitus usp insulin use: with watermaster use Code(s): E11.9 - Type 2 diabetes mellitus without complications Status: Acute Assessment and Plan: A1c 6.5. The patient's blood glucose was reviewed on 07/25 Glucose elevated but better overall. Continue AccuCheks covering with sliding scale. Hypoglycemia protocol available as needed. Continue to monitor. advance Lantus unless we stop seroids. (7) Hypertension: Qualifiers: Hypertension type: secondary to endocrine disorders Qualified Code(s): I15.2 - Hypertension secondary to endocrine disorders Code(s): I10 - Essential (primary) hypertension Status: Acute Assessment and Plan: Patient's blood pressure was reviewed on 07/25 Blood pressure remains well controlled. Will continue to monitor (8) Cerebrovascular accident: Code(s): I63.9 - Cerebral infarction, unspecified Status: Acute Assessment and Plan: Patient has a history CVA. Continue aspirin and Lipitor. (9) Coronary artery disease: Qualifiers: Associated angina: without angina Coronary Disease-Associated Artery/Lesion type: [place] artery [place] vs. transplanted heart: [place] heart Qualified Code(s): I25.10 - Atherosclerotic heart disease of [place] coronary artery without angina pectoris Code(s): I25.10 - Atherosclerotic heart disease of [place] coronary artery without angina pectoris Status: Acute Assessment and Plan: Stable. Continue medical management. (10) Hypoglycemia: Code(s): E16.2 - Hypoglycemia, unspecified Status: Acute Assessment and Plan: Resolved Plan DVT prophylaxis with SCDs GI prophylaxis Protonix Code status full code Subjective Date/time seen: 07/25/23 11:48 Interval history: 77-year-old male with history of diabetes, hypertension, bilateral foot amputations is presenting with altered mental status and currently being treated for a UTI as well as hypoglycemia, also found to have progressively worsening weakness requiring
[2023-07-25 12:09] LABS: Glucose Point of Care 278 mg/dl (65-105)
[2023-07-25] MEDS: INSULIN ASPART (*BKC) 100 UNITS/ML SUB-Q ×2 (12:12→17:22)
[2023-07-25 17:09] LABS: Glucose Point of Care 222 mg/dl (65-105)
[2023-07-25] MEDS: MELATONIN 3 MG TABLET PO (21:04)
[2023-07-25] MEDS: SULFAMETHOXAZOLE/TRIMETHOPRIM 800/160 MG DS TABLET 1 TAB PO (21:04)
[2023-07-25] MEDS: ATORVASTATIN 40 MG TABLET 80 MG PO (21:04)
--- NOTE | 2023-07-25 22:58 | WPDNEUROSGPN ---
Subjective Date/time seen: 07/25/23 22:58 Interval history: Santhosh is postop day 2 status post C3 to 5 anterior cervical diskectomy and fusion for spinal cord compression and myelopathy. He is about the same as he has been. He is not having a significant amount of pain. His voice is strong. He is able to swallow. He continues have a Santillan catheter in place. Continues to be weak in his upper and lower extremities and essentially nonambulatory. I agree with plans to send him to a alf facility. He has for free from my standpoint to be discharged to such facility when arrangements can be made. He should follow up with me in 6 weeks. Objective Data Vital Signs Vital Signs: Vital Signs - 24 hr 07/25/23 00:00 07/25/23 04:00 07/25/23 07:40 Temperature 98.7 F 97.9 F Pulse Rate 57 L 54 L Respiratory Rate 18 18 18 Blood Pressure 118/42 L 108/40 L Pulse Oximetry 98 99 99 Oxygen Delivery Room Air 07/25/23 10:00 07/25/23 14:37 07/25/23 16:00 Temperature 97.6 F 97.8 F 96.5 F L Pulse Rate 60 50 L 50 L Respiratory Rate 15 16 15 Blood Pressure 143/53 H 117/49 L 154/64 H Pulse Oximetry 97 97 100 Oxygen Delivery 07/25/23 20:00 Temperature 96.9 F L Pulse Rate 50 L Respiratory Rate 18 Blood Pressure 137/56 L Pulse Oximetry 100 Oxygen Delivery Intake/Output Intake/Output: Intake & Output 07/22/23 07/23/23 07/24/23 07/25/23 23:59 23:59 23:59 23:59 Intake Total 6747 993 1350 1030 Output Total 3558 647 7160 1250 Balance 380 -170 -110 -220 Meds/Results Medications: Active Medications Generic Name Dose Route Start Last Admin Trade Name Freq PRN Reason Stop Dose Admin Acetaminophen 650 mg 07/18/23 21:20 07/24/23 14:58 Acetaminophen 325 Mg Tablet PO 650 mg Q4H PRN Administration Mild Pain (1-3) or Fever Aspirin 325 mg 07/19/23 08:00 07/25/23 08:02 Aspirin 325 Mg Tablet PO 325 mg DAILY@0800 SARAH BETH Administration Atorvastatin Calcium 80 mg 07/18/23 23:25 07/25/23 21:04 Atorvastatin 40 Mg Tablet PO 80 mg HS SARAH BETH Administration Dextrose 12.5 gm 07/18/23 16:51 07/18/23 18:51 Dextrose 50% 25 Gm/50 Ml Syringe IV PUSH 12.5 gm PRN PRN Administration Hypoglycemia Protocol Fluticasone Propionate 1 spray 07/25/23 09:00 07/25/23 21:04 Fluticasone Propionate 0.05% Na Spr 16 Gm Btl (*Bkc) NASAL 1 spray Q12HR SARAH BETH Administration Gabapentin 400 mg 07/18/23 23:09 07/24/23 20:35 Gabapentin 400 Mg Capsule PO 400 mg HS PRN Administration nerve pain Glucagon 1 mg 07/18/23 16:51 Glucagon For Inj 1 Mg Vial IM PRN PRN Hypoglycemia Protocol Glucose 15 gm 07/18/23 16:51 Glucose Oral Gel 15 Gm Of Glucse In 37.5 Gm Tube PO PRN PRN Hypoglycemia Protocol Dextrose 1,000 mls @ 100 mls/hr 07/18/23 20:42 Dextrose 5% 1,000 Ml IVPB PRN PRN Hypoglycemia Protocol Insulin Aspart 4 - 8 units 07/22/23 08:00 07/25/23 17:22 Insulin Aspart (*Bkc) 100 Units/Ml SUB-Q 4 units TIDWM SARAH BETH Administration Protocol Melatonin 3 mg 07/25/23 21:00 07/25/23 21:04 Melatonin 3 Mg Tablet PO 3 mg HS SARAH BETH Administration Miconazole Nitrate 1 applic 07/19/23 09:00 07/25/23 21:04 Miconazole 2% Antifungal Ointment 56 Gm TOPICAL 1 applic Q12HR SARAH BETH Administration Morphine Sulfate 4 mg 07/23/23 23:10 Morphine Sulfate (*Crx) 4 Mg/Ml Inj IV PUSH Q4H PRN Pain Rated 7-10 Ondansetron HCl 4 mg 07/18/23 21:20 Ondansetron Inj 4 Mg/2 Ml Vial IV PUSH Q4H PRN Nausea Pantoprazole Sodium 40 mg 07/25/23 09:00 07/25/23 08:02 Pantoprazole 40 Mg Tablet PO 40 mg QAM SARAH BETH Administration Perflutren Lipid Microsphere 0 ml 07/24/23 13:59 Perflutren Lipid Microspheres 1.5 Ml Vial Diluted To 10 Ml Total Volume IV PUSH 07/27/23 13:59 ONCE PRN adequate visualization Protocol Tizanidine HCl 2 mg 07/18/23 23:09 07/24/23 20:36
[2023-07-26] VITALS: BP 130/59; PULSE 48; RESP 18; TEMP 36.1; O2SAT 98
[2023-07-26 04:00] VITALS: BP 134/54; PULSE 52; RESP 18; TEMP 36; O2SAT 96
[2023-07-26 04:54] LABS: Glucose Point of Care 219 mg/dl (65-105)
[2023-07-26 06:18] LABS: Basophils Percent Auto 0.2 % (0.2-1.2); Eosinophils Percent Auto 0.2 % (0-4.4); Hematocrit 31.5 % (42.0-52.0); Hemoglobin 10.5 g/dL (14.0-18.0); Immature Granulocyte Absolute 0.32 K/mm3 (0.00-0.031); Immature Granulocyte Percent A 1.8 % (0-0.5); Lymphocytes Absolute Auto 1.39 K/mm3 (0.9-3.2); Lymphocytes Percent Auto 7.9 % (18.3-44.2); Mean Corpuscular HGB Conc 33.3 g/dl (32-36); Mean Corpuscular Hemoglobin 30.5 pg (26-34); Mean Corpuscular Volume 91.6 fl (80-100); Mean Platelet Volume 11.3 fl (7.4-10.4); Monocytes Absolute Auto 0.8 K/mm3 (0.1-0.6); Monocytes Percent Auto 4.5 % (2.6-8.5); Neutrophils Percent Auto 85.4 % (45.5-73.1); Platelet Count Result 197 k/mm3 (150-375); Red Blood Count 3.44 M/mm3 (4.6-6.20); White Blood Count 17.6 K/mm3 (4.5-10.0)
[2023-07-26 06:26] LABS: Alanine Aminotransferase 36 U/L (6-50); Albumin Level 2.9 g/dL (3.5-5.1); Alkaline Phosphatase 82 U/L (38-126); Anion Gap 3 mmol/L (8-16); Aspartate Amino Transferase 24 U/L (17-59); Bilirubin,Total 0.9 mg/dL (0.2-1.3); Blood Urea Nitrogen 51 mg/dL (9-20); Carbon Dioxide 24 mmol/L (22-30); Chloride 109 mmol/L (98-107); Estimated CRCL calculation 53 ml/min; Estimated Glomerular Filt Rate > 60; Glucose 178 mg/dL (65-110); Potassium 4.7 mmol/L (3.4-5.0); Sodium 136 mmol/L (137-145)
[2023-07-26 08:00] VITALS: BP 130/56; PULSE 54; RESP 18; TEMP 36.4; O2SAT 96
[2023-07-26 08:19] LABS: Glucose Point of Care 172 mg/dl (65-105)
[2023-07-26] MEDS: ASPIRIN 325 MG TABLET PO (08:40)
[2023-07-26] MEDS: SULFAMETHOXAZOLE/TRIMETHOPRIM 800/160 MG DS TABLET 1 TAB PO (08:40)
[2023-07-26] MEDS: FLUTICASONE PROPIONATE 0.05% NA SPR 16 GM BTL (*BKC) 1 SPRAY NASAL (08:40)
[2023-07-26] MEDS: PANTOPRAZOLE 40 MG TABLET PO (08:40)
--- NOTE | 2023-07-26 10:34 | PCNWS ---
Weekly nutritional screen. Patient is tolerating current diet. No weight loss reported. No nutritional needs at this time.
--- NOTE | 2023-07-26 11:03 | PM.DS ---
DS: Admitting Diagnosis Discharge Date 07/26/23 Admitting Diagnosis Progressive weakness DS: Discharge Diagnosis Discharge Diagnosis (1) Generalized weakness: Code(s): R53.1 - Weakness Status: Acute (2) Cervical stenosis of spinal canal: Code(s): M48.02 - Spinal stenosis, cervical region Status: Acute (3) Acute UTI: Code(s): N39.0 - Urinary tract infection, site not specified Status: Acute (4) GAYLE (acute kidney injury): Code(s): N17.9 - Acute kidney failure, unspecified Status: Acute (5) AMS (altered mental status): Code(s): R41.82 - Altered mental status, unspecified Status: Acute (6) Type 2 diabetes mellitus: Qualifiers: Diabetes mellitus tank terminal gauger insulin use: with chcf use Diabetes mellitus complication status: with circulatory complication Code(s): E11.9 - Type 2 diabetes mellitus without complications Status: Acute (7) Hypertension: Qualifiers: Hypertension type: secondary to endocrine disorders Qualified Code(s): I15.2 - Hypertension secondary to endocrine disorders Code(s): I10 - Essential (primary) hypertension Status: Acute (8) Cerebrovascular accident: Code(s): I63.9 - Cerebral infarction, unspecified Status: Acute (9) Coronary artery disease: Qualifiers: Coronary Disease-Associated Artery/Lesion type: [place] artery [place] vs. transplanted heart: [place] heart Associated angina: without angina Qualified Code(s): I25.10 - Atherosclerotic heart disease of [place] coronary artery without angina pectoris Code(s): I25.10 - Atherosclerotic heart disease of [place] coronary artery without angina pectoris Status: Acute (10) Hypoglycemia: Code(s): E16.2 - Hypoglycemia, unspecified Status: Acute DS: Summary Hospital Course Reason for hospitalization: 77-year-old male with history of diabetes, hypertension, bilateral foot amputations is presenting with altered mental status and currently being treated for a UTI as well as hypoglycemia, also found to have progressively worsening weakness requiring spinal decompression surgery, OR 07/23. Please see H&P for details. Hospital Course: Patient presents with weakness. MRI of the cervical and lumbar spine were severely abnormal (please see report for details). Neurology and neurosurgery consults obtained. Patient underwent surgical cervical decompression per NS 07/23 and tolerated the procedure well. He was treated with Decadron which was continued postoperatively. Patient worked with PT and OT. UA is consistent with UTI.? Rocephin started 07/18.? Blood cultures were not collected on admission but collected on 07/20 and are no growth to date.? Urine culture growing MRSA on 07/20 so Rocephin stopped and vancomycin started.?Echocardiogram shows EF of 50-55% with moderate MR and pulmonary hypertension.? Cannot rule out bicuspid aortic valve but there was no aortic stenosis or aortic regurgitation.? No obvious vegetations noted. BUN climbed to 61.? Creatinine is 1.5 and has trended down to 1.1.? BUN elevated related to steroids.? Acute kidney injury has resolved. Patient with altered mental status felt to be multifactorial.? Symptoms are better.? A1c 6.5.? The patient's blood glucose was low on admission but then elevated due to steroids. He was monitored with AccuCheks covering with sliding scale.? Hypoglycemia protocol was available as needed.?Plan to stop Amaryl and hold Farxiga. Patient has a history CVA.? We continued aspirin and Lipitor. Neurology did recommend Plavix but felt that his AMS related to UTI and hypoglycemia and he has recent surgery so this was held. BP stable so we held his lisinopril. He overall did well and was able to be discharged on 07/26/23 to rehab Status at Discharge Cognitive/behavioral status at discharge: stable Time Spent with Patient Time attestation: Total time spent providi
[2023-07-26 11:53] LABS: Glucose Point of Care 178 mg/dl (65-105)
[2023-07-26 12:00] VITALS: BP 132/58; PULSE 55; RESP 18; TEMP 36.4; O2SAT 96
--- NOTE | 2023-07-29 16:11 | W.PM.PROC2 ---
Procedure Note - Detailed Date of Procedure 07/23/23 Pre-op Diagnosis Spinal stenosis with myelopathy Post-op Diagnosis Same Procedure Performed C3-4 and C4-5 anterior cervical diskectomy and fusion Surgeon Haroldo Martínez MD Anesthesia General Description of Procedure the patient was brought to the operating room in the supine position, was sedated, intubated placed under general anesthesia in routine fashion. the area of operation on his neck was examined, marked for incision, prepped and draped in routine sterile fashion. Incision was marked from the midline over the medial aspect of the sternocleidomastoid muscle in curvilinear transverse fashion 2 fingerbreadths above the sternal notch. This area was injected with 0.5% lidocaine with [id number] epinephrine. Intravenous antibiotics given prior to incision. Incision was made with a 10 blade scalpel down to the platysma muscle. The skin was undermined the platysma muscle was divided longitudinally with its fibers using Metzenbaum scissors. Plane was then dissected medial to the sternocleidomastoid muscle down to the anterior aspect of spine using finger and Metzenbaum scissors. A verifying x-rays obtained to verify the level of operation. The longus colli muscle was dissected free of the anterior aspect of the spine in a subperiosteal plane using Bovie cautery. Um Shadow Line retractor system was placed. Bertin pins were placed in C3-3 and C5 and distraction placed over both disc spaces simultaneously. Diskectomy and arthrodesis procedures were performed identically at each level. The disc spaces entered using a 15 blade scalpel cutting along the margin of the bone above and below. Curved curette pituitary rongeur were used to remove as much cartilaginous endplate and disc material as possible down to the annulus and ligament posteriorly. Midas-Ashish drill was used to bur down the endplates to bleeding cortical flat surfaces as well as to begin a bony foraminotomy bilaterally. The annulus and ligament were interrupted using a curved curette. A 2. Kerrison punch was used to remove annulus, ligament and posterior osteophyte into complete a bony foraminotomy bilaterally. This was done until a nerve hook could be placed out each foramen to confirm lack of compression. Disc spaces were then sized an appropriately sized interbody devices were chosen and filled with local autograft bone. these were then tamped into the interspace to 1-2 mm countersink. The Bertin pins were removed. Anterior cervical plate was chosen placed in position and secured using 614 x 4 mm anterior screws advance into the locking mechanism of the plate to hand tightness. At the bottom 1 of the screws could not be placed and only 1 screw was placed in to see 5. This was because of poor contact with the bone and the irregular Um contour of the anterior aspect of the spine. The locking mechanism was engaged each screw. Verifying x-rays obtained to verify good position of the instrumentation which was confirmed. The wound was then copiously irrigated with bacitracin irrigation all bleeding stopped with bipolar Bovie cautery and Gelfoam thrombin powder. The wound was then closed in layered fashion with 3-0 Vicryl buried interrupted sutures in the platysma muscle and in the dermis. The skin was closed with a running 4-0 Monocryl subcuticular stitch and dressed with Dermabond. The patient was then allowed to wake up in the operating room and was taken to the recovery room in stable condition. There were no immediate complications of this operation. All counts were reported correct in the case. Blood loss was 50 cc. The patient was neurologically at his baseline postoperatively. Estimated Blood Loss 50 IV Fluids 1,000 Urine Output 350 Complications None Condition Stable Disposition PACU [facility] Billing Surgery - Charge Forward: Surgery Billing
== END 2023-07-26 14:52 | DRG 471 ==
LOC: ANHED 21:26 → ANHIMU 21:57 → ANH2MED 07-19 17:16
PROVIDERS: Emergency Medicine; Neurological Surgery; Student in an Organized Health Care Education/Training Program; Admitting Provider Internal Medicine; Emergency Provider Physician Assistant; Visit Provider Internal Medicine
PROC: 0RG20A0 Fusion of 2 or more Cervical Vertebral Joints with Interbody Fusion Device, Anterior Approach, Anterior Column, Open Approach (ICD-10-PCS; CPT 63030; principal; 2023-07-23 16:30)
DX: M48.02 Spinal stenosis, cervical region (principal); G93.41 Metabolic encephalopathy; N39.0 Urinary tract infection, site not specified; N17.9 Acute kidney failure, unspecified; B95.62 Methicillin resistant Staphylococcus aureus infection as the cause of diseases classified elsewhere; E11.649 Type 2 diabetes mellitus with hypoglycemia without coma; M43.12 Spondylolisthesis, cervical region; I15.2 Hypertension secondary to endocrine disorders; I25.10 Atherosclerotic heart disease of native coronary artery without angina pectoris; E11.65 Type 2 diabetes mellitus with hyperglycemia; I65.21 Occlusion and stenosis of right carotid artery; F17.210 Nicotine dependence, cigarettes, uncomplicated; Z86.73 Personal history of transient ischemic attack (TIA), and cerebral infarction without residual deficits; Z95.1 Presence of aortocoronary bypass graft; Z89.431 Acquired absence of right foot; Z89.432 Acquired absence of left foot; Z98.1 Arthrodesis status
CPT/HCPCS: 36415; 71046; 72141; 72148; 80048; 80053; 80202; 81001; 82948; 83036; 85025; 85055; 87040; 87077; 87086; 87088; 87186; 93005; 93306; 96365; 96367; 96375; 96376; 97110; 97163; 97164; 97165; 97167; 97530; 99199; 99285; A9270; C1713; G0378; J0696; J1100; J1815; J2270; J3370; J7120

== ENCOUNTER 2023-08-03 00:54 | Inpatient (IN) | payer MEDICARE, SELFPAY ==
[2023-08-03] VITALS (17 sets, daily range): BP systolic 122–153; BP diastolic 59–74; PULSE 57–75; RESP 16–28; TEMP 36.1–36.5; O2SAT 95–100; BMI 23.1
--- NOTE | ~2023-08-03 | XR_ITS ---
EXAMINATION: XR chest PICC line Exam Date/Time: 08/05/2023 18:35 CDT HISTORY: PICC line placement Comparison: 08/03/2023. RESULT: Lines, tubes, and devices: New right upper extremity PICC terminating in the SVC. ACDF hardware. Int act sternotomy wires. Lungs and pleura: Slightly improved right mid and lower lung aeration. Increased segmental/lobar con solidation in the left lower lung. Mild left and moderate right costophrenic angle blunting. Stable d iffuse reticular opacities. Cardiomediastinal silhouette: Stable. Other: No acute osseous or upper abdominal finding. IMPRESSION: New right upper extremity PICC, in good position. Worsening atelectasis/consolidation in the left low er lung. Stable mild interstitial edema. Moderate right and small left pleural effusions. Reviewed, dictated and finalized at [facility]. IMPRESSION: New right upper extremity PICC, in good position. Worsening atelectasis/consoli dation in the left lower lung. Stable mild interstitial edema. Moderate right a nd small left pleural effusions.
--- NOTE | ~2023-08-03 | MR_ITS ---
EXAMINATION: MR brain/brain stem wo con DATE: 08/06/2023 14:03 INDICATION: Altered mental status. Confusion. TECHNIQUE: Magnetic resonance imaging (MRI) of the brain and brainstem was performed without intraven ous contrast. COMPARISON: Brain MRI 05/15/2023, head CT 05/16/23, CTA 05/16/23 FINDINGS: There are small old infarct in left cerebellum. There are old infarcts involving the right basal ganglia, right insula, and right frontoparietal region. There is an old infarct in the left bas al ganglia. There are scattered areas of nonspecific increased T2-weighted signal intensity in the ce rebral white matter, which is within normal limits for the patient's age. There is no intracranial he morrhage, acute infarction, or abnormal intracranial mass lesion. The ventricles are normal in size. There are likely changes of ocular lens replacement surgeries. The paranasal sinuses are clear. The m astoid air cells are normal. 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 IMPRESSION: 1. Old infarcts in the brain. 2. 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 Reviewed, dictated and finalized at location A.
--- NOTE | ~2023-08-03 | XR_ITS ---
EXAMINATION: XR chest 1V portable Exam Date/Time: 08/03/2023 17:10 CDT HISTORY: Hypoxia Comparison: 07/18/2023. RESULT: Lines, tubes, and devices: ACDF hardware. Intact sternotomy wires. Mediastinal surgical clips. Lungs and pleura: Minimal left and mild-moderate right costophrenic angle blunting. Increasing bibas ilar airspace disease. Mild diffuse reticular opacities. Cardiomediastinal silhouette: Stable. Other: No acute osseous or upper abdominal finding. IMPRESSION: Interstitial edema. Increasing bibasilar atelectasis/consolidation. Small-moderate right and likely s mall left pleural effusions. Reviewed, dictated and finalized at location K. IMPRESSION: Interstitial edema. Increasing bibasilar atelectasis/consolidation. Small-moder ate right and likely small left pleural effusions.
--- NOTE | 2023-08-03 00:24 | PM.IMHP ---
H&P: HPI History of Present Illness Date/Time: 08/03/23 00:24 Chief Complaint: patient transferred from [facility] for treatment of urosepsis and higher level of care in our hospital Narrative: He is a very unfortunate gentleman with multiple chronic medical issues who was recently discharged from our hospital. Patient had spinal decompression surgery done on 07/23/23. Please see the discharge summary as below: DS: Summary ... 07/26/2023 Hospital Course Reason for hospitalization: 77-year-old male with history of diabetes, hypertension, bilateral foot amputations is presenting with altered mental status and currently being treated for a UTI as well as hypoglycemia, also found to have progressively worsening weakness requiring spinal decompression surgery, OR 07/23. Please see H&P for details. Hospital Course: Patient presents with weakness.? MRI of the cervical and lumbar spine were severely abnormal (please see report for details). Neurology and neurosurgery consults obtained. Patient underwent surgical cervical decompression per NS 07/23 and tolerated the procedure well.? He was treated with Decadron which was continued postoperatively.? Patient worked with PT and OT. UA is consistent with UTI.? Rocephin started 07/18.? Blood cultures were not collected on admission but collected on 07/20 and are no growth to date.? Urine culture growing MRSA on 07/20 so Rocephin stopped and vancomycin started.?Echocardiogram shows EF of 50-55% with moderate MR and pulmonary hypertension.? Cannot rule out bicuspid aortic valve but there was no aortic stenosis or aortic regurgitation.? No obvious vegetations noted. BUN climbed to 61.? Creatinine is 1.5 and has trended down to 1.1.? BUN elevated related to steroids.? Acute kidney injury has resolved. Patient with altered mental status felt to be multifactorial.? Symptoms are better.? A1c 6.5.? The patient's blood glucose was low on admission but then elevated due to steroids. He was monitored with AccuCheks covering with sliding scale.? Hypoglycemia protocol was available as needed.?Plan to stop Amaryl and hold Farxiga. Patient has a history CVA.? We continued aspirin and Lipitor. Neurology did recommend Plavix but felt that his AMS related to UTI and hypoglycemia and he has recent surgery so this was held. BP stable so we held his lisinopril. He overall did well and was able to be discharged on 07/26/23 to rehab Patient was in group home where his urine was found to be infected and was sent to the ER for evaluation. Workup was done which showed urosepsis. Patient has sacral decubitus ulcers and has been on triple antibiotics. Patient was evaluated in the ER and his antibiotics were re-initiated. Given his condition and his recent surgery, the family requested patient to be transferred to our institution. I immediately evaluated patient on the floor on his arrival. He appears chronically ill but communicating well with myself and the staff. Reviewed labs and electrolytes from the transferring emergency room. Patient has elevated troponins but not complaining of any chest pain. I will restart him on his antibiotics, get his Santillan changed, send urine for culture and request Cardiology ID and neurosurgery evaluations in a.m. Review of Systems Review of Systems: He denies any chest pain, palpitations, fever rigor chills, nausea vomiting, dizziness loss of consciousness. All systems reviewed & are unremarkable except as noted in HPI and below PMFSH Past Medical History Medical History Cerebrovascular accident Coronary artery disease Hypertension Nicotine dependence Shingles Type 2 diabetes mellitus Surgical History Surgical History History of amputation of toe (2017) History of cardiac catheterization History of coronary artery bypass graft (05/11/08) Family History Family History (Reviewed 08/03/23 @ 00:39 b
--- NOTE | 2023-08-03 00:34 | ADMGEN ---
This patient, Santhosh Adler, was admitted to IMU Room 207-01 at 0013 Patient/family oriented to hospital policies and general routines including ID bracelet, bed and alarms, visiting hours, pain management, procedures, bathroom and other care routines, personal items, smoking policy, room service/diet, and visiting hours. Information on how to activate the Rapid Response Team has been discussed. Patient/Family are encouraged to report perceived risks to care and to ask questions if they do not understand what they are told or what they should do.
[2023-08-03] MEDS: SODIUM CHLORIDE 0.9% IV 1,000 ML 75 ML IV CONT (02:20)
[2023-08-03 02:24] LABS: Basophils Percent Auto 0.1 % (0.2-1.2); Eosinophils Absolute Auto 0.1 K/mm3 (0-0.3); Eosinophils Percent Auto 0.8 % (0-4.4); Hematocrit 30.5 % (42.0-52.0); Hemoglobin 9.6 g/dL (14.0-18.0); Immature Granulocyte Absolute 0.07 K/mm3 (0.00-0.031); Immature Granulocyte Percent A 0.8 % (0-0.5); Lymphocytes Absolute Auto 0.72 K/mm3 (0.9-3.2); Lymphocytes Percent Auto 8.6 % (18.3-44.2); Mean Corpuscular HGB Conc 31.5 g/dl (32-36); Mean Corpuscular Hemoglobin 30.2 pg (26-34); Mean Corpuscular Volume 95.9 fl (80-100); Mean Platelet Volume 11.5 fl (7.4-10.4); Monocytes Absolute Auto 0.5 K/mm3 (0.1-0.6); Monocytes Percent Auto 5.5 % (2.6-8.5); Neutrophils Absolute Auto 7.1 K/mm3 (1.3-6.7); Neutrophils Percent Auto 84.2 % (45.5-73.1); Platelet Count Result 144 k/mm3 (150-375); Red Blood Count 3.18 M/mm3 (4.6-6.20); Red Cell Distribution Width 14.8 % (11.5-14.5); White Blood Count 8.4 K/mm3 (4.5-10.0)
[2023-08-03 02:44] LABS: Alanine Aminotransferase 40 U/L (6-50); Albumin Level 2.7 g/dL (3.5-5.1); Alkaline Phosphatase 82 U/L (38-126); Anion Gap 4 mmol/L (8-16); Aspartate Amino Transferase 56 U/L (17-59); Bilirubin,Total 1.2 mg/dL (0.2-1.3); Blood Urea Nitrogen 30 mg/dL (9-20); Calcium 7.7 mg/dL (8.4-10.2); Carbon Dioxide 23 mmol/L (22-30); Chloride 111 mmol/L (98-107); Estimated CRCL calculation 53 ml/min; Estimated Glomerular Filt Rate > 60; Glucose 193 mg/dL (65-110); Magnesium 2.1 mg/dL (1.6-2.3); Sodium 138 mmol/L (137-145)
[2023-08-03] MEDS: CEFEPIME 2 GM/NS 50 ML 2 GM/50 ML BAG IVPB ×2 (03:36→14:30)
[2023-08-03] MEDS: FLUCONAZOLE 200 MG/NACL 100 ML 200 MG/100 ML BAG 100 MG IVPB (06:35)
--- NOTE | 2023-08-03 06:52 | ECG_ITS ---
Measurements Intervals [place] Rate: 59 P: [place]: 0 QRS: 32 QRSD: 134 T: 115 QT: 481 QTc: 480 Interpretive Statements ATRIAL FLUTTER/TACHYCARDIA WITH SLOW VENTRICULAR RESPONSE INCOMPLETE LEFT BUNDLE BRANCH BLOCK ANTEROSEPTAL INFARCT, AGE INDETERMINATE ST-T WAVE ABNORMALITY IN HIGH LATERAL LEADS- CONSIDER ISCHEMIA ABNORMAL ECG COMPARED TO ECG 07/19/2023 01:58:28 HEART RATE HAS INCREASED Electronically Signed On 08-03-2023 7:37:15 CDT by Kal Rocha D.O.
[2023-08-03 07:18] LABS: Glucose Point of Care 205 mg/dl (65-105)
[2023-08-03] MEDS: INSULIN ASPART (*BKC) 100 UNITS/ML SUB-Q (07:21)
[2023-08-03] MEDS: CENTRAL LINE FLUSH 10 ML IV PUSH ×4 (07:25→22:39)
[2023-08-03] MEDS: TOLNAFTATE 1% POWDER 45 GM BTL 1 APPLIC TOPICAL ×2 (08:47→22:38)
[2023-08-03] MEDS: ENOXAPARIN 40 MG/0.4 ML SYRINGE SUB-Q (08:47)
[2023-08-03] MEDS: EMPAGLIFLOZIN 10 MG TABLET 5 MG BY MOUTH (08:48)
[2023-08-03] MEDS: GLIMEPIRIDE 2 MG TABLET 4 MG PO (08:48)
[2023-08-03] MEDS: lisinopriL 5 MG TABLET PO (08:50)
--- NOTE | 2023-08-03 11:08 | ECHO_ITS ---
Patient Info Name: Santhosh Adler Age: 77 years : 1945 Gender: Male Ht: 71 in Wt: 165 lbs BSA: 1.94 m2 HR: 78 bpm BP: 134 / 73 mmHg Heart Rhythm: Atrial Flutter Technical Quality: Good Exam Date: 08/03/2023 12:05 PM [facility] Patient Status: Inpatient Admit Date: 08/03/2023 Staff Ordering Physician: Vinh Au MD Sailing Instructor: Francesca Bahena RDCS Attending Provider: Jason Bravo MD Referring Physician: Angely SEGURA; Exam Type: CA echo limited w contrast Study Info Indications - NSTEMI Limited two-dimensional transthoracic echocardiogram is performed with contrast. Contrast/Agitated Saline Contrast/Ag. Saline: Definity Amount: 2.00 ml Administered By: Francesca Bahena [facility] Existing IV Access: Yes IV Access Condition: patent with no signs of infiltration Summary 1. Technically difficult study with limited views. Definity contrast administered. 2. Left ventricular systolic function is mildly reduced, estimated at 50-55% with hypokinesis of the apex, apical inferior, apical septal, and mid and basal anterolateral and anterior wall. 3. Left ventricular chamber dimension is normal. 4. There is mildly increased left ventricular wall thickness. 5. The left ventricular diastolic function is indeterminate. 6. There is moderate to severe mitral valve regurgitation. 7. The mitral valve annulus is moderately calcified. 8. The mitral valve has thickened leaflets. 9. There is mild aortic valve regurgitation. Left Ventricle Left ventricular systolic function is mildly reduced, estimated at 50-55% with hypokinesis of the apex, apical inferior, apical septal, and mid and basal anterolateral and anterior wall. Technically difficult study with limited views. Definity contrast administered. Left ventricular chamber dimension is normal. There is mildly increased left ventricular wall thickness. The left ventricular diastolic function is indeterminate. Right Ventricle Right ventricular chamber dimension is not well visualized. Aortic Valve The aortic valve is not well visualized. There is mild aortic valve regurgitation. Pulmonic Valve The pulmonic valve is not well visualized. Mitral Valve The mitral valve has thickened leaflets. There is moderate to severe mitral valve regurgitation. The mitral valve annulus is moderately calcified. Tricuspid Valve Unable to assess PA systolic pressure due to poor spectral resolution of tricuspid regurgitant jet velocity. The tricuspid valve leaflets are not well visualized. Pericardium/Pleural The pericardium appears not well visualized. Inferior Vena Cava Dilated inferior vena cava with >50% collapse upon inspiration consistent with elevated right atrial pressure, 10 mmHg. Aorta The aortic root size at the sinus of Valsalva is not well visualized. Tricuspid Valve Name Value Normal Estimated PAP/RSVP RA Pressure 10 mmHg <=5 Aortic Valve Name Value Normal AV Regurgitation Doppler AR De
[2023-08-03 11:26] LABS: Glucose Point of Care 136 mg/dl (65-105)
--- NOTE | 2023-08-03 11:48 | PM.IMPN ---
Progress Note: A&P Assessment and Plan (1) Sepsis secondary to UTI: Code(s): A41.9 - Sepsis, unspecified organism; N39.0 - Urinary tract infection, site not specified Status: Acute (2) Status post transmetatarsal amputation of right foot: Code(s): Z89.431 - Acquired absence of right foot Status: Acute (3) Amputation of left foot: Code(s): S98.912A - Complete traumatic amputation of left foot, level unspecified, initial encounter Status: Acute (4) History of coronary artery bypass graft: Onset Date: 05/11/08 Code(s): Z95.1 - Presence of aortocoronary bypass graft Status: Acute (5) History of CVA (cerebrovascular accident): Code(s): Z86.73 - Personal history of transient ischemic attack (TIA), and cerebral infarction without residual deficits Status: Acute (6) Ischemic cardiomyopathy: Code(s): I25.5 - Ischemic cardiomyopathy Status: Acute (7) Carotid arterial disease: Qualifiers: Carotid artery disease type: occlusion Laterality: right Qualified Code(s): I65.21 - Occlusion and stenosis of right carotid artery Code(s): I77.9 - Disorder of arteries and arterioles, unspecified Status: Acute (8) Coronary artery disease: Qualifiers: Coronary Disease-Associated Artery/Lesion type: [place] artery [place] vs. 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 Qualified Code(s): I15.2 - Hypertension secondary to endocrine disorders Code(s): I10 - Essential (primary) hypertension Status: Acute (11) Type 2 diabetes mellitus: Qualifiers: Diabetes mellitus usp insulin use: with usp use Diabetes mellitus complication status: with circulatory complication Code(s): E11.9 - Type 2 diabetes mellitus without complications Status: Acute (12) Hypoglycemia: Code(s): E16.2 - Hypoglycemia, unspecified Status: Acute Plan Admit patient to IMU under full inpatient status Patient has the infected urine visible through the Santillan catheter DC Santillan catheter and send catheter tip for culture Send urine for culture as well Patient received aggressive IV hydration for in transferring ER for his sepsis Patient restarted on his triple antibiotic in the form of IV vancomycin, IV cefepime and IV fluconazole Wound care consult given for evaluation of sacral decubitus ulcers Patient had elevated troponins in the transferring ER, without any chest pain Monitor cardiac enzymes x3 ... First set of troponin-I here is elevated at 4.75 Patient is not complaining of any chest pain Last echo was done 10 days ago on 07/24/2023 which showed preserved left ventricular function with EF 50-55% Cardiology consult given for evaluation and treatment recommendations regarding elevated troponins and cardiology workup Neurosurgical consult given in a.m. for evaluation as patient has urosepsis which may potentially affect surgical site ID consultation given in a.m. for evaluation and further treatment recommendations Patient started on Accu-Cheks with Insulin coverage as per protocol His long-term prognosis remains guarded ? Patient seen and examined at bedside ? Collaborated with patient's nurse at the bedside in detail and addressed all concerns ? Labs, electrolytes, radiology, investigations and test results reviewed ? ED/Consult/Nursing/Ancilliary notes on the chart reviewed and appreciated ? Spoke with patient/family at the bedside and answered all the
[2023-08-03] MEDS: PERFLUTREN LIPID MICROSPHERES 1.5 ML VIAL DILUTED TO 10 ML TOTAL VOLUME IV PUSH (12:30)
--- NOTE | 2023-08-03 14:00 | IVDEFINITY ---
Prior to administration of IV Definity the patient was educated on the risks and benefits of the imaging enhancing agent including potential adverse side effects. The patient verbalized understanding. Allergies were verified. No exclusion criteria were identified and at least one of the following inclusion criteria were met: 1) physician request, 2) patient technically difficult to image (per the [place] [employer] guidelines of two or more segments not discernable within the apical view), or 3) questionable left ventricular function. ?
--- NOTE | 2023-08-03 14:52 | PM.CNCAR ---
Assessment and Plan Assessment and plan (1) NSTEMI (non-ST elevated myocardial infarction): Code(s): I21.4 - Non-ST elevation (NSTEMI) myocardial infarction Status: Acute Assessment and Plan: Patient presents as transfer from outside hospital if with significantly elevated troponin without complaints of chest pain or shortness of breath. No new acute ischemic ECG changes. There is no other clear contribution to elevated troponins at this time but can be identified. Patient is afebrile and is being treated for UTI and sacral decubitus ulcer. Neurosurgery preferred to avoid systemic anticoagulation for now also soon postop cervical fusion and discectomy due to bleeding risk. This risk may be further heightened in setting of mild thrombocytopenia. I would add aspirin 81 mg daily and continue DVT prophylaxis. Ideally, would initiate at least 48 hours heparin infusion risk conservative management at this time as he is completely asymptomatic in this regard. He did not present with acute kidney injury or significant hemodynamic compromise. He has extensive history CAD with remote bypass surgery with inconsistent interval follow-up for many years. Ischemic evaluation would be warranted and if he develops new symptoms, ECG changes are new concerns or hemodynamic instability coronary angiography be considered, however, he did balance this with bleeding risk system postop neurosurgical procedure. Will proceed with conservative management at this time. We will review 2D echocardiogram as ordered to assess for new wall motion abnormalities or valve pathology. His picture is not consistent with endocarditis or bacteremia yet will continue to monitor clinically. Patient is very complicated with multiple comorbidities and high risk for complications with guarded prognosis. Will review 2D echocardiogram when available with recommendations to follow as appropriate. All questions answered to the patient's satisfaction. Patient states if necessary he would be willing to proceed with coronary angiography in recommended in the future. (2) Coronary artery disease: Qualifiers: Coronary Disease-Associated Artery/Lesion type: [place] artery [place] vs. transplanted heart: [place] heart Associated angina: without angina Qualified Code(s): I25.10 - Atherosclerotic heart disease of [place] coronary artery without angina pectoris Code(s): I25.10 - Atherosclerotic heart disease of [place] coronary artery without angina pectoris Status: Acute Assessment and Plan: As above, he is not presenting with anginal symptoms yet with significant troponin elevation. Continue atorvastatin, resume aspirin 81 mg daily. Continue lisinopril, Jardiance 5 mg daily. (3) Atrial flutter: Qualifiers: Atrial flutter type: unspecified Qualified Code(s): I48.92 - Unspecified atrial flutter Code(s): I48.92 - Unspecified atrial flutter Status: Acute Assessment and Plan: Heart rate control, bradycardic. He is not currently on rate controlling agents as a result. Continue to monitor heart rate on telemetry. Patient is a high risk for stroke with atrial flutter in general. Neuro surgery preferred to hold off for now if possible to reduce bleeding complication risk. (4) Thrombocytopenia: Code(s): D69.6 - Thrombocytopenia, unspecified Status: Acute Assessment and Plan: Mild thrombocytopenia. Continue to follow platelet count, CBC. No evidence for active bleeding. (5) Anemia: Qualifiers: Anemia type: unspecified type Qualified Code(s): D64.9 - Anemia, unspecified Code(s): D64.9 - Anemia, unspecified Status: Acute Assessment and Plan: Follow CBC closely. Monitor for bleeding. (6) Sepsis secondary to UTI: Code(s): A41.9 - Sepsis, unspecified organism; N39.0 - Urinary tract infection, site not specified Status: Acute Assessment and Plan: Antibio
[2023-08-03] MEDS: ACETAMINOPHEN 325 MG TABLET 650 MG PO (16:39)
--- NOTE | 2023-08-03 17:00 | PC.NURSE ---
Dr. Bravo notified of SOB and hypoxia. 89% on room air. No change in lung sounds. Patient placed on 2L NC, IVF stopped, HOB elevated greater than 30 degrees.
[2023-08-03 17:35] LABS: NT Pro B Type Natriuretic Pept 10000 pg/mL (19.9-100)
[2023-08-03 18:53] LABS: Glucose Point of Care 125 mg/dl (65-105)
[2023-08-03 21:56] LABS: Glucose Point of Care 108 mg/dl (65-105)
[2023-08-03] MEDS: ATORVASTATIN 40 MG TABLET 80 MG PO (22:38)
[2023-08-04] VITALS (13 sets, daily range): BP systolic 126–155; BP diastolic 57–85; PULSE 63–85; RESP 16–20; TEMP 35.9–36.7; O2SAT 93–100
[2023-08-04] MEDS: CEFEPIME 2 GM/NS 50 ML 2 GM/50 ML BAG IVPB ×2 (02:27→16:58)
[2023-08-04 06:19] LABS: Hematocrit 32.6 % (42.0-52.0); Mean Corpuscular HGB Conc 30.7 g/dl (32-36); Mean Corpuscular Hemoglobin 29.8 pg (26-34); Mean Platelet Volume 11.4 fl (7.4-10.4); Platelet Count Result 142 k/mm3 (150-375); Red Blood Count 3.36 M/mm3 (4.6-6.20); Red Cell Distribution Width 14.6 % (11.5-14.5); White Blood Count 9.7 K/mm3 (4.5-10.0)
[2023-08-04 06:28] LABS: Anion Gap 6 mmol/L (8-16); Blood Urea Nitrogen 27 mg/dL (9-20); Calcium 7.7 mg/dL (8.4-10.2); Carbon Dioxide 21 mmol/L (22-30); Chloride 111 mmol/L (98-107); Estimated CRCL calculation 58 ml/min; Estimated Glomerular Filt Rate > 60; Glucose 142 mg/dL (65-110); Sodium 138 mmol/L (137-145)
[2023-08-04] MEDS: CENTRAL LINE FLUSH 10 ML IV PUSH ×4 (06:39→20:58)
[2023-08-04 08:17] LABS: Glucose Point of Care 115 mg/dl (65-105)
[2023-08-04] MEDS: ASPIRIN 81 MG ENTERIC TABLET PO (09:12)
[2023-08-04] MEDS: GLIMEPIRIDE 2 MG TABLET 4 MG PO (09:12)
[2023-08-04] MEDS: EMPAGLIFLOZIN 10 MG TABLET 5 MG BY MOUTH (09:12)
[2023-08-04] MEDS: ENOXAPARIN 40 MG/0.4 ML SYRINGE SUB-Q (09:13)
[2023-08-04] MEDS: TOLNAFTATE 1% POWDER 45 GM BTL 1 APPLIC TOPICAL ×2 (09:13→20:58)
[2023-08-04] MEDS: lisinopriL 5 MG TABLET PO (09:13)
[2023-08-04 11:57] LABS: Glucose Point of Care 109 mg/dl (65-105)
--- NOTE | 2023-08-04 12:21 | PM.IMPN ---
Progress Note: A&P Assessment and Plan (1) Sepsis secondary to UTI: Code(s): A41.9 - Sepsis, unspecified organism; N39.0 - Urinary tract infection, site not specified Status: Acute Assessment and Plan: Monitor. Vital signs stable Continue antibiotics (2) Status post transmetatarsal amputation of right foot: Code(s): Z89.431 - Acquired absence of right foot Status: Acute Assessment and Plan: History of (3) Amputation of left foot: Code(s): S98.912A - Complete traumatic amputation of left foot, level unspecified, initial encounter Status: Acute Assessment and Plan: History (4) History of coronary artery bypass graft: Onset Date: 05/11/08 Code(s): Z95.1 - Presence of aortocoronary bypass graft Status: Acute Assessment and Plan: Troponin elevated. Appreciate cardiology consult. No heparin secondary to recent spinal surgery. (5) History of CVA (cerebrovascular accident): Code(s): Z86.73 - Personal history of transient ischemic attack (TIA), and cerebral infarction without residual deficits Status: Acute Assessment and Plan: History of. (6) Ischemic cardiomyopathy: Code(s): I25.5 - Ischemic cardiomyopathy Status: Acute Assessment and Plan: Does not appear to be compensated. One dose of Lasix giving thus far. (7) Carotid arterial disease: Qualifiers: Carotid artery disease type: occlusion Laterality: right Qualified Code(s): I65.21 - Occlusion and stenosis of right carotid artery Code(s): I77.9 - Disorder of arteries and arterioles, unspecified Status: Acute Assessment and Plan: Monitor (8) Coronary artery disease: Qualifiers: Coronary Disease-Associated Artery/Lesion type: [place] artery [place] vs. transplanted heart: [place] heart Associated angina: without angina Qualified Code(s): I25.10 - Atherosclerotic heart disease of [place] coronary artery without angina pectoris Code(s): I25.10 - Atherosclerotic heart disease of [place] coronary artery without angina pectoris Status: Acute Assessment and Plan: Troponin elevated, appreciate Cardiology input. Patient denies chest pain. (9) Hypertension: Qualifiers: Hypertension type: secondary to endocrine disorders Qualified Code(s): I15.2 - Hypertension secondary to endocrine disorders Code(s): I10 - Essential (primary) hypertension Status: Acute Assessment and Plan: Blood pressure is okay. Continue cardiac meds (10) Type 2 diabetes mellitus: Qualifiers: Diabetes mellitus half-way insulin use: with terminal operations supervisor use Diabetes mellitus complication status: with circulatory complication Code(s): E11.9 - Type 2 diabetes mellitus without complications Status: Acute Assessment and Plan: Monitor blood sugars (11) Hypoglycemia: Code(s): E16.2 - Hypoglycemia, unspecified Status: Acute (12) Cervical radiculopathy: Code(s): M54.12 - Radiculopathy, cervical region Status: Acute Assessment and Plan: Neurosurgery has been consulted. Appears stable at this time. Subjective Date/time seen: 08/04/23 12:21 Interval history: no new complaints slightly confused - wanting to get cane and walk around room, ? if this is his baseline no focal neuro deficits more alert overall today Exam Narrative: PHYSICAL EXAMINATION: Vital signs: Please see the chart General physical exam: chronically ill-appearing patient, brought to hospital by ambulance, holding conversation well with staff Head/eyes: Atraumatic, EOMI, PERRLA ENT: Moist mucous membranes, nasal passages clear Neck: Supple, full range of motion, trachea midline CVS: S1 + S2, regular rate and rhythm, no murmurs Respiratory: Bilaterally fair air entry in both lung heart, mild B/L crackles, symmetric chest expansion, no distress Abdomen: Soft, non-t
[2023-08-04] MEDS: FLUCONAZOLE 200 MG/NACL 100 ML 200 MG/100 ML BAG 100 MG IVPB (14:37)
[2023-08-04] MEDS: FUROSEMIDE INJ 40 MG/4 ML VIAL 20 MG IV PUSH (14:50)
--- NOTE | 2023-08-04 16:03 | PM.PNCARD ---
Progress Note: A&P Assessment and Plan (1) NSTEMI (non-ST elevated myocardial infarction): Code(s): I21.4 - Non-ST elevation (NSTEMI) myocardial infarction Status: Acute Assessment and Plan: Patient presents as transfer from outside hospital if with significantly elevated troponin without complaints of chest pain or shortness of breath. No new acute ischemic ECG changes. There is no other clear contribution to elevated troponins at this time but can be identified. Patient is afebrile and is being treated for UTI and sacral decubitus ulcer. Neurosurgery preferred to avoid systemic anticoagulation for now also soon postop cervical fusion and discectomy due to bleeding risk. Ideally, would initiate at least 48 hours heparin infusion risk conservative management at this time as he is completely asymptomatic in this regard. He did not present with acute kidney injury or significant hemodynamic compromise. He has extensive history CAD with remote bypass surgery with inconsistent interval follow-up for many years. Ischemic evaluation would be warranted and if he develops new symptoms, ECG changes are new concerns or hemodynamic instability coronary angiography be considered, however, he did balance this with bleeding risk system postop neurosurgical procedure. Will proceed with conservative management at this time. We will review 2D echocardiogram as ordered to assess for new wall motion abnormalities or valve pathology. His picture is not consistent with endocarditis or bacteremia yet will continue to monitor clinically. Patient is very complicated with multiple comorbidities and high risk for complications with guarded prognosis. 2D echocardiogram 08/03/23 reviewed EF 50 55% limited study technically difficult with limited views. Mid to basal anterolateral and anterior hypokinesis as well as hypokinesis of the apex and apical inferior irby. Normal LV size, mild LVH moderate to severe mitral regurgitation with mild aortic regurgitation. Mitral valve appears mildly thickened with moderate mitral annular calcification. RV appears to be normal size and function given this limited study. Compared to prior study in 07/24/2023 EF unchanged 50- 55%, however, wall motion abnormalities are now appreciated consistent with interval infarction. We are limited with regards to aggressive management given postoperative neurosurgical status and risk for bleeding complication. Furthermore, patient admitted to no anginal symptoms of any kind. Discussed further workup and management. Continue aspirin 81 mg daily, atorvastatin 80 mg daily. Troponin continues to trend downward. Repeat ECG in a.m.. (2) Coronary artery disease: Qualifiers: Coronary Disease-Associated Artery/Lesion type: [place] artery [place] vs. transplanted heart: [place] heart Associated angina: without angina Qualified Code(s): I25.10 - Atherosclerotic heart disease of [place] coronary artery without angina pectoris Code(s): I25.10 - Atherosclerotic heart disease of [place] coronary artery without angina pectoris Status: Acute Assessment and Plan: As above, he is not presenting with anginal symptoms yet with significant troponin elevation and new wall motion abnormalities consistent with infarction. Continue atorvastatin, resume aspirin 81 mg daily. Continue lisinopril, Jardiance 5 mg daily. (3) Atrial flutter: Qualifiers: Atrial flutter type: unspecified Qualified Code(s): I48.92 - Unspecified atrial flutter Code(s): I48.92 - Unspecified atrial flutter Status: Acute Assessment and Plan: Heart rate controlled, bradycardic. He is not currently on rate controlling agents as a result. Continue to monitor heart rate on telemetry. Patient is a high risk for stroke with atrial flutter in general. Neuro surgery preferred to hold off on systemic anticoagulation for now to reduce bleeding complication risk. (4) Thrombocytopeni
[2023-08-04 16:37] LABS: Glucose Point of Care 112 mg/dl (65-105)
[2023-08-04] MEDS: ACETAMINOPHEN 325 MG TABLET 650 MG PO (18:37)
[2023-08-04 20:51] LABS: Glucose Point of Care 100 mg/dl (65-105)
[2023-08-04] MEDS: ATORVASTATIN 40 MG TABLET 80 MG PO (20:57)
[2023-08-05] VITALS (16 sets, daily range): BP systolic 133–145; BP diastolic 47–73; PULSE 55–83; RESP 16–21; TEMP 36.1–36.9; O2SAT 93–100; BMI 24.0
[2023-08-05] MEDS: CEFEPIME 2 GM/NS 50 ML 2 GM/50 ML BAG IVPB ×2 (03:13→16:17)
[2023-08-05 03:28] LABS: Anion Gap 6 mmol/L (8-16); Blood Urea Nitrogen 26 mg/dL (9-20); Calcium 7.8 mg/dL (8.4-10.2); Carbon Dioxide 21 mmol/L (22-30); Chloride 111 mmol/L (98-107); Estimated CRCL calculation 58 ml/min; Estimated Glomerular Filt Rate > 60; Glucose 71 mg/dL (65-110); Potassium 3.7 mmol/L (3.4-5.0); Sodium 138 mmol/L (137-145)
[2023-08-05 03:32] LABS: Vancomycin Trough 14.6 ug/mL (10.0-20.0)
[2023-08-05 03:42] LABS: Basophils Percent Auto 0.2 % (0.2-1.2); Eosinophils Absolute Auto 0.1 K/mm3 (0-0.3); Eosinophils Percent Auto 0.6 % (0-4.4); Hematocrit 32.5 % (42.0-52.0); Hemoglobin 10.3 g/dL (14.0-18.0); Immature Granulocyte Percent A 0.8 % (0-0.5); Lymphocytes Absolute Auto 1.02 K/mm3 (0.9-3.2); Lymphocytes Percent Auto 8.2 % (18.3-44.2); Mean Corpuscular HGB Conc 31.7 g/dl (32-36); Mean Corpuscular Hemoglobin 29.9 pg (26-34); Mean Corpuscular Volume 94.5 fl (80-100); Mean Platelet Volume 11.1 fl (7.4-10.4); Monocytes Absolute Auto 0.7 K/mm3 (0.1-0.6); Monocytes Percent Auto 5.2 % (2.6-8.5); Neutrophils Absolute Auto 10.6 K/mm3 (1.3-6.7); Platelet Count Result 150 k/mm3 (150-375); Red Blood Count 3.44 M/mm3 (4.6-6.20); Red Cell Distribution Width 14.9 % (11.5-14.5); White Blood Count 12.5 K/mm3 (4.5-10.0)
[2023-08-05 04:51] LABS: Glucose Point of Care 65 mg/dl (65-105)
[2023-08-05] MEDS: DEXTROSE 50% 25 GM/50 ML SYRINGE IV PUSH (04:52)
[2023-08-05] MEDS: CENTRAL LINE FLUSH 10 ML IV PUSH ×3 (05:05→20:30)
[2023-08-05 05:57] LABS: Glucose Point of Care 184 mg/dl (65-105)
--- NOTE | 2023-08-05 05:59 | PC.NURSE ---
Follow up POC blood glucose 184. Unable to chart on hypoglycemia protocol assessment as there is no option to select >70. Only < 60 or 60-69. Will continue to monitor.
--- NOTE | 2023-08-05 08:00 | ECG_ITS ---
Measurements Intervals [place] Rate: 70 P: NV: 0 QRS: -6 QRSD: 141 T: 101 QT: 438 QTc: 474 Interpretive Statements ATRIAL FLUTTER/TACHYCARDIA INTRAVENTRICULAR CONDUCTION DELAY ANTEROSEPTAL INFARCT, AGE INDETERMINATE CONSIDER INFERIOR INFARCT, AGE INDETERMINATE ST-T WAVE ABNORMALITY IN HIGH LATERAL LEADS- CONSIDER ISCHEMIA ABNORMAL ECG COMPARED TO ECG 08/03/2023 06:57:25 HEART RATE HAS INCREASED Electronically Signed On 08-05-2023 10:26:12 CDT by Kal Rocha D.O.
[2023-08-05 08:03] LABS: Glucose Point of Care 158 mg/dl (65-105)
--- NOTE | 2023-08-05 10:33 | PM.PNCARD ---
Progress Note: A&P Assessment and Plan (1) NSTEMI (non-ST elevated myocardial infarction): Code(s): I21.4 - Non-ST elevation (NSTEMI) myocardial infarction <DAWNA Fuentes - Last Filed: 08/05/23 13:27> Status: Acute <DAWNA Fuentes - Last Filed: 08/05/23 13:27> Assessment and Plan: Patient presents as transfer from outside hospital if with significantly elevated troponin without complaints of chest pain or shortness of breath. No new acute ischemic ECG changes. Not a candidate for angiogram or standard medical therapy for NSTEMI with anticoagulation because of recent surgery and bleeding risk. Continue with conservative management at this time. Continues to deny any chest pain. Echo showed EF 50-55% with mid to basal anterolateral and anterior hypokinesis as well as hypokinesis of the apex and apical inferior irby <DAWNA Fuentes - Last Filed: 08/05/23 13:27> (2) Coronary artery disease: Qualifiers: Associated angina: without angina Coronary Disease-Associated Artery/Lesion type: [place] artery [place] vs. transplanted heart: [place] heart Qualified Code(s): I25.10 - Atherosclerotic heart disease of [place] coronary artery without angina pectoris <DAWNA Fuentes - Last Filed: 08/05/23 13:27> Code(s): I25.10 - Atherosclerotic heart disease of [place] coronary artery without angina pectoris <DAWNA Fuentes - Last Filed: 08/05/23 13:27> Status: Acute <DAWNA Fuentes - Last Filed: 08/05/23 13:27> Assessment and Plan: No anginal symptoms yet with significant troponin elevation and new wall motion abnormalities consistent with infarction. Continue atorvastatin, resume aspirin 81 mg daily. Continue lisinopril, Jardiance 5 mg daily. <DAWNA Fuentes - Last Filed: 08/05/23 13:27> (3) Atrial flutter: Qualifiers: Atrial flutter type: unspecified Qualified Code(s): I48.92 - Unspecified atrial flutter <DAWNA Fuentes - Last Filed: 08/05/23 13:27> Code(s): I48.92 - Unspecified atrial flutter <Laurie RiosDAWNA gerard - Last Filed: 08/05/23 13:27> Status: Acute <Laurie MckeonJOHNNYC - Last Filed: 08/05/23 13:27> Assessment and Plan: Heart rate controlled, bradycardic. He is not currently on rate controlling agents as a result. Continue to monitor heart rate on telemetry. Does have intermittent bradycardia mostly during times of sleep. Blood pressure remains stable. Clearly has AV node dysfunction given slow ventricular response in the absence of any AV [place] agents. No indication for pacemaker at this time. Check TSH, electrolytes. Patient is a high risk for stroke with atrial flutter in general. Neuro surgery preferred to hold off on systemic anticoagulation for now to reduce bleeding complication risk. <Laurie Lissy DAWNA Mckeon - Last Filed: 08/05/23 13:27> (4) Thrombocytopenia: Code(s): D69.6 - Thrombocytopenia, unspecified <Laurie RiosJOHNNY gerardC - Last Filed: 08/05/23 13:27> Status: Acute <Laurie Lissy DAWNA Mckeon - Last Filed: 08/05/23 13:27> Assessment and Plan: Mild thrombocytopenia persistent, stable. Continue to follow platelet count, CBC. No evidence for active bleeding. <Laurie MalinaDAWNA Ace - Last Filed: 08/05/23 13:27> (5) Anemia: Qualifiers: Anemia type: unspecified type Qualified Code(s): D64.9 - Anemia, unspecified <Laruie Lissy RiosJOHNNY gerardC - Last Filed: 08/05/23 13:27> Code(s): D64.9 - Anemia, unspecified <Laurie MalinaDAWNA Ace - Last Filed: 08/05/23 13:27> Status: Acute <Laurie Lissy JOHNNY MckeonC - Last Filed: 08/05/23 13:27> Assessment and Plan: Follow CBC closely. Monitor for bleeding. <DAWNA Fuentes - Last Filed: 08/05/23 13:27> (6) Sepsis secondary to UTI: Code(s): A41.9 - Sepsis, unspecified organism; N39.0 - Urinary tract infection, site not specifi
[2023-08-05 11:34] LABS: Glucose Point of Care 113 mg/dl (65-105)
[2023-08-05] MEDS: TOLNAFTATE 1% POWDER 45 GM BTL 1 APPLIC TOPICAL ×2 (11:39→20:30)
[2023-08-05] MEDS: ENOXAPARIN 40 MG/0.4 ML SYRINGE SUB-Q (11:39)
--- NOTE | 2023-08-05 11:52 | PM.IMPN ---
Progress Note: A&P Assessment and Plan (1) Sepsis secondary to UTI: Code(s): A41.9 - Sepsis, unspecified organism; N39.0 - Urinary tract infection, site not specified Status: Acute Assessment and Plan: Monitor. Vital signs stable Continue antibiotics (2) Status post transmetatarsal amputation of right foot: Code(s): Z89.431 - Acquired absence of right foot Status: Acute Assessment and Plan: History of (3) Amputation of left foot: Code(s): S98.912A - Complete traumatic amputation of left foot, level unspecified, initial encounter Status: Acute Assessment and Plan: History (4) History of coronary artery bypass graft: Onset Date: 05/11/08 Code(s): Z95.1 - Presence of aortocoronary bypass graft Status: Acute Assessment and Plan: Troponin elevated. Appreciate cardiology consult. No heparin secondary to recent spinal surgery. (5) History of CVA (cerebrovascular accident): Code(s): Z86.73 - Personal history of transient ischemic attack (TIA), and cerebral infarction without residual deficits Status: Acute Assessment and Plan: History of. (6) Ischemic cardiomyopathy: Code(s): I25.5 - Ischemic cardiomyopathy Status: Acute Assessment and Plan: Does not appear to be compensated. One dose of Lasix giving thus far. (7) Carotid arterial disease: Qualifiers: Carotid artery disease type: occlusion Laterality: right Qualified Code(s): I65.21 - Occlusion and stenosis of right carotid artery Code(s): I77.9 - Disorder of arteries and arterioles, unspecified Status: Acute Assessment and Plan: Monitor (8) Coronary artery disease: Qualifiers: Coronary Disease-Associated Artery/Lesion type: [place] artery [place] vs. transplanted heart: [place] heart Associated angina: without angina Qualified Code(s): I25.10 - Atherosclerotic heart disease of [place] coronary artery without angina pectoris Code(s): I25.10 - Atherosclerotic heart disease of [place] coronary artery without angina pectoris Status: Acute Assessment and Plan: Troponin elevated, appreciate Cardiology input. Patient denies chest pain. (9) Hypertension: Qualifiers: Hypertension type: secondary to endocrine disorders Qualified Code(s): I15.2 - Hypertension secondary to endocrine disorders Code(s): I10 - Essential (primary) hypertension Status: Acute Assessment and Plan: Blood pressure is okay. 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 Appears stable at this time. (13) Sacral wound: Code(s): S31.000A - Unspecified open wound of lower back and pelvis without penetration into retroperitoneum, initial encounter Status: Acute Assessment and Plan: Continue antibiotics. Patient was admitted for sepsis. Will have surgery evaluate the patient and make sure there is no osteomyelitis versus surgical debridement needed Subjective Date/time seen: 08/05/23 11:52 Interval history: Patient is confused. About the same as yesterday. Exam Narrative: PHYSICAL EXAMINATION: Vital signs: Please see the chart General physical exam: chronically ill-appearing patient, brought to hospital by ambulance, holding conversation well with staff Head/eyes: Atraumatic, EOMI, PERRLA ENT: Moist mucous membr
--- NOTE | 2023-08-05 12:41 | PCSTNOTE ---
Please refer to the Bedside Swallow Evaluation in the EMR. Please note, silent aspiration cannot be ruled out at bedside.
[2023-08-05 14:02] LABS: Magnesium 2.1 mg/dL (1.6-2.3)
--- NOTE | 2023-08-05 14:16 | PM.CNGS ---
Assessment and Plan Assessment and plan (1) Wound of buttock: Code(s): S31.809A - Unspecified open wound of unspecified buttock, initial encounter Status: Acute Assessment and Plan: Two small superficial open wounds of the buttocks that appear to be related to friction. The wounds are clean with no evidence of infection. No necrotic tissue that would require debridement. No indication for any surgical intervention at this time. Continue with local wound care with the antifungal barrier cream. Recommend frequent turning and pressure off-loading. (2) NSTEMI (non-ST elevated myocardial infarction): Code(s): I21.4 - Non-ST elevation (NSTEMI) myocardial infarction Status: Acute Assessment and Plan: Cardiology following, recommending conservative management at this time as he is not a candidate for angiogram or anticoagulation (3) Sepsis secondary to UTI: Code(s): A41.9 - Sepsis, unspecified organism; N39.0 - Urinary tract infection, site not specified Status: Acute Assessment and Plan: Continue antibiotics per primary service (4) Atrial flutter: Qualifiers: Atrial flutter type: unspecified Qualified Code(s): I48.92 - Unspecified atrial flutter Code(s): I48.92 - Unspecified atrial flutter Status: Acute (5) Cervical stenosis of spinal canal: Code(s): M48.02 - Spinal stenosis, cervical region Status: Acute Assessment and Plan: S/p C3-4 and C4-5 anterior cervical diskectomy and fusion on 07/23/23 (6) Status post transmetatarsal amputation of right foot: Code(s): Z89.431 - Acquired absence of right foot Status: Acute (7) History of coronary artery bypass graft: Onset Date: 05/11/08 Code(s): Z95.1 - Presence of aortocoronary bypass graft Status: Acute (8) History of CVA (cerebrovascular accident): Code(s): Z86.73 - Personal history of transient ischemic attack (TIA), and cerebral infarction without residual deficits Status: Acute (9) Type 2 diabetes mellitus: Qualifiers: Diabetes mellitus lobsterman insulin use: with long-term use Diabetes mellitus complication status: with circulatory complication Code(s): E11.9 - Type 2 diabetes mellitus without complications Status: Acute Plan I have discussed the patient's case and plan of care with Dr. Thao. History of Present Illness Consult details Consult date: 08/05/23 Reason for consult: other (Sacral wound) Requesting physician: Jason Bravo MD Narrative: This is a 77-year-old man with multiple medical issues who was recently hospitalized for generalized weakness, hypoglycemia, acute kidney injury, and urinary tract infection. He was also found to have severe cervical myelopathy and taken for C3-4 and C4-5 anterior cervical diskectomy and fusion on 07/23/2023. He was discharged to rehab on 07/26/23. The patient was sent to [facility] from the rehab facility for concerns of a urinary tract infection. He was directly admitted two days ago to [facility] for suspected urosepsis and elevated troponins. He was also found to have a wound on his sacral area. Wound care was consulted. They recommended antifungal barrier ointment, which has been ordered. Our service has additionally be consulted for the sacral wuond. He is now seen on the medical floor with no family at the bedside. He answers orientation questions appropriately, but is confused in regards to history. Staff states he has been confused today as well. He also has a remote history of bilateral foot amputations and has apparently been nonambulatory since May of 2023. He cannot give me any details on how long he has had the sacral wound. Review of Systems Review of Systems: ROS unobtainable: Yes unobtainable due to mental status (confusion) [facility] Past Medical History Medical History Cerebrovascular accident Coronary a
[2023-08-05 14:37] LABS: Thyroid Stimulating Hormone 0.148 uIU/mL (0.465-4.680)
--- NOTE | 2023-08-05 15:35 | PCOTNOTE ---
Per RN, Patient not to be seen at this time due to having questions for the MD and Patient's verbalized she needs to talk with the doctor, he is not ready for therapy services at this time . Will follow up at a later time.
[2023-08-05] MEDS: FLUCONAZOLE 100 MG TABLET 200 MG PO (18:55)
[2023-08-05 20:21] LABS: Glucose Point of Care 110 mg/dl (65-105)
[2023-08-05] MEDS: ATORVASTATIN 40 MG TABLET 80 MG PO (20:30)
[2023-08-06] VITALS (14 sets, daily range): BP systolic 125–148; BP diastolic 57–76; PULSE 45–84; RESP 16–22; TEMP 36.1–36.6; O2SAT 93–98
[2023-08-06] MEDS: CENTRAL LINE FLUSH 10 ML IV PUSH ×4 (04:19→22:07)
[2023-08-06] MEDS: CEFEPIME 2 GM/NS 50 ML 2 GM/50 ML BAG IVPB (04:19)
[2023-08-06 04:40] LABS: Basophils Percent Auto 0.1 % (0.2-1.2); Eosinophils Absolute Auto 0.2 K/mm3 (0-0.3); Eosinophils Percent Auto 2.2 % (0-4.4); Hematocrit 31.2 % (42.0-52.0); Hemoglobin 9.8 g/dL (14.0-18.0); Immature Granulocyte Absolute 0.05 K/mm3 (0.00-0.031); Immature Granulocyte Percent A 0.6 % (0-0.5); Immature Platelet Fraction Pct 4.3 % (0.9-11.2); Lymphocytes Absolute Auto 1.05 K/mm3 (0.9-3.2); Lymphocytes Percent Auto 12.5 % (18.3-44.2); Mean Corpuscular HGB Conc 31.4 g/dl (32-36); Mean Corpuscular Hemoglobin 29.9 pg (26-34); Mean Corpuscular Volume 95.1 fl (80-100); Monocytes Absolute Auto 0.4 K/mm3 (0.1-0.6); Neutrophils Absolute Auto 6.7 K/mm3 (1.3-6.7); Neutrophils Percent Auto 79.6 % (45.5-73.1); Platelet Count Result 129 k/mm3 (150-375); Red Blood Count 3.28 M/mm3 (4.6-6.20); Red Cell Distribution Width 15.1 % (11.5-14.5); White Blood Count 8.4 K/mm3 (4.5-10.0)
[2023-08-06 04:49] LABS: Anion Gap 6 mmol/L (8-16); Blood Urea Nitrogen 23 mg/dL (9-20); Calcium 7.7 mg/dL (8.4-10.2); Carbon Dioxide 22 mmol/L (22-30); Chloride 112 mmol/L (98-107); Estimated CRCL calculation 63 ml/min; Estimated Glomerular Filt Rate > 60; Glucose 77 mg/dL (65-110); Potassium 3.4 mmol/L (3.4-5.0); Sodium 140 mmol/L (137-145)
[2023-08-06 06:32] LABS: Glucose Point of Care 85 mg/dl (65-105)
[2023-08-06 08:44] LABS: Glucose Point of Care 91 mg/dl (65-105)
[2023-08-06] MEDS: lisinopriL 5 MG TABLET PO (09:09)
[2023-08-06] MEDS: EMPAGLIFLOZIN 10 MG TABLET 5 MG BY MOUTH (09:09)
[2023-08-06] MEDS: GLIMEPIRIDE 2 MG TABLET 4 MG PO (09:09)
[2023-08-06] MEDS: ENOXAPARIN 40 MG/0.4 ML SYRINGE SUB-Q (09:10)
[2023-08-06] MEDS: TOLNAFTATE 1% POWDER 45 GM BTL 1 APPLIC TOPICAL ×2 (09:10→22:07)
[2023-08-06] MEDS: ASPIRIN 81 MG ENTERIC TABLET PO (09:10)
--- NOTE | 2023-08-06 09:58 | PM.PNCARD ---
Progress Note: A&P Assessment and Plan (1) NSTEMI (non-ST elevated myocardial infarction): Code(s): I21.4 - Non-ST elevation (NSTEMI) myocardial infarction Status: Acute Assessment and Plan: Patient presents as transfer from outside hospital if with significantly elevated troponin without complaints of chest pain or shortness of breath. No new acute ischemic ECG changes. Not a candidate for angiogram or standard medical therapy for NSTEMI with anticoagulation because of recent surgery and bleeding risk. Continue with conservative management at this time. Continues to deny any chest pain. Echo showed EF 50-55% with mid to basal anterolateral and anterior hypokinesis as well as hypokinesis of the apex and apical inferior irby (2) Coronary artery disease: Qualifiers: Associated angina: without angina Coronary Disease-Associated Artery/Lesion type: [place] artery [place] vs. transplanted heart: [place] heart Qualified Code(s): I25.10 - Atherosclerotic heart disease of [place] coronary artery without angina pectoris Code(s): I25.10 - Atherosclerotic heart disease of [place] coronary artery without angina pectoris Status: Acute Assessment and Plan: No anginal symptoms yet with significant troponin elevation and new wall motion abnormalities consistent with infarction. Continue atorvastatin, resume aspirin 81 mg daily. Continue lisinopril, Jardiance 5 mg daily. (3) Atrial flutter: Qualifiers: Atrial flutter type: unspecified Qualified Code(s): I48.92 - Unspecified atrial flutter Code(s): I48.92 - Unspecified atrial flutter Status: Acute Assessment and Plan: Heart rate controlled, bradycardic. He is not currently on rate controlling agents as a result. Continue to monitor heart rate on telemetry. Does have intermittent bradycardia mostly during times of sleep. Blood pressure remains stable. Clearly has AV node dysfunction given slow ventricular response in the absence of any AV [place]in agents. No indication for pacemaker at this time. Check TSH, electrolytes. Patient is a high risk for stroke with atrial flutter in general. Neuro surgery preferred to hold off on systemic anticoagulation for now to reduce bleeding complication risk. Initiate systemic a/c when okay per Neurosurg (4) Thrombocytopenia: Code(s): D69.6 - Thrombocytopenia, unspecified Status: Acute Assessment and Plan: Mild thrombocytopenia persistent, stable. Continue to follow platelet count, CBC. No evidence for active bleeding. (5) Anemia: Qualifiers: Anemia type: unspecified type Qualified Code(s): D64.9 - Anemia, unspecified Code(s): D64.9 - Anemia, unspecified Status: Acute Assessment and Plan: Follow CBC closely. Monitor for bleeding. (6) Sepsis secondary to UTI: Code(s): A41.9 - Sepsis, unspecified organism; N39.0 - Urinary tract infection, site not specified Status: Acute Assessment and Plan: Antibiotic management per primary service. (7) Type 2 diabetes mellitus: Qualifiers: Diabetes mellitus complication status: with circulatory complication Diabetes mellitus termite treater helper insulin use: with termite treater helper use Code(s): E11.9 - Type 2 diabetes mellitus without complications Status: Acute Assessment and Plan: Managed per primary service. (8) History of CVA (cerebrovascular accident): Code(s): Z86.73 - Personal history of transient ischemic attack (TIA), and cerebral infarction without residual deficits Status: Acute Assessment and Plan: Statin and antiplatelet therapy very important. Given prior CVA now he is in atrial flutter patient high risk for recurrent stroke. Systemic anticoagulation advised when able and safe from a postop perspective. (9) History of coronary artery bypass graft: Onset Date: 05/11/08 Code(s): Z95.1 - Presence of aortocoronary by
--- NOTE | 2023-08-06 11:19 | PM.IMPN ---
Progress Note: A&P Assessment and Plan (1) Sepsis secondary to UTI: Code(s): A41.9 - Sepsis, unspecified organism; N39.0 - Urinary tract infection, site not specified Status: Acute Assessment and Plan: Monitor. Vital signs stable Continue antibiotics Cultures noted. Yeast isolated from the wound. (2) Status post transmetatarsal amputation of right foot: Code(s): Z89.431 - Acquired absence of right foot Status: Acute Assessment and Plan: Stable, chronic. (3) Amputation of left foot: Code(s): S98.912A - Complete traumatic amputation of left foot, level unspecified, initial encounter Status: Acute Assessment and Plan: History of, stable and chronic. (4) History of coronary artery bypass graft: Onset Date: 05/11/08 Code(s): Z95.1 - Presence of aortocoronary bypass graft Status: Acute Assessment and Plan: Troponin elevated. Appreciate cardiology consult. No heparin secondary to recent spinal surgery. (5) History of CVA (cerebrovascular accident): Code(s): Z86.73 - Personal history of transient ischemic attack (TIA), and cerebral infarction without residual deficits Status: Acute Assessment and Plan: History of. Patient has been confused since his surgery a couple weeks ago. Will repeat brain MRI. He did have an MRI on May 15, 2023. No focal deficits. (6) Ischemic cardiomyopathy: Code(s): I25.5 - Ischemic cardiomyopathy Status: Acute Assessment and Plan: Does not appear to be compensated. One dose of Lasix giving thus far. (7) Carotid arterial disease: Qualifiers: Carotid artery disease type: occlusion Laterality: right Qualified Code(s): I65.21 - Occlusion and stenosis of right carotid artery Code(s): I77.9 - Disorder of arteries and arterioles, unspecified Status: Acute Assessment and Plan: Monitor (8) Coronary artery disease: Qualifiers: Coronary Disease-Associated Artery/Lesion type: [place] artery [place] vs. transplanted heart: [place] heart Associated angina: without angina Qualified Code(s): I25.10 - Atherosclerotic heart disease of [place] coronary artery without angina pectoris Code(s): I25.10 - Atherosclerotic heart disease of [place] coronary artery without angina pectoris Status: Acute Assessment and Plan: Troponin elevated, appreciate Cardiology input. Patient denies chest pain. (9) Hypertension: Qualifiers: Hypertension type: secondary to endocrine disorders Qualified Code(s): I15.2 - Hypertension secondary to endocrine disorders Code(s): I10 - Essential (primary) hypertension Status: Acute Assessment and Plan: Blood pressure is okay. Continue cardiac meds (10) Type 2 diabetes mellitus: Qualifiers: Diabetes mellitus meterman insulin use: with meterman use Diabetes mellitus complication status: with circulatory complication Code(s): E11.9 - Type 2 diabetes mellitus without complications Status: Acute Assessment and Plan: Monitor blood sugars (11) Hypoglycemia: Code(s): E16.2 - Hypoglycemia, unspecified Status: Acute Assessment and Plan: Monitor (12) Cervical radiculopathy: Code(s): M54.12 - Radiculopathy, cervical region Status: Acute Assessment and Plan: Neurosurgery has been consulted. Appears stable at this time. (13) Sacral wound: Code(s): S31.000A - Unspecified open wound of lower back and pelvis without penetration into retroperitoneum, initial encounter Status: Acute Assessment and Plan: Continue antibiotics. Patient was admitted for sepsis. Appreciate surgical evaluation. No further debridement needed (14) Malnutrition: Code(s): E46 - Unspecified protein-calorie malnutrition Status: Acute Assessment and Plan: Has not eaten much since his surgery a couple weeks
[2023-08-06 13:03] LABS: Glucose Point of Care 78 mg/dl (65-105)
--- NOTE | 2023-08-06 13:18 | PM.PNGS ---
Progress Note: A&P Assessment and Plan (1) Wound of buttock: Code(s): S31.809A - Unspecified open wound of unspecified buttock, initial encounter Status: Acute Assessment and Plan: cont local wound care, no acute surgical indications, will s/o, call c ?s, issues Subjective Subjective Date/Time Seen: 08/06/23 13:18 Interval history: no acute issues, no c/o Review of Systems Review of Systems: All systems reviewed & are unremarkable except as noted in HPI and below Exam Const: General: cooperative, comfortable, no acute distress and ill appearing Resp: Auscultation: clear to auscultation bilaterally Cardio: Rate: regular rate Rhythm: regular rhythm GI: Inspection: normal to inspection Skin: Other: upper buttock wound - C/D/I, no s/s infection Objective Data Vital Signs Vital Signs: Vital Signs - 24 hr 08/05/23 14:00 08/05/23 16:00 08/05/23 16:00 Temperature 36.5 C Pulse Rate 69 62 67 Respiratory Rate 21 H Blood Pressure 141/59 H Pulse Oximetry 100 Oxygen Delivery 08/05/23 18:00 08/05/23 16:00 08/05/23 19:56 Temperature 36.9 C Pulse Rate 66 62 Respiratory Rate 20 Blood Pressure 133/47 L Pulse Oximetry 100 97 Oxygen Delivery Room Air 08/05/23 20:00 08/05/23 20:00 08/05/23 22:00 Temperature Pulse Rate 62 63 83 Respiratory Rate 20 Blood Pressure Pulse Oximetry 97 Oxygen Delivery Room Air 08/05/23 23:17 08/06/23 00:00 08/06/23 00:00 Temperature 36.4 C L Pulse Rate 77 77 45 L Respiratory Rate 20 20 Blood Pressure 138/57 L Pulse Oximetry 93 93 Oxygen Delivery Room Air 08/06/23 02:00 08/06/23 04:00 08/06/23 04:00 Temperature 36.5 C Pulse Rate 73 62 75 Respiratory Rate 20 Blood Pressure 125/57 L Pulse Oximetry 95 Oxygen Delivery 08/06/23 04:00 08/06/23 06:00 08/06/23 08:00 Temperature 36.6 C Pulse Rate 75 69 71 Respiratory Rate 20 16 Blood Pressure 148/75 H Pulse Oximetry 95 98 Oxygen Delivery Room Air 08/06/23 08:00 08/06/23 08:00 08/06/23 12:00 Temperature 36.6 C Pulse Rate 70 69 Respiratory Rate 16 Blood Pressure 138/70 Pulse Oximetry 98 Oxygen Delivery Room Air Intake/Output Intake/Output: Intake & Output 08/03/23 08/04/23 08/05/23 08/06/23 23:59 23:59 23:59 23:59 Intake Total 6071 739 6509 240 Output Total 6696 800 4979 450 Balance -180 190 -870 -210 Meds/Results Medications: Active Medications Generic Name Dose Route Start Last Admin Trade Name Freq PRN Reason Stop Dose Admin Acetaminophen 650 mg 08/03/23 00:54 08/04/23 18:37 Acetaminophen 325 Mg Tablet PO 650 mg Q4H PRN Administration Mild Pain (1-3) or Fever Al Hydrox/Mg Hydrox/Simethicone 30 ml 08/03/23 00:54 Mag Hydrox/Al Hydrox/Simeth 30 Ml Udc PO QID PRN Dyspepsia Aspirin 81 mg 08/04/23 09:00 08/06/23 09:10 Aspirin 81 Mg Enteric Tablet PO 81 mg QAM SARAH BETH Administration Atorvastatin Calcium 80 mg 08/03/23 21:00 08/05/23 20:30 Atorvastatin 40 Mg Tablet PO 80 mg HS SARAH BETH Administration Dextrose 12.5 gm 08/03/23 01:08 08/05/23 04:52 Dextrose 50% 25 Gm/50 Ml Syringe IV PUSH 12.5 gm PRN PRN Administration Hypoglycemia Protocol Empagliflozin 5 mg 08/03/23 09:00 08/06/23 09:09 Empagliflozin 10 Mg Tablet BY MOUTH 5 mg DAILY SARAH BETH Administration Enoxaparin Sodium 40 mg 08/03/23 09:00 08/06/23 09:10 Enoxaparin 40 Mg/0.4 Ml Syringe SUB-Q 40 mg DAILY SARAH BETH Administration Fluconazole 200 mg 08/05/23 16:00 08/05/23 18:55 Fluconazole 100 Mg Tablet PO 200 mg DAILY@1600 SARAH BETH Administration Gabapentin 400 mg 08/03/23 02:11 Gabapentin 400 Mg Capsule PO HS PRN nerve pain Glimepiride 4 mg 08/03/23 08:00 08/06/23 09:09 Glimepiride 2 Mg Tablet PO 4 mg DAILY@0800 SARAH BETH Administration Glucagon 1 mg 08/03/23 01:08 Glucagon For Inj 1 Mg Vial IM PRN PRN Hyp
[2023-08-06] MEDS: FLUCONAZOLE 100 MG TABLET 200 MG PO (15:30)
[2023-08-06] MEDS: cefTRIAXone 2 GM/NS 100 ML 2 GM/100 ML BAG IVPB (15:30)
[2023-08-06] MEDS: POTASSIUM CHLORIDE 20 MEQ PACKET (FOR LIQUID) PO (15:30)
--- NOTE | 2023-08-06 16:00 | PCPTNOTE ---
Patient sleeping this afternoon when I entered room. Patient woke up in response to name. Patient declined PT stating he participated in therapy already today (OT). PT will continue to follow per plan of care.
[2023-08-06] MEDS: ACETAMINOPHEN 325 MG TABLET 650 MG PO (17:20)
[2023-08-06 17:29] LABS: Glucose Point of Care 129 mg/dl (65-105)
[2023-08-06 17:54] LABS: Glucose Point of Care 60 mg/dl (65-105)
[2023-08-06 19:53] LABS: Glucose Point of Care 110 mg/dl (65-105)
[2023-08-06] MEDS: ATORVASTATIN 40 MG TABLET 80 MG PO (22:07)
[2023-08-07] VITALS (13 sets, daily range): BP systolic 120–133; BP diastolic 57–71; PULSE 61–87; RESP 18–27; TEMP 36–36.8; O2SAT 93–99
[2023-08-07 05:35] LABS: Basophils Percent Auto 0.2 % (0.2-1.2); Eosinophils Absolute Auto 0.1 K/mm3 (0-0.3); Eosinophils Percent Auto 0.6 % (0-4.4); Hematocrit 29.9 % (42.0-52.0); Hemoglobin 9.3 g/dL (14.0-18.0); Immature Granulocyte Absolute 0.13 K/mm3 (0.00-0.031); Immature Granulocyte Percent A 1.4 % (0-0.5); Lymphocytes Absolute Auto 0.79 K/mm3 (0.9-3.2); Lymphocytes Percent Auto 8.2 % (18.3-44.2); Mean Corpuscular HGB Conc 31.1 g/dl (32-36); Mean Corpuscular Hemoglobin 29.7 pg (26-34); Mean Corpuscular Volume 95.5 fl (80-100); Mean Platelet Volume 11.4 fl (7.4-10.4); Monocytes Absolute Auto 0.4 K/mm3 (0.1-0.6); Monocytes Percent Auto 4.6 % (2.6-8.5); Neutrophils Absolute Auto 8.2 K/mm3 (1.3-6.7); Platelet Count Result 123 k/mm3 (150-375); Red Blood Count 3.13 M/mm3 (4.6-6.20); Red Cell Distribution Width 15.3 % (11.5-14.5); White Blood Count 9.6 K/mm3 (4.5-10.0)
[2023-08-07 05:44] LABS: Anion Gap 4 mmol/L (8-16); Blood Urea Nitrogen 20 mg/dL (9-20); Calcium 7.8 mg/dL (8.4-10.2); Carbon Dioxide 23 mmol/L (22-30); Chloride 110 mmol/L (98-107); Estimated CRCL calculation 63 ml/min; Estimated Glomerular Filt Rate > 60; Glucose 75 mg/dL (65-110); Potassium 3.5 mmol/L (3.4-5.0); Sodium 137 mmol/L (137-145)
[2023-08-07] MEDS: CENTRAL LINE FLUSH 10 ML IV PUSH ×4 (06:04→22:45)
[2023-08-07 07:52] LABS: Glucose Point of Care 69 mg/dl (65-105)
[2023-08-07] MEDS: DEXTROSE 50% 25 GM/50 ML SYRINGE IV PUSH (08:07)
[2023-08-07 08:52] LABS: Glucose Point of Care 157 mg/dl (65-105)
[2023-08-07] MEDS: ENOXAPARIN 40 MG/0.4 ML SYRINGE SUB-Q (08:58)
[2023-08-07] MEDS: ASPIRIN 81 MG ENTERIC TABLET PO (08:58)
[2023-08-07] MEDS: lisinopriL 5 MG TABLET PO (08:58)
[2023-08-07] MEDS: POTASSIUM CHLORIDE 20 MEQ PACKET (FOR LIQUID) PO (08:59)
[2023-08-07] MEDS: TOLNAFTATE 1% POWDER 45 GM BTL 1 APPLIC TOPICAL ×2 (09:00→20:50)
--- NOTE | 2023-08-07 09:15 | PM.PNCARD ---
Progress Note: A&P Assessment and Plan (1) NSTEMI (non-ST elevated myocardial infarction): Code(s): I21.4 - Non-ST elevation (NSTEMI) myocardial infarction Status: Acute Assessment and Plan: Patient presents as transfer from outside hospital if with significantly elevated troponin without complaints of chest pain or shortness of breath. No new acute ischemic ECG changes. Not a candidate for angiogram or standard medical therapy for NSTEMI with anticoagulation because of recent surgery and bleeding risk. Continue with conservative management at this time. Continues to deny any chest pain. Echo showed EF 50-55% with mid to basal anterolateral and anterior hypokinesis as well as hypokinesis of the apex and apical inferior irby Cardiology will sign off. Please call with questions. (2) Coronary artery disease: Qualifiers: Associated angina: without angina Coronary Disease-Associated Artery/Lesion type: [place] artery [place] vs. transplanted heart: [place] heart Qualified Code(s): I25.10 - Atherosclerotic heart disease of [place] coronary artery without angina pectoris Code(s): I25.10 - Atherosclerotic heart disease of [place] coronary artery without angina pectoris Status: Acute Assessment and Plan: No anginal symptoms yet with significant troponin elevation and new wall motion abnormalities consistent with infarction. Continue atorvastatin, resume aspirin 81 mg daily. Continue lisinopril, Jardiance 5 mg daily. (3) Atrial flutter: Qualifiers: Atrial flutter type: unspecified Qualified Code(s): I48.92 - Unspecified atrial flutter Code(s): I48.92 - Unspecified atrial flutter Status: Acute Assessment and Plan: Heart rate controlled, bradycardic. He is not currently on rate controlling agents as a result. Continue to monitor heart rate on telemetry. Does have intermittent bradycardia mostly during times of sleep. Blood pressure remains stable. Clearly has AV node dysfunction given slow ventricular response in the absence of any AV [place] agents. No indication for pacemaker at this time. Check TSH, electrolytes. Patient is a high risk for stroke with atrial flutter in general. Neuro surgery preferred to hold off on systemic anticoagulation for now to reduce bleeding complication risk. Initiate systemic a/c when okay per Neurosurg (4) Thrombocytopenia: Code(s): D69.6 - Thrombocytopenia, unspecified Status: Acute Assessment and Plan: Mild thrombocytopenia persistent, stable. Continue to follow platelet count, CBC. No evidence for active bleeding. (5) Anemia: Qualifiers: Anemia type: unspecified type Qualified Code(s): D64.9 - Anemia, unspecified Code(s): D64.9 - Anemia, unspecified Status: Acute Assessment and Plan: Follow CBC closely. Monitor for bleeding. (6) Sepsis secondary to UTI: Code(s): A41.9 - Sepsis, unspecified organism; N39.0 - Urinary tract infection, site not specified Status: Acute Assessment and Plan: Antibiotic management per primary service. (7) Type 2 diabetes mellitus: Qualifiers: Diabetes mellitus complication status: with circulatory complication Diabetes mellitus director long term care insulin use: with director long term care use Code(s): E11.9 - Type 2 diabetes mellitus without complications Status: Acute Assessment and Plan: Managed per primary service. (8) History of CVA (cerebrovascular accident): Code(s): Z86.73 - Personal history of transient ischemic attack (TIA), and cerebral infarction without residual deficits Status: Acute Assessment and Plan: Statin and antiplatelet therapy very important. Given prior CVA now he is in atrial flutter patient high risk for recurrent stroke. Systemic anticoagulation advised when able and safe from a postop perspective. (9) History of coronary artery bypass graft: Onset Date:
[2023-08-07 09:35] LABS: Glucose Point of Care 161 mg/dl (65-105)
[2023-08-07 11:39] LABS: Glucose Point of Care 125 mg/dl (65-105)
--- NOTE | 2023-08-07 14:48 | PM.IMPN ---
Progress Note: A&P Assessment and Plan (1) Sepsis secondary to UTI: Code(s): A41.9 - Sepsis, unspecified organism; N39.0 - Urinary tract infection, site not specified Status: Acute (2) Status post transmetatarsal amputation of right foot: Code(s): Z89.431 - Acquired absence of right foot Status: Acute Assessment and Plan: Stable, chronic. (3) Amputation of left foot: Code(s): S98.912A - Complete traumatic amputation of left foot, level unspecified, initial encounter Status: Acute (4) History of coronary artery bypass graft: Onset Date: 05/11/08 Code(s): Z95.1 - Presence of aortocoronary bypass graft Status: Acute (5) History of CVA (cerebrovascular accident): Code(s): Z86.73 - Personal history of transient ischemic attack (TIA), and cerebral infarction without residual deficits Status: Acute (6) Ischemic cardiomyopathy: Code(s): I25.5 - Ischemic cardiomyopathy Status: Acute (7) Carotid arterial disease: Qualifiers: Carotid artery disease type: occlusion Laterality: right Qualified Code(s): I65.21 - Occlusion and stenosis of right carotid artery Code(s): I77.9 - Disorder of arteries and arterioles, unspecified Status: Acute (8) Coronary artery disease: Qualifiers: Associated angina: without angina Coronary Disease-Associated Artery/Lesion type: [place] artery [place] vs. transplanted heart: [place] heart Qualified Code(s): I25.10 - Atherosclerotic heart disease of [place] coronary artery without angina pectoris Code(s): I25.10 - Atherosclerotic heart disease of [place] coronary artery without angina pectoris Status: Acute (9) Hypertension: Qualifiers: Hypertension type: secondary to endocrine disorders Qualified Code(s): I15.2 - Hypertension secondary to endocrine disorders Code(s): I10 - Essential (primary) hypertension Status: Acute (10) Type 2 diabetes mellitus: Qualifiers: Diabetes mellitus complication status: with circulatory complication Diabetes mellitus terminal superintendent insulin use: with terminal superintendent use Code(s): E11.9 - Type 2 diabetes mellitus without complications Status: Acute (11) Hypoglycemia: Code(s): E16.2 - Hypoglycemia, unspecified Status: Acute (12) Cervical radiculopathy: Code(s): M54.12 - Radiculopathy, cervical region Status: Acute (13) Sacral wound: Code(s): S31.000A - Unspecified open wound of lower back and pelvis without penetration into retroperitoneum, initial encounter Status: Acute (14) Malnutrition: Code(s): E46 - Unspecified protein-calorie malnutrition Status: Acute Plan 77-year-old male with history of diabetes, hypertension, bilateral foot amputations recent cervical spinal decompression surgery on 07/23, was transferred from [facility] with possible urosepsis. 1)Sepsis: Unclear source Blood culture Is negative till date Urine culture pending Wound culture growing yeast, currently on fluconazole Continue with ceftriaxone for possible UTI(pending urine culture) 2. Severe protein calorie malnutrition/failure to thrive: Patient has extremely poor p.o. intake Had a long discussion with the daughter who was present at bedside about goals of care an alternative methods of nutrition She will talk to her stepmother(patient's spouse) and her sister about it Till then we will try to encourage p.o. as much as possible 3. Diabetes mellitus: Having episodes of hypoglycemia Will hold glimepiride and Jardiance low-dose sliding scale insulin Switch to regular diet instead of her diabetic diet Hypoglycemia treatment per protocol 4. NSTEMI: Appreciate cardiology help Not a candidate for angiogram or standard medical therapy for NSTEMI with anticoagulation because of recent surgery and bleeding risk.? Continue with conservative management at this time.? Bhargavi
[2023-08-07] MEDS: FLUCONAZOLE 100 MG TABLET 200 MG PO (15:08)
[2023-08-07] MEDS: cefTRIAXone 2 GM/NS 100 ML 2 GM/100 ML BAG IVPB (15:08)
[2023-08-07 15:54] LABS: Glucose Point of Care 92 mg/dl (65-105)
--- NOTE | 2023-08-07 16:00 | PC.NURSE ---
On 08/07/23, the student, Elin [facility], provided care and completed [facility] documentation on this patient. I have reviewed the student's documentation and agree with the findings.
[2023-08-07 20:40] LABS: Glucose Point of Care 68 mg/dl (65-105)
[2023-08-07] MEDS: ATORVASTATIN 40 MG TABLET 80 MG PO (20:47)
[2023-08-07] MEDS: ACETAMINOPHEN 325 MG TABLET 650 MG PO (20:47)
[2023-08-07] MEDS: GLUCOSE ORAL GEL 15 GM OF GLUCSE IN 37.5 GM TUBE PO (20:51)
[2023-08-07 21:32] LABS: Glucose Point of Care 100 mg/dl (65-105)
[2023-08-08] VITALS (12 sets, daily range): BP systolic 100–139; BP diastolic 63–86; PULSE 61–82; RESP 20–22; TEMP 35.9–36.7; O2SAT 75–100
[2023-08-08 00:01] LABS: Glucose Point of Care 81 mg/dl (65-105)
[2023-08-08 05:04] LABS: Basophils Percent Auto 0.3 % (0.2-1.2); Eosinophils Absolute Auto 0.1 K/mm3 (0-0.3); Eosinophils Percent Auto 1.6 % (0-4.4); Hematocrit 28.9 % (42.0-52.0); Hemoglobin 9.1 g/dL (14.0-18.0); Immature Granulocyte Absolute 0.04 K/mm3 (0.00-0.031); Immature Granulocyte Percent A 0.6 % (0-0.5); Immature Platelet Fraction Pct 4.6 % (0.9-11.2); Lymphocytes Absolute Auto 1.11 K/mm3 (0.9-3.2); Lymphocytes Percent Auto 16.6 % (18.3-44.2); Mean Corpuscular HGB Conc 31.5 g/dl (32-36); Mean Corpuscular Hemoglobin 29.8 pg (26-34); Mean Corpuscular Volume 94.8 fl (80-100); Mean Platelet Volume 11.3 fl (7.4-10.4); Monocytes Absolute Auto 0.4 K/mm3 (0.1-0.6); Monocytes Percent Auto 6.3 % (2.6-8.5); Neutrophils Percent Auto 74.6 % (45.5-73.1); Platelet Count Result 125 k/mm3 (150-375); Red Blood Count 3.05 M/mm3 (4.6-6.20); Red Cell Distribution Width 15.8 % (11.5-14.5); White Blood Count 6.7 K/mm3 (4.5-10.0)
[2023-08-08 05:23] LABS: Anion Gap 4 mmol/L (8-16); Blood Urea Nitrogen 19 mg/dL (9-20); Calcium 7.8 mg/dL (8.4-10.2); Carbon Dioxide 24 mmol/L (22-30); Chloride 110 mmol/L (98-107); Estimated CRCL calculation 58 ml/min; Estimated Glomerular Filt Rate > 60; Glucose 48 mg/dL (65-110); Magnesium 2.1 mg/dL (1.6-2.3); Potassium 3.3 mmol/L (3.4-5.0); Sodium 138 mmol/L (137-145)
[2023-08-08] MEDS: DEXTROSE 50% 25 GM/50 ML SYRINGE IV PUSH (05:24)
[2023-08-08] MEDS: CENTRAL LINE FLUSH 10 ML IV PUSH ×4 (05:30→20:20)
[2023-08-08 06:16] LABS: Glucose Point of Care 124 mg/dl (65-105)
[2023-08-08 08:18] LABS: Glucose Point of Care 93 mg/dl (65-105)
--- NOTE | 2023-08-08 08:51 | ECG_ITS ---
Measurements Intervals [place] Rate: 67 P: GA: 0 QRS: 1 QRSD: 104 T: 114 QT: 424 QTc: 449 Interpretive Statements ATRIAL FLUTTER/TACHYCARDIA ANTEROSEPTAL INFARCT, AGE INDETERMINATE BORDERLINE ST-T WAVE ABNORMALITY- HIGH LATERAL LEADS BASELINE ARTIFACT- II, III, AVF, V4-V6 ABNORMAL ECG COMPARED TO ECG 08/05/2023 09:37:23 NO SIGNIFICANT CHANGES Electronically Signed On 08-08-2023 9:43:19 CDT by Kal Rocha D.O.
[2023-08-08 08:57] LABS: Glucose Point of Care 84 mg/dl (65-105)
[2023-08-08] MEDS: KCL 40 MEQ/0.9% SOD CHL 1,000 ML 50 ML IV CONT (09:30)
[2023-08-08] MEDS: ACETAMINOPHEN 325 MG TABLET 650 MG PO (09:30)
[2023-08-08] MEDS: lisinopriL 5 MG TABLET PO (09:31)
[2023-08-08] MEDS: ASPIRIN 81 MG ENTERIC TABLET PO (09:31)
[2023-08-08] MEDS: TOLNAFTATE 1% POWDER 45 GM BTL 1 APPLIC TOPICAL ×2 (09:31→20:20)
[2023-08-08] MEDS: ENOXAPARIN 40 MG/0.4 ML SYRINGE SUB-Q (09:37)
--- NOTE | 2023-08-08 10:51 | PCNFU ---
Nutrition Follow-Up Complete: Inadequate oral intake related to dementia, loss of appetite, chronic illness as evidenced by report of patient not taking in adequate nutrition at least 3 weeks Goal:Meet estimated nutrition needs Pt is not meeting any goal Pt current nutrition is Diabetic pureed, level 4, level 2 mildly thick liquids. Nutrition recommendation: consider PEG placement or hospice care Last recorded weight is 76.9 kg. Bowel Motility: +BM 08/08 Labs Reviewed: Hgb:9.1, HCT:28.9, K:3.3, Glu:124 Meds Noted: jardiance, lovenox, novolog, KCL Skin: friction noted Additional Notes: Pt continues on a pureed diet with thickened liquids. Intake is 0% all meals. Nursing reports pt is not consuming any food, declining. Family not present during assessment. Pt will need to consider a tube feeding for nutrition support or possible hospice care with comfort measures. Monitor intakes, plan of care, labs, weights, supplement tolerance, swallow ability Follow up in 3 days
[2023-08-08 12:00] LABS: Glucose Point of Care 69 mg/dl (65-105)
--- NOTE | 2023-08-08 14:29 | PM.IMPN ---
Progress Note: A&P Assessment and Plan (1) Sepsis secondary to UTI: Code(s): A41.9 - Sepsis, unspecified organism; N39.0 - Urinary tract infection, site not specified Status: Acute (2) Status post transmetatarsal amputation of right foot: Code(s): Z89.431 - Acquired absence of right foot Status: Acute Assessment and Plan: Stable, chronic. (3) Amputation of left foot: Code(s): S98.912A - Complete traumatic amputation of left foot, level unspecified, initial encounter Status: Acute (4) History of coronary artery bypass graft: Onset Date: 05/11/08 Code(s): Z95.1 - Presence of aortocoronary bypass graft Status: Acute (5) History of CVA (cerebrovascular accident): Code(s): Z86.73 - Personal history of transient ischemic attack (TIA), and cerebral infarction without residual deficits Status: Acute (6) Ischemic cardiomyopathy: Code(s): I25.5 - Ischemic cardiomyopathy Status: Acute (7) Carotid arterial disease: Qualifiers: Carotid artery disease type: occlusion Laterality: right Qualified Code(s): I65.21 - Occlusion and stenosis of right carotid artery Code(s): I77.9 - Disorder of arteries and arterioles, unspecified Status: Acute (8) Coronary artery disease: Qualifiers: Coronary Disease-Associated Artery/Lesion type: [place] artery [place] vs. transplanted heart: [place] heart Associated angina: without angina Qualified Code(s): I25.10 - Atherosclerotic heart disease of [place] coronary artery without angina pectoris Code(s): I25.10 - Atherosclerotic heart disease of [place] coronary artery without angina pectoris Status: Acute (9) Hypertension: Qualifiers: Hypertension type: secondary to endocrine disorders Qualified Code(s): I15.2 - Hypertension secondary to endocrine disorders Code(s): I10 - Essential (primary) hypertension Status: Acute (10) Type 2 diabetes mellitus: Qualifiers: Diabetes mellitus residential insulin use: with residential use Diabetes mellitus complication status: with circulatory complication Code(s): E11.9 - Type 2 diabetes mellitus without complications Status: Acute (11) Hypoglycemia: Code(s): E16.2 - Hypoglycemia, unspecified Status: Acute (12) Cervical radiculopathy: Code(s): M54.12 - Radiculopathy, cervical region Status: Acute (13) Sacral wound: Code(s): S31.000A - Unspecified open wound of lower back and pelvis without penetration into retroperitoneum, initial encounter Status: Acute (14) Malnutrition: Code(s): E46 - Unspecified protein-calorie malnutrition Status: Acute Plan 77-year-old male with history of diabetes, hypertension, bilateral foot amputations recent cervical spinal decompression surgery on 07/23, was transferred from [facility] with possible urosepsis. 1)Sepsis:unlikely at this point Unclear source Blood culture Is negative till date Urine culture negative Wound culture growing yeast, currently on fluconazole Will stop ceftriaxone 2. Severe protein calorie malnutrition/failure to thrive: Patient has extremely poor p.o. intake Called this morning on phone to discuss his goals of care. She will be coming to the hospital later this afternoon. Will talk to her [id number] Till then we will try to encourage p.o. as much as possible 3. Diabetes mellitus: Having episodes of hypoglycemia Will hold glimepiride and Jardiance low-dose sliding scale insulin Continue with regular diet instead of diabetic diet Hypoglycemia treatment per protocol Will start on D5 4. NSTEMI: Appreciate cardiology help Not a candidate for angiogram or standard medical therapy for NSTEMI with anticoagulation because of recent surgery and bleeding risk.? Continue with conservative management at this time.? Echo showed EF 50-55% with mid to basal anterolateral
[2023-08-08] MEDS: MORPHINE SULFATE (*CRX) 2 MG/ML INJ IV PUSH ×2 (15:38→20:03)
[2023-08-08] MEDS: LORazepam INJ (*CRX) 2 MG/ML VIAL IV PUSH (15:40)
--- NOTE | 2023-08-08 16:48 | PC.NURSE ---
On 08/08/23, the student, Juana [employer], provided care and completed [employer] documentation on this patient. I have reviewed the student's documentation and agree with the findings.
--- NOTE | 2023-08-08 17:31 | PC.NURSE ---
Patient had discussion with Dr. Petit and patient placed on COMFORT MEASURES. requested patient to receive pain medication and then left the hospital. Morphine and Ativan administered, patient repositioned and court recording monitor removed. calls bedside RN wanting to reverse code status to full code. Dr. Petit notified to call the , Nelida. Dr. Petit informs bedside RN to keep the orders as is; she further explained to that the patient IV antibiotics were completed and that his heart was progressively becoming weaker and cardiology signed off on his case 08/07/23. then calls bedside RN back, upset that she doesn't know what to do and that she wants him transferred to [place] or [facility]. Dr. Petit stated that she called the back to further explain his prognosis and how he has declined. He is not improving and to continue with COMFORT MEASURES. called again asking if she should come back and sit with the patient. This nurse stated, It is up to her and she should do what was best for Santhosh and her family. We will accommodate her if she wanted to spend the night with him.
--- NOTE | 2023-08-08 21:40 | PC.NURSE ---
This patient, Santhosh Adler, was transferred to [ [id number]] on 08/08/23 at 2115. Personal belongings sent with patient. Report given to [ Antonieta DIAMOND]. Appropriate documentation sent with patient. Family in room, and daughters stated they will go home tonight and discussed with new nurse to have them call if patient starts to decline.
[2023-08-09] MEDS: CENTRAL LINE FLUSH 10 ML IV PUSH ×2 (05:03→14:23)
[2023-08-09 06:38] LABS: Glucose Point of Care 61 mg/dl (65-105)
[2023-08-09] MEDS: MORPHINE SULFATE (*CRX) 2 MG/ML INJ IV PUSH ×3 (09:04→14:23)
--- NOTE | 2023-08-09 10:03 | PM.IMPN ---
Progress Note: A&P Assessment and Plan (1) Sepsis secondary to UTI: Code(s): A41.9 - Sepsis, unspecified organism; N39.0 - Urinary tract infection, site not specified Status: Acute (2) Status post transmetatarsal amputation of right foot: Code(s): Z89.431 - Acquired absence of right foot Status: Acute Assessment and Plan: Stable, chronic. (3) Amputation of left foot: Code(s): S98.912A - Complete traumatic amputation of left foot, level unspecified, initial encounter Status: Acute (4) History of coronary artery bypass graft: Onset Date: 05/11/08 Code(s): Z95.1 - Presence of aortocoronary bypass graft Status: Acute (5) History of CVA (cerebrovascular accident): Code(s): Z86.73 - Personal history of transient ischemic attack (TIA), and cerebral infarction without residual deficits Status: Acute (6) Ischemic cardiomyopathy: Code(s): I25.5 - Ischemic cardiomyopathy Status: Acute (7) Carotid arterial disease: Qualifiers: Carotid artery disease type: occlusion Laterality: right Qualified Code(s): I65.21 - Occlusion and stenosis of right carotid artery Code(s): I77.9 - Disorder of arteries and arterioles, unspecified Status: Acute (8) Coronary artery disease: Qualifiers: Coronary Disease-Associated Artery/Lesion type: [place] artery [place] vs. transplanted heart: [place] heart Associated angina: without angina Qualified Code(s): I25.10 - Atherosclerotic heart disease of [place] coronary artery without angina pectoris Code(s): I25.10 - Atherosclerotic heart disease of [place] coronary artery without angina pectoris Status: Acute (9) Hypertension: Qualifiers: Hypertension type: secondary to endocrine disorders Qualified Code(s): I15.2 - Hypertension secondary to endocrine disorders Code(s): I10 - Essential (primary) hypertension Status: Acute (10) Type 2 diabetes mellitus: Qualifiers: Diabetes mellitus jail insulin use: with jail use Diabetes mellitus complication status: with circulatory complication Code(s): E11.9 - Type 2 diabetes mellitus without complications Status: Acute (11) Hypoglycemia: Code(s): E16.2 - Hypoglycemia, unspecified Status: Acute (12) Cervical radiculopathy: Code(s): M54.12 - Radiculopathy, cervical region Status: Acute (13) Sacral wound: Code(s): S31.000A - Unspecified open wound of lower back and pelvis without penetration into retroperitoneum, initial encounter Status: Acute (14) Malnutrition: Code(s): E46 - Unspecified protein-calorie malnutrition Status: Acute (15) Comfort measures only status: Code(s): Z51.5 - Encounter for palliative care Status: Acute Plan 77-year-old male with history of diabetes, hypertension, bilateral foot amputations recent cervical spinal decompression surgery on 07/23, was transferred from [facility] with possible urosepsis. Sepsis was eventually ruled out, as blood culture and urine culture remained negative. Antibiotics was stopped. Wound culture grew yeast, was treated with fluconazole(not sure if it was just a contaminant growing around). Was seen by surgery, no intervention was required as per surgery with a sacral decubitus ulcer. Advised for local wound care. Patient continued to decline, had severe malnourishment, had been refusing to eat. Had several hypoglycemic events during the hospital course which were treated as per protocol. Also had NSTEMI, Cardiology was consulted, as per Cardiology was not a candidate for angiogram or standard medical therapy for NSTEMI with anticoagulation because of recent surgery and bleeding risk. Echo showed EF of 50-55% with mid to basal anterolateral and anterior hypokinesis as well as hypokinesis of the apex and apical inferior irby. Had multiple rounds of discu
[2023-08-09] MEDS: LORazepam INJ (*CRX) 2 MG/ML VIAL IV PUSH (11:09)
[2023-08-09] MEDS: TOLNAFTATE 1% POWDER 45 GM BTL 1 APPLIC TOPICAL (11:18)
[2023-08-09 12:00] VITALS: BP 129/75; PULSE 81; RESP 18; TEMP 36.9; O2SAT 94
--- NOTE | 2023-08-19 05:30 | PM.DS ---
DS: Admitting Diagnosis Discharge Date 08/09/23 Admitting Diagnosis Sepsis DS: Discharge Diagnosis Discharge Diagnosis (1) Comfort measures only status: Code(s): Z51.5 - Encounter for palliative care Status: Acute (2) Malnutrition: Code(s): E46 - Unspecified protein-calorie malnutrition Status: Acute (3) Wound of buttock: Code(s): S31.809A - Unspecified open wound of unspecified buttock, initial encounter Status: Acute (4) Sacral wound: Code(s): S31.000A - Unspecified open wound of lower back and pelvis without penetration into retroperitoneum, initial encounter Status: Acute (5) NSTEMI (non-ST elevated myocardial infarction): Code(s): I21.4 - Non-ST elevation (NSTEMI) myocardial infarction Status: Acute (6) Sepsis secondary to UTI: Code(s): A41.9 - Sepsis, unspecified organism; N39.0 - Urinary tract infection, site not specified Status: Acute DS: Summary Hospital Course Reason for hospitalization: Sepsis Hospital Course: 77-year-old male with history of diabetes, hypertension, bilateral foot amputations recent cervical spinal decompression surgery on 07/23, was transferred from [facility] with possible urosepsis.? Sepsis was eventually ruled out, as blood culture and urine culture remained negative.? Antibiotics was stopped.? Wound culture grew yeast, was treated with fluconazole(not sure if it was just a contaminant growing around).? Was seen by surgery, no intervention was required as per surgery with a sacral decubitus ulcer.? Advised for local wound care. Patient continued to decline, had severe malnourishment, had been refusing to eat.? Had several hypoglycemic events during the hospital course which were treated as per protocol. Also had NSTEMI, Cardiology was consulted, as per Cardiology was not a candidate for angiogram or standard medical therapy for NSTEMI with anticoagulation because of recent surgery and bleeding risk.? Echo showed EF of 50-55% with mid to basal anterolateral and anterior hypokinesis as well as hypokinesis of the apex and apical inferior irby. Had multiple rounds of discussion with the and daughters.? Was transitioned to comfort measures. Was discharged to inpatient hospice Status at Discharge Functional status at discharge: bed bound Overall status at discharge: patient is not back to baseline Time Spent with Patient Time attestation: Total time spent providing and/or coordinating discharge services: Time spent: Less than 30 minutes Exam Narrative: General physical exam:? chronically ill-appearing patient, malnourished, lethargic Head/eyes: Atraumatic ENT: dry mucous membranes Neck: Supple CVS: S1 + S2, Respiratory: Bilaterally fair air entry in both lung heart, mild B/L crackles, Abdomen: Soft, Extremities:no edema, no calf tenderness, + left foot amputation, + right foot transmetatarsal amputation Skin:not assesses Neurological: lethargic Psychiatric: not assessed Discharge Plan Discharge Consulting providers: Alberto Weeks; Vinh Au; Alda Thao; Barbara Kat; Jason Bravo; Jose Rafael Guzman; Kal Rocha; Laurie Mckeon; Spencer Flores V.; Rey Orozco Discharging Clinician: Gina Petit Anticipated Discharge Date/Time: 08/09/23 15:12 Patient Disposition: Hospice [facility] Inpatient Stand Alone Forms: General Discharge Information Follow-up/Referrals: Laurie Mckeon [employer] [facility] [Advanced Practice Nurse] - Date of admission: 08/03/23 00:54 Primary Care Provider: PHYSICIAN NOT ON STAFF,NONSTAFF Admitting Provider: Maximus Price Attending physician on admission: Gina Petit [facility] Discharge Billing [facility] Discharge Hospital Discharge: 62550 Hosp D/C 30 Min
== END 2023-08-09 15:13 | disposition hospice, inpatient (51) | DRG 280 ==
LOC: ANHIMU 08-06 11:03 → ANH3MED 08-08 22:26
PROVIDERS: Chiropractor; Internal Medicine Cardiovascular Disease; Nurse Practitioner; Admitting Provider Family Medicine; Visit Provider Internal Medicine
DX: I21.4 Non-ST elevation (NSTEMI) myocardial infarction (principal); E43 Unspecified severe protein-calorie malnutrition; N17.9 Acute kidney failure, unspecified; I48.92 Unspecified atrial flutter; L89.159 Pressure ulcer of sacral region, unspecified stage; R62.7 Adult failure to thrive; I25.5 Ischemic cardiomyopathy; I65.21 Occlusion and stenosis of right carotid artery; I25.10 Atherosclerotic heart disease of native coronary artery without angina pectoris; M54.12 Radiculopathy, cervical region; E87.6 Hypokalemia; B37.2 Candidiasis of skin and nail; D64.9 Anemia, unspecified; D69.6 Thrombocytopenia, unspecified; E78.5 Hyperlipidemia, unspecified; I73.9 Peripheral vascular disease, unspecified; I10 Essential (primary) hypertension; E11.649 Type 2 diabetes mellitus with hypoglycemia without coma; Z86.73 Personal history of transient ischemic attack (TIA), and cerebral infarction without residual deficits; Z68.23 Body mass index [BMI] 23.0-23.9, adult; Z95.1 Presence of aortocoronary bypass graft; Z98.1 Arthrodesis status; Z89.432 Acquired absence of left foot; Z89.431 Acquired absence of right foot
CPT/HCPCS: 36415; 36569; 70551; 71045; 80048; 80053; 80202; 82948; 83735; 83880; 84100; 84443; 84484; 85025; 85027; 85055; 87040; 87070; 87075; 87086; 87088; 87205; 92610; 93005; 93308; 97110; 97161; 97165; 97530; A9270; C1751; C8924; J0692; J0696; J1450; J1650; J1815; J1940; J2060; J2270; J3370; J7030; Q9957

== ENCOUNTER 2023-08-09 15:14 | HOS | payer OTHER, MEDICARE, SELFPAY ==
--- NOTE | 2023-08-09 16:12 | PM.IMHP ---
H&P: HPI History of Present Illness Date/Time: 08/09/23 16:12 Chief Complaint: Uncontrolled generalized pain; progressive multisystem failure and family desiring hospice care for end of life Narrative: This 77 year old gentleman was readmitted to [facility] 08-03-23 as a transfer from [facility], with suspicion of urosepsis, in the context of chronic indwelling baker catheter. Hospitalist notes indicate that urine and blood cultures did not grow and antibiotics were stopped. Fluconazole was given for yeast from a wound. He was also found to have had a NSTMI though was not a candidate for cardiac cath due to recent surgery and general poor medical status. Discussion by the hospitalist with the patient's and daughters eventuated with a decision to pursue comfort measures only. [facility] was consulted for General Inpatient hospice care as the patient has continued to have uncontrolled pain despite use of prn IV Morphine. ELISE masterson RN has met with the patient, and daughters at the bedside this afternoon; family is in agreement with comfort measures and hospice end of life care. Review of Systems Review of Systems: Patient can not provide as he is encephalopathic due to medical condition. [facility] Past Medical History Medical History Cerebrovascular accident Coronary artery disease Hypertension Nicotine dependence Shingles Type 2 diabetes mellitus Surgical History Surgical History History of amputation of toe (2017) History of cardiac catheterization History of coronary artery bypass graft (05/11/08) Family History Family History Other Cancer Diabetes mellitus Heart disease Social History Social History Social History: Surrogate medical decision maker: Domonique Adler, spouse. Code status: Full code. Smoking status: Never smoker Tobacco type: cigars Alcohol intake: former Drinks per week: 7 Substance use: never Lack of Transportation: No Lack of Food: Never True Current Housing: I Have Housing Concerned About Future Housing: No Difficulty Paying Gas/Electric Bills: No Difficulty Paying for Meds: No Currently Unemployed: No Education: Bachelor's Degree Difficulty w/ Childcare or Family Care: No Additional living arrangements comments: Lives with spouse in [place]. Additional occupation/education comments: Retired. Spiritual care concerns: No Meds Home Medications and Allergies Home Medications Medication Instructions Recorded Confirmed Type atorvastatin 80 mg tablet 80 mg PO HS 05/15/23 08/09/23 History dapagliflozin propanediol 5 mg 5 mg PO DAILY 05/15/23 08/09/23 History tablet (Farxiga) gabapentin 400 mg capsule 400 mg PO HS PRN nerve pain 05/15/23 08/09/23 History acetaminophen 325 mg tablet (Mapap 650 mg PO Q4H PRN Mild Pain (1-3) 07/26/23 08/09/23 Rx (acetaminophen)) Or Fever #30 tabs sulfamethoxazole 800 1 tab PO Q12HR #2 tabs 07/26/23 08/09/23 Rx mg-trimethoprim 160 mg tablet glimepiride 4 mg tablet 4 mg PO DAILY 08/03/23 08/09/23 History lisinopril 5 mg tablet 5 mg PO DAILY 08/03/23 08/09/23 History Allergies Allergy/AdvReac Type Severity Reaction Status Date / Time amoxicillin [From Augmentin] AdvReac Vomiting Verified 07/23/23 16:54 clavulanic acid AdvReac Vomiting Verified 07/23/23 16:54 [From Augmentin] oxycodone AdvReac Other Verified 07/23/23 16:54 Vital Signs 129/75 81 18 98.4 75.7kg Exam Const: Other: Encpehalopathic, does not rouse to examiner's voice. Mouth breathing, moaning intermittently. HENMT: Face/Nose/Sinus: Normal nares present Mouth: Yes dry mucous membranes and Yes Abnormal oral and palatal mucosa present Neck: Neck: supple Lymphatic: lymphadenop
[2023-08-09] MEDS: MORPHINE SULFATE INJ (*CRX) 50 MG in SODIUM CHLORIDE 0.9% IV 95 ML IV CONT (16:35)
[2023-08-09 20:00] VITALS: O2SAT 86
[2023-08-09] MEDS: diazePAM INJ (*CRX) 10 MG/2 ML SYRINGE 5 MG IV PUSH (20:51)
[2023-08-09] MEDS: GLYCOPYRROLATE INJ (*SP) 0.2 MG/ML VIAL 0.1 MG IV PUSH (20:52)
[2023-08-09 20:55] VITALS: BP 133/76; PULSE 83; RESP 10; TEMP 36.1; O2SAT 86
--- NOTE | 2023-08-09 21:00 | PC.NURSE ---
2105: Charge Nurse called to bedside to verify patient expiration.
--- NOTE | 2023-08-10 06:45 | PM.DDS ---
Discharge Summary Date and Time Date of : 08/09/23 Time of : 21:00 Provider Pronounced By: Shruti Regan Probable Cause of Probable Cause of : sepsis Summary Hospital Course: Patient was readmitted to [facility] 08-03-23 for suspected sepsis of urinary origin. He had also incurred an NSTMI and recently undergone bilateral feet amputations. His condition continued to deteriorate and family chose to pursue end-of-life comfort care. He was formally admitted as a hospice General Inpatient 08-09-23, with [facility] providing interdisciplinary hospice services. Pain and restlessness were treated with continuous IV morphine and intermittent bolus Valium. Patient was pronounced 08-09-23 as above. Additional Data Confirmation of as documented by pronouncing clinician: Pupillary Reflex, Palpable Pulses, Response to Stimuli, Heart Tones and Breath Sounds Name of Provider Notified: Juan Antonio Castrejon Time Provider Notified: 21:40 Family Requests Autopsy: No Manager Utilities Notified: Yes Date [facility] Notified of : 08/09/23 Time [facility] Notified of : 21:35 Advance directives: Yes Hospice patient?: Yes
== END 2023-08-09 21:00 | disposition expired | DRG 951 ==
PROVIDERS: Admitting Provider Internal Medicine Nephrology; Visit Provider Internal Medicine Nephrology
DX: Z51.5 Encounter for palliative care (principal); I21.4 Non-ST elevation (NSTEMI) myocardial infarction; L89.159 Pressure ulcer of sacral region, unspecified stage; I25.10 Atherosclerotic heart disease of native coronary artery without angina pectoris; I10 Essential (primary) hypertension; E11.9 Type 2 diabetes mellitus without complications; M54.12 Radiculopathy, cervical region; Z95.1 Presence of aortocoronary bypass graft; Z89.432 Acquired absence of left foot; Z89.431 Acquired absence of right foot
CPT/HCPCS: A9270; J2270; J3360